=== PATIENT | male | born 1935 | race Caucasian/White ===

== ENCOUNTER 2017-05-16 08:00 | Outpatient (CLI) | payer MEDICARE, OTHER ==
[2017-05-17 11:58] LABS: BASOPHILS # (AUTO) 0.1 10^3/uL (0.0-0.1); BASOPHILS % (AUTO) 0.9 %; EOSINOPHILS # (AUTO) 0.5 10^3/uL (0.0-0.7); EOSINOPHILS % (AUTO) 7.2 %; HCT - HEMATOCRIT 42.4 % (42.0-52.0); LYMPHOCYTES # (AUTO) 1.3 10^3/uL (1.5-3.5); LYMPHOCYTES % (AUTO) 17.6 %; MEAN CORPUSCULAR HGB CONC 33.1 g/dL (32.0-36.0); MEAN CORPUSCULAR VOLUME 90.7 fL (80.0-94.0); MONOCYTES # (AUTO) 0.5 10^3/uL (0.0-1.0); MONOCYTES % (AUTO) 6.6 %; NEUTROPHILS # (AUTO) 4.9 10^3/uL (1.5-6.6); NEUTROPHILS % (AUTO) 67.7 %; NUCLEATED RED BLOOD CELLS AUTO 0.1 /100WBC; RED BLOOD COUNT 4.68 10^6/uL (4.70-6.10); RED CELL DISTRIBUTION WIDTH 15.2 % (12.0-15.0); UNCORRECTED WHITE BLOOD COUNT 7.2 x10^3/uL; WHITE BLOOD COUNT 7.2 x10^3/uL (4.8-10.8)
[2017-05-17 12:22] LABS: ALBUMIN/GLOBULIN RATIO 1.2 (1.0-2.2); BILIRUBIN,TOTAL 0.9 mg/dL (0.2-1.0); BUN - BLOOD UREA NITROGEN 34 mg/dL (6-20); CALCIUM 9.1 mg/dL (8.5-10.3); CARBON DIOXIDE - CO2 27 mmol/L (21-32); CHLORIDE 102 mmol/L (101-111); CHOLESTEROL 175 mg/dL; CREATININE 1.4 mg/dL (0.6-1.2); GFR - MDRD 49 (>89); GLUCOSE 144 mg/dL (70-100); HDL CHOLESTEROL 35 mg/dL; LDL/HDL RATIO 2.3 (<3.6); POTASSIUM 4.6 mmol/L (3.5-5.0); SODIUM 137 mmol/L (135-145); TOTAL PROTEIN 7.5 g/dL (6.7-8.2); TRIGLYCERIDES 290 mg/dL; VLDL CHOLESTEROL 58 mg/dL
[2017-05-17 12:32] LABS: HEMOGLOBIN A1C 0.88 g/dL
== END 2017-05-16 08:01 | disposition home or self-care (01) ==
LOC: LAB.F 08:00
PROVIDERS: ATTEND Internal Medicine
DX: E11.9 Type 2 diabetes mellitus without complications (principal); E78.00 Pure hypercholesterolemia, unspecified; I10 Essential (primary) hypertension
CPT/HCPCS: 36415; 80053; 80061; 82043; 82570; 83036; 84156; 84443; 85025

== ENCOUNTER 2017-08-01 11:12 | Outpatient (CLI) | payer MEDICARE, OTHER | END 2017-08-01 11:13 | disposition home or self-care (01) | LOC: SC 11:12 | PROVIDERS: ATTEND Internal Medicine Pulmonary Disease | DX: G47.33 Obstructive sleep apnea (adult) (pediatric) (principal) | CPT/HCPCS: 99203; G0463; 99212 ==

== ENCOUNTER 2017-09-05 14:13 | Outpatient (CLI) | payer MEDICARE, OTHER | END 2017-09-05 14:14 | disposition home or self-care (01) | LOC: SC 14:13 | PROVIDERS: ATTEND Internal Medicine Pulmonary Disease | DX: G47.33 Obstructive sleep apnea (adult) (pediatric) (principal) | CPT/HCPCS: 99213; G0463; 99212 ==

== ENCOUNTER 2017-12-26 07:22 | Outpatient (CLI) | payer MEDICARE, OTHER ==
[2017-12-26 11:06] LABS: BASOPHILS # (AUTO) 0.1 10^3/uL (0.0-0.1); BASOPHILS % (AUTO) 1.4 %; EOSINOPHILS # (AUTO) 0.5 10^3/uL (0.0-0.7); EOSINOPHILS % (AUTO) 7.7 %; HGB - HEMOGLOBIN 12.8 g/dL (14.0-18.0); LYMPHOCYTES % (AUTO) 17.3 %; MEAN CORPUSCULAR HEMOGLOBIN 30.1 pg (27.0-31.0); MEAN CORPUSCULAR HGB CONC 33.3 g/dL (32.0-36.0); MEAN CORPUSCULAR VOLUME 90.4 fL (80.0-94.0); MEAN PLATELET VOLUME 7.4 fL (7.4-11.4); MONOCYTES # (AUTO) 0.5 10^3/uL (0.0-1.0); MONOCYTES % (AUTO) 8.4 %; NEUTROPHILS # (AUTO) 3.9 10^3/uL (1.5-6.6); NEUTROPHILS % (AUTO) 65.2 %; PLT - PLATELET COUNT 223 10^3/uL (130-450); RED BLOOD COUNT 4.24 10^6/uL (4.70-6.10); RED CELL DISTRIBUTION WIDTH 14.6 % (12.0-15.0)
[2017-12-26 11:33] LABS: ALBUMIN 3.9 g/dL (3.2-5.5); ALBUMIN/GLOBULIN RATIO 1.2 (1.0-2.2); ALKALINE PHOSPHATASE 57 IU/L (42-121); ALT ALANINE AMINOTRANSFERASE 21 IU/L (10-60); AST ASPARTATE AMINOTRANSFERASE 20 IU/L (10-42); BILIRUBIN,TOTAL 0.8 mg/dL (0.2-1.0); BUN - BLOOD UREA NITROGEN 34 mg/dL (6-20); CALCIUM 8.8 mg/dL (8.5-10.3); CARBON DIOXIDE - CO2 26 mmol/L (21-32); CHLORIDE 104 mmol/L (101-111); CHOL/HDL RATIO 4.9 (<5.0); CHOLESTEROL 166 mg/dL; CREATININE 1.5 mg/dL (0.6-1.2); GFR - MDRD 45 (>89); GLUCOSE 132 mg/dL (70-100); HDL CHOLESTEROL 34 mg/dL; LDL CHOLESTEROL,CALCULATED 101 mg/dL; SODIUM 137 mmol/L (135-145); TOTAL PROTEIN 7.2 g/dL (6.7-8.2); VLDL CHOLESTEROL 31 mg/dL
[2017-12-26 11:36] LABS: HB2 TOTAL 14.4 g/dL; HEMOGLOBIN A1C 0.74 g/dL; HEMOGLOBIN A1C % 6.9 % (4.6-6.2)
== END 2017-12-26 07:23 | disposition home or self-care (01) ==
LOC: LAB.F 07:22
PROVIDERS: ATTEND Family Medicine
DX: E78.00 Pure hypercholesterolemia, unspecified (principal); E11.9 Type 2 diabetes mellitus without complications; I10 Essential (primary) hypertension; J44.9 Chronic obstructive pulmonary disease, unspecified
CPT/HCPCS: 36415; 80053; 80061; 83036; 83721; 85025

== ENCOUNTER 2018-08-29 11:57 | Outpatient (CLI) | payer MEDICARE, OTHER ==
[2018-08-29 17:37] LABS: HB2 TOTAL 13.8 g/dL; HEMOGLOBIN A1C 0.85 g/dL; HEMOGLOBIN A1C % 7.8 % (4.6-6.2)
[2018-08-29 17:39] LABS: ALBUMIN 3.6 g/dL (3.2-5.5); ALBUMIN/GLOBULIN RATIO 1.1 (1.0-2.2); ALKALINE PHOSPHATASE 52 IU/L (42-121); ALT ALANINE AMINOTRANSFERASE 21 IU/L (10-60); AST ASPARTATE AMINOTRANSFERASE 19 IU/L (10-42); BILIRUBIN,TOTAL 0.8 mg/dL (0.2-1.0); BUN - BLOOD UREA NITROGEN 33 mg/dL (6-20); CALCIUM 8.7 mg/dL (8.5-10.3); CARBON DIOXIDE - CO2 24 mmol/L (21-32); CHLORIDE 101 mmol/L (101-111); CHOLESTEROL 154 mg/dL; CREATININE 1.5 mg/dL (0.6-1.2); GFR - MDRD 45 (>89); GLUCOSE 205 mg/dL (70-100); HDL CHOLESTEROL 31 mg/dL; LDL CHOLESTEROL,CALCULATED 81 mg/dL; LDL/HDL RATIO 2.6 (<3.6); SODIUM 134 mmol/L (135-145); VLDL CHOLESTEROL 42 mg/dL
== END 2018-08-29 11:58 | disposition home or self-care (01) ==
LOC: LAB.F 11:57
PROVIDERS: ATTEND Internal Medicine
DX: E11.9 Type 2 diabetes mellitus without complications (principal); E78.00 Pure hypercholesterolemia, unspecified
CPT/HCPCS: 36415; 80053; 80061; 83036; 83721

== ENCOUNTER 2019-04-11 08:47 | Outpatient (CLI) | payer MEDICARE, OTHER ==
[2019-04-11 18:13] LABS: HB2 TOTAL 13.3 g/dL; HEMOGLOBIN A1C 0.78 g/dL; HEMOGLOBIN A1C % 7.5 % (4.6-6.2)
[2019-04-11 18:15] LABS: ALBUMIN 3.8 g/dL (3.2-5.5); ALBUMIN/GLOBULIN RATIO 1.1 (1.0-2.2); ALKALINE PHOSPHATASE 44 IU/L (42-121); ALT ALANINE AMINOTRANSFERASE 24 IU/L (10-60); AST ASPARTATE AMINOTRANSFERASE 19 IU/L (10-42); BILIRUBIN,TOTAL 0.8 mg/dL (0.2-1.0); BUN - BLOOD UREA NITROGEN 36 mg/dL (6-20); CALCIUM 8.8 mg/dL (8.5-10.3); CARBON DIOXIDE - CO2 26 mmol/L (21-32); CHLORIDE 105 mmol/L (101-111); CHOL/HDL RATIO 5.2 (<5.0); CHOLESTEROL 165 mg/dL; CREATININE 1.6 mg/dL (0.6-1.2); GFR - MDRD 41 (>89); GLUCOSE 233 mg/dL (70-100); HDL CHOLESTEROL 32 mg/dL; LDL CHOLESTEROL,CALCULATED 97 mg/dL; SODIUM 139 mmol/L (135-145); TOTAL PROTEIN 7.3 g/dL (6.7-8.2); VLDL CHOLESTEROL 36 mg/dL
== END 2019-04-11 08:48 | disposition home or self-care (01) ==
LOC: LAB.S 08:47
PROVIDERS: ATTEND Internal Medicine
DX: E78.00 Pure hypercholesterolemia, unspecified (principal); E11.9 Type 2 diabetes mellitus without complications
CPT/HCPCS: 36415; 80053; 80061; 83036; 83721

== ENCOUNTER 2019-08-03 10:08 | Outpatient (CLI) | payer MEDICARE, OTHER ==
[2019-08-03 18:40] LABS: ALBUMIN 3.7 g/dL (3.2-5.5); ALBUMIN/GLOBULIN RATIO 1.1 (1.0-2.2); ALKALINE PHOSPHATASE 56 IU/L (42-121); ALT ALANINE AMINOTRANSFERASE 22 IU/L (10-60); AST ASPARTATE AMINOTRANSFERASE 19 IU/L (10-42); BILIRUBIN,TOTAL 0.9 mg/dL (0.2-1.0); BUN - BLOOD UREA NITROGEN 27 mg/dL (6-20); CALCIUM 8.8 mg/dL (8.5-10.3); CARBON DIOXIDE - CO2 27 mmol/L (21-32); CHLORIDE 103 mmol/L (101-111); CHOL/HDL RATIO 4.4 (<5.0); CHOLESTEROL 170 mg/dL; CREATININE 1.7 mg/dL (0.6-1.2); GFR - MDRD 39 (>89); GLUCOSE 230 mg/dL (70-100); HDL CHOLESTEROL 39 mg/dL; LDL CHOLESTEROL,CALCULATED 91 mg/dL; LDL/HDL RATIO 2.3 (<3.6); SODIUM 140 mmol/L (135-145); TOTAL PROTEIN 7.1 g/dL (6.7-8.2); VLDL CHOLESTEROL 40 mg/dL
[2019-08-03 19:03] LABS: HB2 TOTAL 12.5 g/dL; HEMOGLOBIN A1C 0.87 g/dL; HEMOGLOBIN A1C % 8.5 % (4.6-6.2)
== END 2019-08-03 10:09 | disposition home or self-care (01) ==
LOC: LAB.S 10:08
PROVIDERS: ATTEND Internal Medicine
DX: E11.9 Type 2 diabetes mellitus without complications (principal); E78.00 Pure hypercholesterolemia, unspecified
CPT/HCPCS: 36415; 80053; 80061; 83036; 83721

== ENCOUNTER 2020-05-26 11:42 | Outpatient (CLI) | payer MEDICARE, OTHER | END 2020-05-26 11:43 | disposition critical access hospital (66) | LOC: EMS 11:42 | PROVIDERS: ATTEND Surgery | DX: R55 Syncope and collapse (principal); R11.2 Nausea with vomiting, unspecified | CPT/HCPCS: A0425; A0427 ==

== ENCOUNTER 2020-05-26 12:08 | Emergency (ER) | payer MEDICARE, OTHER ==
--- NOTE | 2020-05-26 12:58 | ED Physician Documentation ---
History of Present Illness - Stated complaint Stated Complaint: NEAR SYNCOPE - History obtained from History obtained from: Patient (see downtime charting) Results - EKG (time done) 1212 Rate: Rate (enter#) (70) Rhythm: Atrial flutter, Paced (ventricular) Computer interpretation: Agree with computer PD MEDICAL DECISION MAKING - ED course ED course: Orthostatics normal 69yo M nearsyncopal with BM. SBP was 60. Now better. Labs unremarkable, renal function at baseline. No sx Departure - Departure Disposition: 01 Home, Self Care Clinical Impression: Near syncope, Transient hypotension Condition: Stable
[2020-05-26 16:33] LABS: ALBUMIN 3.3 g/dL (3.2-5.5); BILIRUBIN,TOTAL 0.6 mg/dL (0.2-1.0); CALCIUM 8.7 mg/dL (8.5-10.3); CREATININE 1.7 mg/dL (0.6-1.2); TOTAL PROTEIN 6.5 g/dL (6.7-8.2)
[2020-05-26 17:19] LABS: BASOPHILS # (AUTO) 0.1 10^3/uL (0.0-0.1); BASOPHILS % (AUTO) 0.7 %; EOSINOPHILS # (AUTO) 0.4 10^3/uL (0.0-0.7); EOSINOPHILS % (AUTO) 3.6 %; HGB - HEMOGLOBIN 10.8 g/dL (14.0-18.0); LYMPHOCYTES # (AUTO) 0.9 10^3/uL (1.5-3.5); LYMPHOCYTES % (AUTO) 8.1 %; MEAN CORPUSCULAR HGB CONC 32.4 g/dL (32.0-36.0); MEAN CORPUSCULAR VOLUME 95.7 fL (80.0-94.0); MEAN PLATELET VOLUME 9.1 fL (7.4-11.4); MONOCYTES # (AUTO) 0.6 10^3/uL (0.0-1.0); MONOCYTES % (AUTO) 5.1 %; NEUTROPHILS # (AUTO) 9.2 10^3/uL (1.5-6.6); PLT - PLATELET COUNT 245 10^3/uL (130-450); RED BLOOD COUNT 3.48 10^6/uL (4.70-6.10); RED CELL DISTRIBUTION WIDTH 12.8 % (12.0-15.0); WHITE BLOOD COUNT 11.2 x10^3/uL (4.8-10.8)
== END 2020-05-26 14:26 | disposition home or self-care (01) ==
LOC: EDUNIT# → ED 12:08
DX: R55 Syncope and collapse (principal); I95.9 Hypotension, unspecified; I48.92 Unspecified atrial flutter; Z95.0 Presence of cardiac pacemaker; I10 Essential (primary) hypertension; E11.9 Type 2 diabetes mellitus without complications
CPT/HCPCS: 36415; 80053; 83690; 84484; 85025; 93005; 99283

== ENCOUNTER 2020-06-20 09:25 | Outpatient (CLI) | payer MEDICARE, OTHER ==
[2020-06-20 15:49] LABS: CALCIUM 9.1 mg/dL (8.5-10.3); CREATININE 1.6 mg/dL (0.6-1.2)
[2020-06-20 16:08] LABS: CREATININE,URINE 97.4 mg/dL; MICROALBUM/CREATININE RATIO,UR 760.8 ug/mg (<30.0); MICROALBUMIN,URINE 74.1 mg/dL (0-300.0)
[2020-06-20 19:58] LABS: HEMOGLOBIN A1c% 6.5 % (4.27-6.07)
== END 2020-06-20 09:26 | disposition home or self-care (01) ==
LOC: LAB.S 09:25
PROVIDERS: ATTEND Registered Nurse
DX: E78.00 Pure hypercholesterolemia, unspecified (principal); I10 Essential (primary) hypertension; E11.9 Type 2 diabetes mellitus without complications
CPT/HCPCS: 36415; 80048; 82043; 82570; 83036

== ENCOUNTER 2021-02-03 10:42 | Outpatient (CLI) | payer MEDICARE, OTHER ==
[2021-02-03 14:27] LABS: BASOPHILS # (AUTO) 0.1 10^3/uL (0.0-0.1); BASOPHILS % (AUTO) 0.9 %; EOSINOPHILS # (AUTO) 0.4 10^3/uL (0.0-0.7); EOSINOPHILS % (AUTO) 4.9 %; HCT - HEMATOCRIT 36.4 % (42.0-52.0); HGB - HEMOGLOBIN 11.7 g/dL (14.0-18.0); LYMPHOCYTES # (AUTO) 0.9 10^3/uL (1.5-3.5); LYMPHOCYTES % (AUTO) 11.8 %; MEAN CORPUSCULAR HEMOGLOBIN 30.1 pg (27.0-31.0); MEAN CORPUSCULAR HGB CONC 32.1 g/dL (32.0-36.0); MEAN CORPUSCULAR VOLUME 93.6 fL (80.0-94.0); MEAN PLATELET VOLUME 9.8 fL (7.4-11.4); MONOCYTES # (AUTO) 0.5 10^3/uL (0.0-1.0); MONOCYTES % (AUTO) 6.7 %; NEUTROPHILS % (AUTO) 75.6 %; PLT - PLATELET COUNT 241 10^3/uL (130-450); RED BLOOD COUNT 3.89 10^6/uL (4.70-6.10); RED CELL DISTRIBUTION WIDTH 13.3 % (12.0-15.0); WHITE BLOOD COUNT 7.9 x10^3/uL (4.8-10.8)
[2021-02-03 15:09] LABS: ALBUMIN 3.9 g/dL (3.2-5.5); ALBUMIN/GLOBULIN RATIO 1.2 (1.0-2.2); ALKALINE PHOSPHATASE 48 IU/L (42-121); ALT ALANINE AMINOTRANSFERASE 23 IU/L (10-60); AST ASPARTATE AMINOTRANSFERASE 18 IU/L (10-42); BUN - BLOOD UREA NITROGEN 40 mg/dL (6-20); CALCIUM 9.1 mg/dL (8.5-10.3); CARBON DIOXIDE - CO2 24 mmol/L (21-32); CHLORIDE 105 mmol/L (101-111); CHOL/HDL RATIO 3.9 (<5.0); CHOLESTEROL 154 mg/dL; CREATININE 1.7 mg/dL (0.6-1.2); GFR - MDRD 38 (>89); GLUCOSE 160 mg/dL (70-100); HDL CHOLESTEROL 39 mg/dL; LDL CHOLESTEROL,CALCULATED 94 mg/dL; LDL/HDL RATIO 2.4 (<3.6); POTASSIUM 4.4 mmol/L (3.5-5.0); SODIUM 139 mmol/L (135-145); TOTAL PROTEIN 7.2 g/dL (6.7-8.2); TRIGLYCERIDES 106 mg/dL; VLDL CHOLESTEROL 21 mg/dL
[2021-02-03 15:12] LABS: THYROID STIMULATING HORMONE 2.08 uIU/mL (0.34-5.60)
[2021-02-03 15:24] LABS: CREATININE,URINE 137.7 mg/dL; MICROALBUM/CREATININE RATIO,UR 827.9 ug/mg (<30.0)
[2021-02-03 20:48] LABS: ESTIMATED AVERAGE GLUCOSE 126 mg/dL (70-100)
== END 2021-02-03 10:43 | disposition home or self-care (01) ==
LOC: LAB.S 10:42
PROVIDERS: ATTEND Registered Nurse
DX: E78.5 Hyperlipidemia, unspecified (principal); J44.9 Chronic obstructive pulmonary disease, unspecified; I10 Essential (primary) hypertension; E11.9 Type 2 diabetes mellitus without complications
CPT/HCPCS: 36415; 80053; 80061; 82043; 82570; 83036; 83721; 84443; 85025

== ENCOUNTER 2022-03-17 10:50 | Outpatient (CLI) | payer MEDICARE, OTHER ==
[2022-03-17 14:40] LABS: BASOPHILS # (AUTO) 0.1 10^3/uL (0.0-0.1); BASOPHILS % (AUTO) 0.7 %; EOSINOPHILS # (AUTO) 0.3 10^3/uL (0.0-0.7); HCT - HEMATOCRIT 37.3 % (42.0-52.0); HGB - HEMOGLOBIN 11.6 g/dL (14.0-18.0); LYMPHOCYTES # (AUTO) 0.9 10^3/uL (1.5-3.5); LYMPHOCYTES % (AUTO) 12.6 %; MEAN CORPUSCULAR HEMOGLOBIN 29.9 pg (27.0-31.0); MEAN CORPUSCULAR HGB CONC 31.1 g/dL (32.0-36.0); MEAN CORPUSCULAR VOLUME 96.1 fL (80.0-94.0); MONOCYTES # (AUTO) 0.6 10^3/uL (0.0-1.0); MONOCYTES % (AUTO) 8.2 %; NEUTROPHILS % (AUTO) 74.4 %; PLT - PLATELET COUNT 189 10^3/uL (130-450); RED BLOOD COUNT 3.88 10^6/uL (4.70-6.10); RED CELL DISTRIBUTION WIDTH 13.7 % (12.0-15.0); WHITE BLOOD COUNT 6.7 x10^3/uL (4.8-10.8)
[2022-03-17 15:30] LABS: THYROID STIMULATING HORMONE 3.27 uIU/mL (0.34-5.60)
[2022-03-17 15:34] LABS: ALBUMIN 3.1 g/dL (3.2-5.5); ALBUMIN/GLOBULIN RATIO 0.9 (1.0-2.2); ALKALINE PHOSPHATASE 57 IU/L (42-121); ALT ALANINE AMINOTRANSFERASE 27 IU/L (10-60); AST ASPARTATE AMINOTRANSFERASE 25 IU/L (10-42); BILIRUBIN,TOTAL 0.9 mg/dL (0.2-1.0); BUN - BLOOD UREA NITROGEN 44 mg/dL (6-20); CALCIUM 8.6 mg/dL (8.5-10.3); CARBON DIOXIDE - CO2 29 mmol/L (21-32); CHLORIDE 105 mmol/L (101-111); CHOL/HDL RATIO 4.3 (<5.0); CHOLESTEROL 172 mg/dL; CREATININE 1.8 mg/dL (0.6-1.2); GFR - MDRD 36 (>89); GLUCOSE 130 mg/dL (70-100); HDL CHOLESTEROL 40 mg/dL; LDL CHOLESTEROL,CALCULATED 89 mg/dL; LDL/HDL RATIO 2.2 (<3.6); POTASSIUM 4.9 mmol/L (3.5-5.0); SODIUM 139 mmol/L (135-145); TOTAL PROTEIN 6.6 g/dL (6.7-8.2); TRIGLYCERIDES 217 mg/dL; VLDL CHOLESTEROL 43 mg/dL
[2022-03-17 20:54] LABS: ESTIMATED AVERAGE GLUCOSE 160 mg/dL (70-100); HEMOGLOBIN A1c% 7.2 % (4.27-6.07)
== END 2022-03-17 10:51 | disposition home or self-care (01) ==
LOC: LAB.S 10:50
PROVIDERS: ATTEND Registered Nurse
DX: Z00.00 Encounter for general adult medical examination without abnormal findings (principal); E78.00 Pure hypercholesterolemia, unspecified; I10 Essential (primary) hypertension; E11.9 Type 2 diabetes mellitus without complications
CPT/HCPCS: 36415; 80053; 80061; 83036; 83721; 84443; 85025

== ENCOUNTER 2022-05-07 11:30 | Outpatient (CLI) | payer MEDICARE, OTHER ==
[2022-05-07 14:26] LABS: BASOPHILS # (AUTO) 0.1 10^3/uL (0.0-0.1); BASOPHILS % (AUTO) 0.8 %; EOSINOPHILS # (AUTO) 0.3 10^3/uL (0.0-0.7); EOSINOPHILS % (AUTO) 3.5 %; HCT - HEMATOCRIT 36.2 % (42.0-52.0); HGB - HEMOGLOBIN 11.4 g/dL (14.0-18.0); LYMPHOCYTES # (AUTO) 0.7 10^3/uL (1.5-3.5); LYMPHOCYTES % (AUTO) 9.5 %; MEAN CORPUSCULAR HEMOGLOBIN 29.8 pg (27.0-31.0); MEAN CORPUSCULAR HGB CONC 31.5 g/dL (32.0-36.0); MEAN CORPUSCULAR VOLUME 94.5 fL (80.0-94.0); MEAN PLATELET VOLUME 9.9 fL (7.4-11.4); MONOCYTES # (AUTO) 0.6 10^3/uL (0.0-1.0); MONOCYTES % (AUTO) 7.6 %; NEUTROPHILS # (AUTO) 6.1 10^3/uL (1.5-6.6); NEUTROPHILS % (AUTO) 78.3 %; PLT - PLATELET COUNT 235 10^3/uL (130-450); RED BLOOD COUNT 3.83 10^6/uL (4.70-6.10); RED CELL DISTRIBUTION WIDTH 13.4 % (12.0-15.0); WHITE BLOOD COUNT 7.7 x10^3/uL (4.8-10.8)
[2022-05-07 14:47] LABS: ALBUMIN/GLOBULIN RATIO 0.9 (1.0-2.2); BILIRUBIN,TOTAL 0.6 mg/dL (0.2-1.0); CALCIUM 8.7 mg/dL (8.5-10.3); CREATININE 2.2 mg/dL (0.6-1.2); POTASSIUM 4.3 mmol/L (3.5-5.0); TOTAL PROTEIN 6.5 g/dL (6.7-8.2)
== END 2022-05-07 11:31 | disposition home or self-care (01) ==
LOC: LAB.S 11:30
PROVIDERS: ATTEND Registered Nurse
DX: I50.9 Heart failure, unspecified (principal); N28.9 Disorder of kidney and ureter, unspecified
CPT/HCPCS: 36415; 80053; 83880; 85025

== ENCOUNTER 2022-06-17 11:10 | Outpatient (CLI) | payer MEDICARE, OTHER ==
[2022-06-17 14:55] LABS: CREATININE,URINE 32.1 mg/dL; PROTEIN/CREATININE RATIO,URINE 4.2 (<=0.2)
[2022-06-17 15:10] LABS: ALBUMIN 3.5 g/dL (3.2-5.5); CALCIUM 8.9 mg/dL (8.5-10.3); CREATININE 2.3 mg/dL (0.6-1.2); PHOSPHORUS 3.8 mg/dL (2.5-4.6); POTASSIUM 4.4 mmol/L (3.5-5.0)
== END 2022-06-17 11:11 | disposition home or self-care (01) ==
LOC: LAB.S 11:10
PROVIDERS: ATTEND Internal Medicine Nephrology
DX: N18.32 Chronic kidney disease, stage 3b (principal)
CPT/HCPCS: 36415; 80069; 82570; 84156

== ENCOUNTER 2022-06-25 10:27 | Outpatient (CLI) | payer MEDICARE, OTHER ==
[2022-06-25 15:22] LABS: ALBUMIN 3.2 g/dL (3.2-5.5); CALCIUM 8.5 mg/dL (8.5-10.3); CREATININE 2.4 mg/dL (0.6-1.2); PHOSPHORUS 4.5 mg/dL (2.5-4.6)
[2022-06-25 16:59] LABS: CREATININE,URINE 53.9 mg/dL; PROTEIN/CREATININE RATIO,URINE 2.9 (<=0.2)
== END 2022-06-25 10:28 | disposition home or self-care (01) ==
LOC: LAB.S 10:27
PROVIDERS: ATTEND Internal Medicine Nephrology
DX: N18.32 Chronic kidney disease, stage 3b (principal)
CPT/HCPCS: 36415; 80069; 82570; 84156

== ENCOUNTER 2022-07-23 10:39 | Outpatient (CLI) | payer MEDICARE, OTHER ==
[2022-07-23 15:33] LABS: CREATININE,URINE 25.6 mg/dL; PROTEIN/CREATININE RATIO,URINE 3.2 (<=0.2)
[2022-07-23 15:57] LABS: ALBUMIN 3.4 g/dL (3.2-5.5); CALCIUM 8.7 mg/dL (8.5-10.3); CREATININE 2.5 mg/dL (0.6-1.2); PHOSPHORUS 4.6 mg/dL (2.5-4.6); POTASSIUM 4.3 mmol/L (3.5-5.0)
== END 2022-07-23 10:40 | disposition home or self-care (01) ==
LOC: LAB.S 10:39
PROVIDERS: ATTEND Internal Medicine Nephrology
DX: N18.32 Chronic kidney disease, stage 3b (principal)
CPT/HCPCS: 36415; 80069; 82570; 84156

== ENCOUNTER 2022-08-07 06:40 | Outpatient (CLI) | payer MEDICARE, OTHER | END 2022-08-07 06:41 | disposition critical access hospital (66) | LOC: EMS 06:40 | DX: U07.1 COVID-19 (principal); R53.1 Weakness; R55 Syncope and collapse | CPT/HCPCS: A0425; A0429 ==

== ENCOUNTER 2022-08-07 09:28 | Inpatient (IN) | payer MEDICARE, OTHER ==
--- OUTSIDE RECORDS SUMMARY | 2022-08-07 09:38 | EXTERNAL MEDICAL SUMMARY RPT | Continuity of Care Document ---
:1935 Author Organization [facility] Address [address] [place] [address] Phone Care Team Providers Name Role Phone Unavailable Unavailable Unavailable Claudette Hui Unavailable Unavailable Allergies No information. Encounters No information. Functional Status No information. Immunizations No information. Medications date description facility 2022-06-13 00:00 insulin glargine Walk[facility] 2022-07-28 00:00 insulin glargine Walk-In Clinic [facility] 2022-06-01 00:00 losartan-hydrochlorothiazide Walk-In [facility] Services [facility] 2022-06-02 00:00 losartan-hydrochlorothiazide Walk-In [facility] 2022-06-17 00:00 losartan-hydrochlorothiazide Walk-In [facility] 2022-06-18 00:00 losartan-hydrochlorothiazide Walk-In [facility] 2022-06-25 00:00 losartan-hydrochlorothiazide Walk-In [facility] 2022-06-29 00:00 losartan-hydrochlorothiazide Walk-In [facility] 2022-07-01 00:00 losartan-hydrochlorothiazide Walk-In [facility] 2022-07-23 00:00 losartan-hydrochlorothiazide Walk-In [facility] 2022-07-26 00:00 losartan-hydrochlorothiazide Walk-In [facility] 2022-07-28 00:00 losartan-hydrochlorothiazide Walk-In [facility] 2022-08-01 00:00 losartan-hydrochlorothiazide Walk-In [facility] 2022-08-05 00:00 losartan-hydrochlorothiazide Walk-In [facility] 2022-06-01 00:00 hydrochlorothiazide [facility] 2022-06-02 00:00 hydrochlorothiazide [facility] 2022-06-17 00:00 hydrochlorothiazide [facility] 2022-06-18 00:00 hydrochlorothiazide [facility] 2022-06-25 00:00 hydrochlorothiazide [facility] 2022-06-29 00:00 hydrochlorothiazide [facility] 2022-07-01 00:00 hydrochlorothiazide [facility] 2022-07-23 00:00 hydrochlorothiazide [facility] 2022-07-26 00:00 hydrochlorothiazide [facility] 2022-07-28 00:00 hydrochlorothiazide [facility] 2022-08-01 00:00 hydrochlorothiazide [facility] 2022-08-05 00:00 hydrochlorothiazide [facility] 2022-06-01 00:00 furosemide [facility] 2022-06-02 00:00 furosemide [facility] 2022-06-17 00:00 furosemide [facility] 2022-06-18 00:00 furosemide [facility] 2022-06-25 00:00 furosemide [facility] 2022-06-29 00:00 furosemide [facility] 2022-07-01 00:00 furosemide [facility] 2022-07-23 00:00 furosemide [facility] 2022-07-26 00:00 furosemide [facility] 2022-07-28 00:00 furosemide [facility] 2022-08-01 00:00 furosemide [facility] 2022-08-05 00:00 furosemide [facility] 2022-07-28 00:00 blood-glucose meter Walk-In Clinic [facility] 2022-08-05 00:00 blood-glucose meter Walk-In [facility] 2022-07-28 00:00 pen needle, diabetic Walk-In Clinic [facility] 2022-06-13 00:00 insulin glargine [facility] 2022-07-28 00:00 insulin glargine [facility] 2022-06-01 00:00 ascorbic acid (vitamin c) Walk-In Clin [facility] 2022-06-02 00:00 ascorbic acid (vitamin c) Walk-In Clin ic [facility] 2022-06-17 00:00 ascorbic acid (vitamin c) Walk-In Clin ic [facility] 2022-06-18 00:00 ascorbic acid (vitamin c) Walk-In Clin ic [facility] 2022-06-25 00:00 ascorbic acid (vitamin c) Walk-In Clin [facility] 2022-06-29 00:00 ascorbic acid (vitamin c) Walk-In Clin ic [facility] 2022-07-01 00:00 ascorbic acid (vitamin c) Walk-In Clin [facility] 2022-07-23 00:00 ascorbic acid (vitamin c) Walk-In Clin [facility] 2022-07-26 00:00 ascorbic acid (vitamin c) Walk-In Clin ic [facility] 2022-07-28 00:00 ascorbic acid (vitamin c) Walk-In Clin ic [facility] 2022-08-01 00:00 ascorbic acid (vitamin c) Walk-In Clin ic [facility] 2022-08-05 00:00 ascorbic acid (vitamin c) Walk-In Clin ic [facility] 2022-06-01 00:00 ascorbic acid (vitamin c) Walk-In Clin ic [facility] 2022-06-02 00:00 ascorbic acid (vitamin c) Walk-In Clin ic [facility] 2022-06-17 00:00 ascorbic acid (vitamin c) Walk-In Clin ic [facility] 2022-06-18 00:00 ascorbic acid (vitamin c) Walk-In Clin ic [facility] 2022-06-25 00:00 ascorbic acid (vitamin c) Walk-In Clin ic [facility] 2022-06-29 00:00 ascorbic acid (vitamin c) Walk-In Clin ic [facility] 2022-07-01 00:00 ascorbic acid (vitamin c) Walk-In Clin [facility] 2022-07-23 00:00 ascorbic acid (vitamin c) Walk-In Clin ic [facility] 2022-07-26 00:00 ascorbic acid (vitamin c) Walk-In Clin ic [facility] 2022-07-28 00:00 ascorbic acid (vitamin c) Walk-In Clin ic [facility] 2022-08-01 00:00 ascorbic acid (vitamin c) Walk-In Clin ic [facility] 2022-08-05 00:00 ascorbic acid (vitamin c) Walk-In Clin ic [facility] 2022-06-01 00:00 furosemide Walk[facility]In [facility] 2022-06-02 00:00 furosemide Walk[facility] 2022-06-17 00:00 furosemide [facility] 2022-06-18 00:00 furosemide [facility] 2022-06-25 00:00 furosemide [facility] 2022-06-29 00:00 furosemide [facility] 2022-07-01 00:00 furosemide [facility] 2022-07-23 00:00 furosemide Walk[facility] 2022-07-26 00:00 furosemide [facility] 2022-07-28 00:00 furosemide [facility] 2022-08-01 00:00 furosemide [facility] 2022-08-05 00:00 furosemide [facility] 2022-06-01 00:00 ascorbic acid (vitamin c) Walk-In Clin ic [facility] 2022-06-02 00:00 ascorbic acid (vitamin c) Walk-In Clin ic [facility] 2022-06-17 00:00 ascorbic acid (vitamin c) Walk-In Clin ic [facility] 2022-06-18 00:00 ascorbic acid (vitamin c) Walk-In Clin ic [facility] 2022-06-25 00:00 ascorbic acid (vitamin c) Walk-In Clin ic [facility] 2022-06-29 00:00 ascorbic acid (vitamin c) Walk-In Clin ic [facility] 2022-07-01 00:00 ascorbic acid (vitamin c) Walk-In Clin ic [facility] 2022-07-23 00:00 ascorbic acid (vitamin c) Walk-In Clin [facility] 2022-07-26 00:00 ascorbic acid (vitamin c) Walk-In Clin ic [facility] 2022-07-28 00:00 ascorbic acid (vitamin c) Walk-In Clin [facility] 2022-08-01 00:00 ascorbic acid (vitamin c) Walk-In Clin [facility] 2022-08-05 00:00 ascorbic acid (vitamin c) Walk-In Clin [facility] 2022-06-01 00:00 ascorbic acid (vitamin c) Walk-In Clin [facility] 2022-06-02 00:00 ascorbic acid (vitamin c) Walk-In Clin ic [facility] 2022-06-17 00:00 ascorbic acid (vitamin c) Walk-In Clin ic [facility] 2022-06-18 00:00 ascorbic acid (vitamin c) Walk-In Clin ic [facility] 2022-06-25 00:00 ascorbic acid (vitamin c) Walk-In Clin ic [facility] 2022-06-29 00:00 ascorbic acid (vitamin c) Walk-In Clin ic [facility] 2022-07-01 00:00 ascorbic acid (vitamin c) Walk-In Clin [facility] 2022-07-23 00:00 ascorbic acid (vitamin c) Walk-In Clin ic [facility] 2022-07-26 00:00 ascorbic acid (vitamin c) Walk-In Clin ic [facility] 2022-07-28 00:00 ascorbic acid (vitamin c) Walk-In Clin [facility] 2022-08-01 00:00 ascorbic acid (vitamin c) Walk-In Clin [facility] 2022-08-05 00:00 ascorbic acid (vitamin c) Walk-In Clin [facility] 2022-06-13 00:00 insulin glargine [facility] 2022-07-28 00:00 insulin glargine [facility] 2022-06-01 00:00 loratadine Walk[facility] 2022-06-02 00:00 loratadine [facility] 2022-06-17 00:00 loratadine [facility] 2022-06-18 00:00 loratadine [facility] 2022-06-25 00:00 loratadine [facility] 2022-06-29 00:00 loratadine [facility] 2022-07-01 00:00 loratadine [facility] 2022-07-23 00:00 loratadine [facility] 2022-07-26 00:00 loratadine [facility] 2022-07-28 00:00 loratadine [facility] 2022-08-01 00:00 loratadine [facility] 2022-08-05 00:00 loratadine [facility] 2022-06-01 00:00 furosemide [facility] 2022-06-02 00:00 furosemide [facility] 2022-06-17 00:00 furosemide [facility] 2022-06-18 00:00 furosemide [facility] 2022-06-25 00:00 furosemide [facility] 2022-06-29 00:00 furosemide [facility] 2022-07-01 00:00 furosemide [facility] 2022-07-23 00:00 furosemide [facility] 2022-07-26 00:00 furosemide [facility] 2022-07-28 00:00 furosemide [facility] 2022-08-01 00:00 furosemide [facility] 2022-08-05 00:00 furosemide [facility] 2022-06-01 00:00 loratadine [facility] 2022-06-02 00:00 loratadine [facility] 2022-06-17 00:00 loratadine [facility] 2022-06-18 00:00 loratadine [facility] 2022-06-25 00:00 loratadine [facility] 2022-06-29 00:00 loratadine [facility] 2022-07-01 00:00 loratadine [facility] 2022-07-23 00:00 loratadine [facility] 2022-07-26 00:00 loratadine [facility] 2022-07-28 00:00 loratadine [facility] 2022-08-01 00:00 loratadine [facility] 2022-08-05 00:00 loratadine [facility] 2022-06-01 00:00 ascorbic acid (vitamin c) Walk-In Clin ic [facility] 2022-06-02 00:00 ascorbic acid (vitamin c) Walk-In Clin [facility] 2022-06-17 00:00 ascorbic acid (vitamin c) Walk-In Clin ic [facility] 2022-06-18 00:00 ascorbic acid (vitamin c) Walk-In Clin [facility] 2022-06-25 00:00 ascorbic acid (vitamin c) Walk-In Clin ic [facility] 2022-06-29 00:00 ascorbic acid (vitamin c) Walk-In [facility] ic Primary Care & Anc[facility] Services [facility] 2022-07-01 00:00 ascorbic acid (vitamin c) Walk-In [facility] ic Primary Care [facility] Services [facility] 2022-07-23 00:00 ascorbic acid (vitamin c) Walk-In [facility] ic Primary [facility] Services [facility] 2022-07-26 00:00 ascorbic acid (vitamin c) Walk-In [facility] 2022-07-28 00:00 ascorbic acid (vitamin c) Walk-In [facility] 2022-08-01 00:00 ascorbic acid (vitamin c) Walk-In [facility] 2022-08-05 00:00 ascorbic acid (vitamin c) Walk-In [facility] 2022-06-01 00:00 losartan-hydrochlorothiazide Walk-In [facility] 2022-06-02 00:00 losartan-hydrochlorothiazide Walk[facility]In [facility] 2022-06-17 00:00 losartan-hydrochlorothiazide Walk[facility]In [facility] 2022-06-18 00:00 losartan-hydrochlorothiazide Walk-In [facility] 2022-06-25 00:00 losartan-hydrochlorothiazide Walk-In [facility] 2022-06-29 00:00 losartan-hydrochlorothiazide Walk-In [facility] 2022-07-01 00:00 losartan-hydrochlorothiazide Walk-In [facility] 2022-07-23 00:00 losartan-hydrochlorothiazide Walk-In [facility] 2022-07-26 00:00 losartan-hydrochlorothiazide Walk-In [facility] 2022-07-28 00:00 losartan-hydrochlorothiazide Walk-In [facility] 2022-08-01 00:00 losartan-hydrochlorothiazide Walk-In [facility] 2022-08-05 00:00 losartan-hydrochlorothiazide Walk-In [facility] 2022-06-01 00:00 furosemide [facility] 2022-06-02 00:00 furosemide [facility] 2022-06-17 00:00 furosemide [facility] 2022-06-18 00:00 furosemide [facility] 2022-06-25 00:00 furosemide [facility] 2022-06-29 00:00 furosemide [facility] 2022-07-01 00:00 furosemide [facility] 2022-07-23 00:00 furosemide [facility] 2022-07-26 00:00 furosemide [facility] 2022-07-28 00:00 furosemide Walk[facility] 2022-08-01 00:00 furosemide [facility] 2022-08-05 00:00 furosemide [facility] 2022-06-01 00:00 hydrochlorothiazide [facility] 2022-06-02 00:00 hydrochlorothiazide [facility] 2022-06-17 00:00 hydrochlorothiazide [facility] 2022-06-18 00:00 hydrochlorothiazide [facility] 2022-06-25 00:00 hydrochlorothiazide [facility] 2022-06-29 00:00 hydrochlorothiazide [facility] 2022-07-01 00:00 hydrochlorothiazide [facility] 2022-07-23 00:00 hydrochlorothiazide [facility] 2022-07-26 00:00 hydrochlorothiazide [facility] 2022-07-28 00:00 hydrochlorothiazide [facility] 2022-08-01 00:00 hydrochlorothiazide [facility] 2022-08-05 00:00 hydrochlorothiazide [facility] 2022-07-28 00:00 pen needle, diabetic Walk-In [facility] 2022-06-01 00:00 loratadine Walk-[facility] 2022-06-02 00:00 loratadine [facility] 2022-06-17 00:00 loratadine Walk[facility] 2022-06-18 00:00 loratadine Walk[facility] 2022-06-25 00:00 loratadine Walk[facility] 2022-06-29 00:00 loratadine Walk[facility] 2022-07-01 00:00 loratadine Walk[facility] 2022-07-23 00:00 loratadine Walk[facility] 2022-07-26 00:00 loratadine Walk[facility] 2022-07-28 00:00 loratadine Walk[facility] 2022-08-01 00:00 loratadine Walk[facility] 2022-08-05 00:00 loratadine Walk[facility] 2022-06-01 00:00 hydrochlorothiazide [facility] 2022-06-02 00:00 hydrochlorothiazide [facility] 2022-06-17 00:00 hydrochlorothiazide Walk-In [facility] 2022-06-18 00:00 hydrochlorothiazide Walk-In [facility] 2022-06-25 00:00 hydrochlorothiazide Walk-In [facility] 2022-06-29 00:00 hydrochlorothiazide Walk-In [facility] 2022-07-01 00:00 hydrochlorothiazide Walk-In [facility] 2022-07-23 00:00 hydrochlorothiazide Walk-In [facility] 2022-07-26 00:00 hydrochlorothiazide Walk-In [facility] 2022-07-28 00:00 hydrochlorothiazide Walk-In [facility] 2022-08-01 00:00 hydrochlorothiazide Walk-In [facility] 2022-08-05 00:00 hydrochlorothiazide Walk-In [facility] 2022-06-01 00:00 ascorbic acid (vitamin c) Walk-In Clin [facility] 2022-06-02 00:00 ascorbic acid (vitamin c) Walk-In Clin ic [facility] 2022-06-17 00:00 ascorbic acid (vitamin c) Walk-In Clin ic [facility] 2022-06-18 00:00 ascorbic acid (vitamin c) Walk-In Clin ic [facility] 2022-06-25 00:00 ascorbic acid (vitamin c) Walk-In Clin ic [facility] [facility] 2022-06-29 00:00 ascorbic acid (vitamin c) [facility] 2022-07-01 00:00 ascorbic acid (vitamin c) [facility] 2022-07-23 00:00 ascorbic acid (vitamin c) Walk[facility]In Clin [facility] 2022-07-26 00:00 ascorbic acid (vitamin c) Walk-In Clin ic [facility] 2022-07-28 00:00 ascorbic acid (vitamin c) Walk-In [facility] ic [facility] Care [facility] Services [facility] 2022-08-01 00:00 ascorbic acid (vitamin c) Walk-In [facility] ic [facility] Services [facility] 2022-08-05 00:00 ascorbic acid (vitamin c) Walk-In [facility] 2022-06-01 00:00 losartan-hydrochlorothiazide Walk-In [facility] Care [facility] Anc[facility] Services [facility] 2022-06-02 00:00 losartan-hydrochlorothiazide Walk-In [facility] 2022-06-17 00:00 losartan-hydrochlorothiazide Walk-In [facility] Care [facility] Anc[facility] Services [facility] 2022-06-18 00:00 losartan-hydrochlorothiazide Walk-In [facility] 2022-06-25 00:00 losartan-hydrochlorothiazide Walk-In [facility] 2022-06-29 00:00 losartan-hydrochlorothiazide Walk-In [facility] 2022-07-01 00:00 losartan-hydrochlorothiazide Walk-In [facility] 2022-07-23 00:00 losartan-hydrochlorothiazide Walk-In [facility] 2022-07-26 00:00 losartan-hydrochlorothiazide Walk-In [facility] 2022-07-28 00:00 losartan-hydrochlorothiazide Walk-In [facility] 2022-08-01 00:00 losartan-hydrochlorothiazide Walk-In [facility] 2022-08-05 00:00 losartan-hydrochlorothiazide Walk-In [facility] 2022-06-01 00:00 loratadine Walk[facility]In [facility] 2022-06-02 00:00 loratadine Walk[facility]In [facility] 2022-06-17 00:00 loratadine Walk[facility]In [facility] 2022-06-18 00:00 loratadine Walk[facility]In [facility] 2022-06-25 00:00 loratadine Walk[facility]In [facility] 2022-06-29 00:00 loratadine Walk[facility]In [facility] 2022-07-01 00:00 loratadine Walk[facility]In [facility] 2022-07-23 00:00 loratadine Walk[facility]In [facility] 2022-07-26 00:00 loratadine Walk[facility]In [facility] 2022-07-28 00:00 loratadine Walk[facility]In [facility] 2022-08-01 00:00 loratadine Walk[facility]In [facility] 2022-08-05 00:00 loratadine Walk[facility]In [facility] 2022-06-01 00:00 ascorbic acid (vitamin c) Walk[facility] 2022-06-02 00:00 ascorbic acid (vitamin c) Walk[facility] Clin [facility] 2022-06-17 00:00 ascorbic acid (vitamin c) Walk[facility] Clin [facility] 2022-06-18 00:00 ascorbic acid (vitamin c) Walk[facility] 2022-06-25 00:00 ascorbic acid (vitamin c) Walk[facility] 2022-06-29 00:00 ascorbic acid (vitamin c) [facility] 2022-07-01 00:00 ascorbic acid (vitamin c) Walk[facility] 2022-07-23 00:00 ascorbic acid (vitamin c) Walk[facility] 2022-07-26 00:00 ascorbic acid (vitamin c) Walk[facility] 2022-07-28 00:00 ascorbic acid (vitamin c) Walk-In Clin ic [facility] Care & Anc[facility] Services [facility] 2022-08-01 00:00 ascorbic acid (vitamin c) Walk-In Clin ic [facility] Anc[facility] Services [facility] 2022-08-05 00:00 ascorbic acid (vitamin c) Walk-In Clin ic [facility] Anc[facility] Services [facility] 2022-06-01 00:00 ascorbic acid (vitamin c) Walk-In Clin ic [facility] Anc[facility] Services [facility] 2022-06-02 00:00 ascorbic acid (vitamin c) Walk-In Clin ic [facility] Anc[facility] Services [facility] 2022-06-17 00:00 ascorbic acid (vitamin c) Walk-In Clin ic [facility] Services [facility] 2022-06-18 00:00 ascorbic acid (vitamin c) Walk-In Clin ic [facility] Services [facility] 2022-06-25 00:00 ascorbic acid (vitamin c) Walk-In Clin ic [facility] 2022-06-29 00:00 ascorbic acid (vitamin c) Walk-In Clin ic [facility] Services [facility] 2022-07-01 00:00 ascorbic acid (vitamin c) Walk-In Clin ic [facility] 2022-07-23 00:00 ascorbic acid (vitamin c) Walk-In Clin ic [facility] 2022-07-26 00:00 ascorbic acid (vitamin c) Walk-In Clin ic [facility] 2022-07-28 00:00 ascorbic acid (vitamin c) Walk-In Clin ic [facility] 2022-08-01 00:00 ascorbic acid (vitamin c) Walk-In Clin ic [facility] 2022-08-05 00:00 ascorbic acid (vitamin c) Walk-In Clin ic [facility] Services [facility] 2022-06-13 00:00 insulin glargine Walk-In Clinic [facility] 2022-07-28 00:00 insulin glargine Walk-In Clinic [facility] 2022-07-28 00:00 pen needle, diabetic Walk-In Clinic [facility] Care & Ancillary Services [facility] 2022-07-28 00:00 blood-glucose meter Walk-In Clinic [facility] Care & Ancillary Services [facility] 2022-08-05 00:00 blood-glucose meter Walk-In [facility] 2022-06-01 00:00 losartan-hydrochlorothiazide Walk-In [facility] Care [facility] Anc[facility] Services [facility] 2022-06-02 00:00 losartan-hydrochlorothiazide Walk-In [facility] Services [facility] 2022-06-17 00:00 losartan-hydrochlorothiazide Walk-In [facility] 2022-06-18 00:00 losartan-hydrochlorothiazide Walk-In [facility] 2022-06-25 00:00 losartan-hydrochlorothiazide Walk-In [facility] 2022-06-29 00:00 losartan-hydrochlorothiazide Walk-In [facility] 2022-07-01 00:00 losartan-hydrochlorothiazide Walk-In [facility] 2022-07-23 00:00 losartan-hydrochlorothiazide Walk-In [facility] 2022-07-26 00:00 losartan-hydrochlorothiazide Walk-In [facility] Services [facility] 2022-07-28 00:00 losartan-hydrochlorothiazide Walk-In [facility] 2022-08-01 00:00 losartan-hydrochlorothiazide Walk-In [facility] 2022-08-05 00:00 losartan-hydrochlorothiazide Walk-In [facility] 2022-07-28 00:00 blood-glucose meter Walk-In [facility] Care [facility] Anc[facility] Services [facility] 2022-08-05 00:00 blood-glucose meter Walk-In [facility] 2022-06-01 00:00 hydrochlorothiazide Walk-In [facility] 2022-06-02 00:00 hydrochlorothiazide Walk-In [facility] 2022-06-17 00:00 hydrochlorothiazide Walk-In [facility] 2022-06-18 00:00 hydrochlorothiazide Walk-In [facility] 2022-06-25 00:00 hydrochlorothiazide Walk-In [facility] 2022-06-29 00:00 hydrochlorothiazide Walk-In [facility] 2022-07-01 00:00 hydrochlorothiazide Walk-In [facility] 2022-07-23 00:00 hydrochlorothiazide Walk-In [facility] 2022-07-26 00:00 hydrochlorothiazide Walk-In [facility] 2022-07-28 00:00 hydrochlorothiazide Walk-In [facility] 2022-08-01 00:00 hydrochlorothiazide Walk-In [facility] 2022-08-05 00:00 hydrochlorothiazide Walk-In [facility] 2022-07-28 00:00 blood sugar diagnostic [facility] 2022-07-28 00:00 lancets Walk-In Clinic [facility] Care & Ancillary Services [facility] Problems date description facility 2022-06-29 00:00 Chronic kidney disease stage 4 Walk[facility]In [facility] 2022-06-29 00:00 Chronic kidney disease, Stage IV Walk- In Clinic [facility] Care & (severe) Ancillary Services [facility] 2022-06-29 00:00 Chronic kidney disease, stage 4 Walk-I n Clinic Primary Care & (severe) Ancillary Services [facility] Procedures date description facility 2022-06-29 00:00 Visit Code Hold Walk-In Clinic [facility] Care & Ancillary Services [facility] Results/Labs test date author facility value unit interpret ation Result panel 1 (unknown) (no date) (unknown) Walk-In (no value) (units (unk nown) Clinic Primary unknown) Care [facility] Result panel 2 (unknown) (no date) (unknown) Walk-In (no value) (units (unk nown) Clinic Primary unknown) Care [facility] Result panel 3 (unknown) (no date) (unknown) Walk-In (no value) (units (unk nown) Clinic Primary unknown) [facility] Result panel 4 (unknown) (no date) (unknown) Walk-In (no value) (units (unk nown) Clinic Primary unknown) [facility] Result panel 5 (unknown) (no date) (unknown) Walk-In (no value) (units (unk nown) Clinic Primary unknown) [facility] Result panel 6 (unknown) (no date) (unknown) Walk-In (no value) (units (unk nown) Clinic Primary unknown) [facility] Result panel 7 (unknown) (no date) (unknown) Walk-In (no value) (units (unk nown) Clinic Primary unknown) [facility] Result panel 8 (unknown) (no date) (unknown) Walk-In (no value) (units (unk nown) Clinic Primary unknown) [facility] Result panel 9 (unknown) (no date) (unknown) Walk-In (no value) (units (unk nown) Clinic Primary unknown) [facility] Result panel 10 (unknown) (no date) (unknown) Walk-In (no value) (units (unk nown) Clinic Primary unknown) [facility] Result panel 11 (unknown) (no date) (unknown) Walk-In (no value) (units (unk nown) Clinic Primary unknown) [facility] Result panel 12 (unknown) (no date) (unknown) Walk-In (no value) (units (unk nown) Clinic Primary unknown) [facility] Result panel 13 (unknown) (no date) (unknown) Walk-In (no value) (units (unk nown) Clinic Primary unknown) [facility] Result panel 14 (unknown) (no date) (unknown) Walk-In (no value) (units (unk nown) Clinic Primary unknown) [facility] Result panel 15 (unknown) (no date) (unknown) Walk-In (no value) (units (unk nown) Clinic Primary unknown) [facility] Result panel 16 (unknown) (no date) (unknown) Walk-In (no value) (units (unk nown) Clinic Primary unknown) [facility] Result panel 17 (unknown) (no date) (unknown) Walk-In (no value) (units (unk nown) Clinic Primary unknown) [facility] Result panel 18 (unknown) (no date) (unknown) Walk-In (no value) (units (unk nown) Clinic Primary unknown) [facility] Result panel 19 (unknown) (no date) (unknown) Walk-In (no value) (units (unk nown) Clinic Primary unknown) [facility] Result panel 20 (unknown) (no date) (unknown) Walk-In (no value) (units (unk nown) Clinic Primary unknown) [facility] Result panel 21 (unknown) (no date) (unknown) Walk-In (no value) (units (unk nown) Clinic Primary unknown) [facility] Result panel 22 (unknown) (no date) (unknown) Walk-In (no value) (units (unk nown) Clinic Primary unknown) [facility] Result panel 23 (unknown) (no date) (unknown) Walk-In (no value) (units (unk nown) Clinic Primary unknown) [facility] Result panel 24 (unknown) (no date) (unknown) Walk-In (no value) (units (unk nown) Clinic Primary unknown) [facility] Result panel 25 (unknown) (no date) (unknown) Walk-In (no value) (units (unk nown) Clinic Primary unknown) [facility] Result panel 26 (unknown) (no date) (unknown) Walk-In (no value) (units (unk nown) Clinic Primary unknown) [facility] Result panel 27 (unknown) (no date) (unknown) Walk-In (no value) (units (unk nown) Clinic Primary unknown) [facility] Result panel 28 (unknown) (no date) (unknown) Walk-In (no value) (units (unk nown) Clinic Primary unknown) [facility] Result panel 29 (unknown) (no date) (unknown) Walk-In (no value) (units (unk nown) Clinic Primary unknown) [facility] Result panel 30 (unknown) (no date) (unknown) Walk-In (no value) (units (unk nown) Clinic Primary unknown) [facility] Result panel 31 (unknown) (no date) (unknown) Walk-In (no value) (units (unk nown) Clinic Primary unknown) [facility] Result panel 32 (unknown) (no date) (unknown) Walk-In (no value) (units (unk nown) Clinic Primary unknown) [facility] Result panel 33 (unknown) (no date) (unknown) Walk-In (no value) (units (unk nown) Clinic Primary unknown) [facility] Result panel 34 (unknown) (no date) (unknown) Walk-In (no value) (units (unk nown) Clinic Primary unknown) [facility] Result panel 35 (unknown) (no date) (unknown) Walk-In (no value) (units (unk nown) Clinic Primary unknown) [facility] Result panel 36 (unknown) (no date) (unknown) Walk-In (no value) (units (unk nown) Clinic Primary unknown) [facility] Result panel 37 (unknown) (no date) (unknown) Walk-In (no value) (units (unk nown) Clinic Primary unknown) [facility] Result panel 38 (unknown) (no date) (unknown) Walk-In (no value) (units (unk nown) Clinic Primary unknown) [facility] Result panel 39 (unknown) (no date) (unknown) Walk-In (no value) (units (unk nown) Clinic Primary unknown) [facility] Result panel 40 (unknown) (no date) (unknown) Walk-In (no value) (units (unk nown) Clinic Primary unknown) [facility] Result panel 41 (unknown) (no date) (unknown) Walk-In (no value) (units (unk nown) Clinic Primary unknown) [facility] Result panel 42 (unknown) (no date) (unknown) Walk-In (no value) (units (unk nown) Clinic Primary unknown) [facility] Result panel 43 (unknown) (no date) (unknown) Walk-In (no value) (units (unk nown) Clinic Primary unknown) [facility] Result panel 44 (unknown) (no date) (unknown) Walk-In (no value) (units (unk nown) Clinic Primary unknown) [facility] Result panel 45 (unknown) (no date) (unknown) Walk-In (no value) (units (unk nown) Clinic Primary unknown) [facility] Result panel 46 (unknown) (no date) (unknown) Walk-In (no value) (units (unk nown) Clinic Primary unknown) [facility] Result panel 47 (unknown) (no date) (unknown) Walk-In (no value) (units (unk nown) Clinic Primary unknown) [facility] Result panel 48 (unknown) (no date) (unknown) Walk-In (no value) (units (unk nown) Clinic Primary unknown) [facility] Result panel 49 (unknown) (no date) (unknown) Walk-In (no value) (units (unk nown) Clinic Primary unknown) [facility] Result panel 50 (unknown) (no date) (unknown) Walk-In (no value) (units (unk nown) Clinic Primary unknown) [facility] Result panel 51 (unknown) (no date) (unknown) Walk-In (no value) (units (unk nown) Clinic Primary unknown) [facility] Result panel 52 (unknown) (no date) (unknown) Walk-In (no value) (units (unk nown) Clinic Primary unknown) [facility] Result panel 53 (unknown) (no date) (unknown) Walk-In (no value) (units (unk nown) Clinic Primary unknown) [facility] Result panel 54 (unknown) (no date) (unknown) Walk-In (no value) (units (unk nown) Clinic Primary unknown) [facility] Result panel 55 (unknown) (no date) (unknown) Walk-In (no value) (units (unk nown) Clinic Primary unknown) [facility] Result panel 56 (unknown) (no date) (unknown) Walk-In (no value) (units (unk nown) Clinic Primary unknown) [facility] Result panel 57 (unknown) (no date) (unknown) Walk-In (no value) (units (unk nown) Clinic Primary unknown) [facility] Result panel 58 (unknown) (no date) (unknown) Walk-In (no value) (units (unk nown) Clinic Primary unknown) [facility] Result panel 59 (unknown) (no date) (unknown) Walk-In (no value) (units (unk nown) Clinic Primary unknown) [facility] Result panel 60 (unknown) (no date) (unknown) Walk-In (no value) (units (unk nown) Clinic Primary unknown) [facility] Result panel 61 (unknown) (no date) (unknown) Walk-In (no value) (units (unk nown) Clinic Primary unknown) [facility] Result panel 62 (unknown) (no date) (unknown) Walk-In (no value) (units (unk nown) Clinic Primary unknown) [facility] Result panel 63 (unknown) (no date) (unknown) Walk-In (no value) (units (unk nown) Clinic Primary unknown) [facility] Result panel 64 (unknown) (no date) (unknown) Walk-In (no value) (units (unk nown) Clinic Primary unknown) [facility] Result panel 65 (unknown) (no date) (unknown) Walk-In (no value) (units (unk nown) Clinic Primary unknown) [facility] Result panel 66 (unknown) (no date) (unknown) Walk-In (no value) (units (unk nown) Clinic Primary unknown) [facility] Result panel 67 (unknown) (no date) (unknown) Walk-In (no value) (units (unk nown) Clinic Primary unknown) [facility] Result panel 68 (unknown) (no date) (unknown) Walk-In (no value) (units (unk nown) Clinic Primary unknown) [facility] Result panel 69 (unknown) (no date) (unknown) Walk-In (no value) (units (unk nown) Clinic Primary unknown) [facility] Result panel 70 (unknown) (no date) (unknown) Walk-In (no value) (units (unk nown) Clinic Primary unknown) [facility] Result panel 71 (unknown) (no date) (unknown) Walk-In (no value) (units (unk nown) Clinic Primary unknown) [facility] Result panel 72 (unknown) (no date) (unknown) Walk-In (no value) (units (unk nown) Clinic Primary unknown) [facility] Result panel 73 (unknown) (no date) (unknown) Walk-In (no value) (units (unk nown) Clinic Primary unknown) [facility] Result panel 74 (unknown) (no date) (unknown) Walk-In (no value) (units (unk nown) Clinic Primary unknown) [facility] Result panel 75 (unknown) (no date) (unknown) Walk-In (no value) (units (unk nown) Clinic Primary unknown) [facility] Result panel 76 (unknown) (no date) (unknown) Walk-In (no value) (units (unk nown) Clinic Primary unknown) [facility] Result panel 77 (unknown) (no date) (unknown) Walk-In (no value) (units (unk nown) Clinic Primary unknown) [facility] Result panel 78 (unknown) (no date) (unknown) Walk-In (no value) (units (unk nown) Clinic Primary unknown) [facility] Result panel 79 (unknown) (no date) (unknown) Walk-In (no value) (units (unk nown) Clinic Primary unknown) [facility] Result panel 80 (unknown) (no date) (unknown) Walk-In (no value) (units (unk nown) Clinic Primary unknown) [facility] Result panel 81 (unknown) (no date) (unknown) Walk-In (no value) (units (unk nown) Clinic Primary unknown) [facility] Result panel 82 (unknown) (no date) (unknown) Walk-In (no value) (units (unk nown) Clinic Primary unknown) [facility] Result panel 83 (unknown) (no date) (unknown) Walk-In (no value) (units (unk nown) Clinic Primary unknown) [facility] Result panel 84 (unknown) (no date) (unknown) Walk-In (no value) (units (unk nown) Clinic Primary unknown) [facility] Result panel 85 (unknown) (no date) (unknown) Walk-In (no value) (units (unk nown) Clinic Primary unknown) [facility] Result panel 86 (unknown) (no date) (unknown) Walk-In (no value) (units (unk nown) Clinic Primary unknown) [facility] Result panel 87 (unknown) (no date) (unknown) Walk-In (no value) (units (unk nown) Clinic Primary unknown) [facility] Result panel 88 (unknown) (no date) (unknown) Walk-In (no value) (units (unk nown) Clinic Primary unknown) [facility] Result panel 89 (unknown) (no date) (unknown) Walk-In (no value) (units (unk nown) Clinic Primary unknown) [facility] Result panel 90 (unknown) (no date) (unknown) Walk-In (no value) (units (unk nown) Clinic Primary unknown) [facility] Result panel 91 (unknown) (no date) (unknown) Walk-In (no [facility] Result panel 92 (unknown) (no date) (unknown) Walk-In (no value) [facility] Result panel 93 (unknown) (no date) (unknown) [facility]-In (no value) [facility] Result panel 94 (unknown) (no date) (unknown) [facility] (no value) [facility] Result panel 95 (unknown) (no date) (unknown) [facility] (no value) [facility] Result panel 96 (unknown) (no date) (unknown) [facility] (no value) [facility] Result panel 97 (unknown) (no date) (unknown) [facility] (no value) [facility] Result panel 98 (unknown) (no date) (unknown) [facility] (no value) [facility] Result panel 99 (unknown) (no date) (unknown) [facility]-In (no value) [facility] Result panel 100 (unknown) (no date) (unknown) [facility] (no value) [facility] Result panel 101 (unknown) (no date) (unknown) [facility]-In (no value) [facility] Result panel 102 (unknown) (no date) (unknown) [facility]-In (no value) [facility] Result panel 103 (unknown) (no date) (unknown) [facility] (no value) [facility] Result panel 104 (unknown) (no date) (unknown) [facility] (no value) [facility] Result panel 105 (unknown) (no date) (unknown) [facility] (no value) [facility] Result panel 106 (unknown) (no date) (unknown) [facility] (no value) [facility] Result panel 107 (unknown) (no date) (unknown) [facility] (no value) [facility] Result panel 108 (unknown) (no date) (unknown) [facility] (no value) [facility] Result panel 109 (unknown) (no date) (unknown) [facility] (no value) [facility] Result panel 110 (unknown) (no date) (unknown) [facility] (no value) [facility] Result panel 111 (unknown) (no date) (unknown) [facility] (no value) [facility] Result panel 112 (unknown) (no date) (unknown) [facility] (no value) [facility] Result panel 113 (unknown) (no date) (unknown) [facility] (no value) [facility] Result panel 114 (unknown) (no date) (unknown) [facility] (no value) [facility] Result panel 115 (unknown) (no date) (unknown) [facility] (no value) [facility] Result panel 116 (unknown) (no date) (unknown) [facility] (no value) [facility] Result panel 117 (unknown) (no date) (unknown) [facility] (no value) [facility] Result panel 118 (unknown) (no date) (unknown) [facility] (no value) [facility] Result panel 119 (unknown) (no date) (unknown) [facility] (no value) [facility] Result panel 120 (unknown) (no date) (unknown) [facility] (no value) [facility] Result panel 121 (unknown) (no date) (unknown) [facility] (no value) [facility] Result panel 122 (unknown) (no date) (unknown) [facility]-In (no value) [facility] Result panel 123 (unknown) (no date) (unknown) [facility] (no value) [facility] Result panel 124 (unknown) (no date) (unknown) [facility] (no value) [facility] Result panel 125 (unknown) (no date) (unknown) [facility] (no value) [facility] Result panel 126 (unknown) (no date) (unknown) [facility] (no value) [facility] Result panel 127 (unknown) (no date) (unknown) [facility]-In (no value) [facility] Result panel 128 (unknown) (no date) (unknown) [facility] (no value) [facility] Result panel 129 (unknown) (no date) (unknown) [facility] (no value) [facility] Result panel 130 (unknown) (no date) (unknown) [facility] (no value) [facility] Result panel 131 (unknown) (no date) (unknown) [facility] (no value) [facility] Result panel 132 (unknown) (no date) (unknown) [facility] (no value) [facility] Result panel 133 (unknown) (no date) (unknown) [facility] (no value) [facility] Result panel 134 (unknown) (no date) (unknown) [facility] (no value) [facility] Result panel 135 (unknown) (no date) (unknown) [facility] (no value) [facility] Result panel 136 (unknown) (no date) (unknown) [facility]-In (no value) [facility] Result panel 137 (unknown) (no date) (unknown) [facility] (no value) [facility] Result panel 138 (unknown) (no date) (unknown) [facility] (no value) [facility] Result panel 139 (unknown) (no date) (unknown) [facility] (no value) [facility] Result panel 140 (unknown) (no date) (unknown) [facility] (no value) [facility] Result panel 141 (unknown) (no date) (unknown) [facility] (no value) [facility] Result panel 142 (unknown) (no date) (unknown) [facility] (no value) [facility] Result panel 143 (unknown) (no date) (unknown) Walk-In (no value) [facility] Result panel 144 (unknown) (no date) (unknown) Walk-In (no value) [facility] Result panel 145 (unknown) (no date) (unknown) [facility] (no value) [facility] Result panel 146 (unknown) (no date) (unknown) [facility]-In (no value) [facility] Result panel 147 (unknown) (no date) (unknown) [facility]-In (no value) [facility] Result panel 148 (unknown) (no date) (unknown) [facility] (no value) [facility] Result panel 149 (unknown) (no date) (unknown) [facility] (no value) [facility] Result panel 150 (unknown) (no date) (unknown) [facility] (no value) [facility] Result panel 151 (unknown) (no date) (unknown) [facility] (no value) [facility] Result panel 152 (unknown) (no date) (unknown) [facility] (no value) [facility] Result panel 153 (unknown) (no date) (unknown) [facility]-In (no value) [facility] Result panel 154 (unknown) (no date) (unknown) [facility] (no value) [facility] Result panel 155 (unknown) (no date) (unknown) [facility] (no value) [facility] Result panel 156 (unknown) (no date) (unknown) [facility] (no value) [facility] Result panel 157 (unknown) (no date) (unknown) [facility]-In (no value) [facility] Result panel 158 (unknown) (no date) (unknown) [facility]-In (no value) [facility] Result panel 159 (unknown) (no date) (unknown) [facility] (no value) [facility] Result panel 160 (unknown) (no date) (unknown) [facility] (no value) [facility] Result panel 161 (unknown) (no date) (unknown) [facility] (no value) [facility] Result panel 162 (unknown) (no date) (unknown) [facility] (no value) [facility] Result panel 163 (unknown) (no date) (unknown) [facility] (no value) [facility] Result panel 164 (unknown) (no date) (unknown) [facility] (no value) [facility] Result panel 165 (unknown) (no date) (unknown) [facility] (no value) [facility] Result panel 166 (unknown) (no date) (unknown) [facility] (no value) [facility] Result panel 167 (unknown) (no date) (unknown) [facility] (no value) [facility] Result panel 168 (unknown) (no date) (unknown) [facility] (no value) [facility] Result panel 169 (unknown) (no date) (unknown) [facility] (no value) [facility] Result panel 170 (unknown) (no date) (unknown) [facility] (no value) [facility] Result panel 171 (unknown) (no date) (unknown) [facility] (no value) [facility] Result panel 172 (unknown) (no date) (unknown) Walk-In (no value) [facility] Result panel 173 (unknown) (no date) (unknown) [facility] (no value) [facility] Result panel 174 (unknown) (no date) (unknown) [facility]-In (no value) [facility] Result panel 175 (unknown) (no date) (unknown) [facility] (no value) [facility] Result panel 176 (unknown) (no date) (unknown) [facility] (no value) [facility] Result panel 177 (unknown) (no date) (unknown) [facility] (no value) [facility] Result panel 178 (unknown) (no date) (unknown) [facility] (no value) [facility] Result panel 179 (unknown) (no date) (unknown) [facility] (no value) [facility] Result panel 180 (unknown) (no date) (unknown) [facility] (no value) [facility] Result panel 181 (unknown) (no date) (unknown) [facility] (no value) [facility] Result panel 182 (unknown) (no date) (unknown) [facility] (no value) [facility] Result panel 183 (unknown) (no date) (unknown) [facility] (no value) [facility] Result panel 184 (unknown) (no date) (unknown) [facility] (no value) [facility] Result panel 185 (unknown) (no date) (unknown) [facility] (no value) [facility] Result panel 186 (unknown) (no date) (unknown) [facility] (no value) [facility] Result panel 187 (unknown) (no date) (unknown) [facility] (no value) [facility] Result panel 188 (unknown) (no date) (unknown) [facility] (no value) [facility] Result panel 189 (unknown) (no date) (unknown) [facility] (no value) [facility] Result panel 190 (unknown) (no date) (unknown) [facility] (no value) [facility] Result panel 191 (unknown) (no date) (unknown) [facility] (no value) [facility] Result panel 192 (unknown) (no date) (unknown) [facility] (no value) [facility] Result panel 193 (unknown) (no date) (unknown) [facility] (no value) [facility] Result panel 194 (unknown) (no date) (unknown) [facility] (no value) [facility] Result panel 195 (unknown) (no date) (unknown) [facility] (no value) [facility] Result panel 196 (unknown) (no date) (unknown) [facility] (no value) [facility] Result panel 197 (unknown) (no date) (unknown) [facility] (no value) [facility] Result panel 198 (unknown) (no date) (unknown) [facility] (no value) [facility] Result panel 199 (unknown) (no date) (unknown) [facility] (no value) [facility] Result panel 200 (unknown) (no date) (unknown) [facility] (no value) [facility] Result panel 201 (unknown) (no date) (unknown) [facility] (no value) [facility] Result panel 202 (unknown) (no date) (unknown) [facility] (no value) [facility] Result panel 203 (unknown) (no date) (unknown) [facility] (no value) [facility] Result panel 204 (unknown) (no date) (unknown) [facility] (no value) [facility] Result panel 205 (unknown) (no date) (unknown) [facility] (no value) [facility] Result panel 206 (unknown) (no date) (unknown) [facility] (no value) [facility] Result panel 207 (unknown) (no date) (unknown) [facility] (no value) [facility] Result panel 208 (unknown) (no date) (unknown) [facility] (no value) [facility] Result panel 209 (unknown) (no date) (unknown) [facility] (no value) [facility] Result panel 210 (unknown) (no date) (unknown) [facility] (no value) [facility] Result panel 211 (unknown) (no date) (unknown) [facility] (no value) [facility] Result panel 212 (unknown) (no date) (unknown) [facility] (no value) [facility] Result panel 213 (unknown) (no date) (unknown) [facility] (no value) [facility] Result panel 214 (unknown) (no date) (unknown) [facility] (no value) [facility] Result panel 215 (unknown) (no date) (unknown) [facility] (no value) [facility] Result panel 216 (unknown) (no date) (unknown) Walk-In (no value) [facility] Result panel 217 (unknown) (no date) (unknown) Walk-In (no value) [facility] Result panel 218 (unknown) (no date) (unknown) Walk-In (no value) [facility] Result panel 219 (unknown) (no date) (unknown) [facility] (no value) [facility] Result panel 220 (unknown) (no date) (unknown) Walk-[facility] (no value) [facility] Result panel 221 (unknown) (no date) (unknown) [facility] (no value) [facility] Result panel 222 (unknown) (no date) (unknown) [facility] (no value) [facility] Result panel 223 (unknown) (no date) (unknown) [facility] (no value) [facility] Result panel 224 (unknown) (no date) (unknown) [facility] (no value) [facility] Result panel 225 (unknown) (no date) (unknown) [facility] (no value) [facility] Result panel 226 (unknown) (no date) (unknown) [facility] (no value) [facility] Result panel 227 (unknown) (no date) (unknown) [facility] (no value) [facility] Result panel 228 (unknown) (no date) (unknown) [facility] (no value) [facility] Result panel 229 (unknown) (no date) (unknown) [facility] (no value) [facility] Result panel 230 (unknown) (no date) (unknown) [facility] (no value) [facility] Result panel 231 (unknown) (no date) (unknown) [facility] (no value) [facility] Result panel 232 (unknown) (no date) (unknown) [facility] (no value) [facility] Result panel 233 (unknown) (no date) (unknown) [facility] (no value) [facility] Result panel 234 (unknown) (no date) (unknown) [facility] (no value) [facility] Result panel 235 (unknown) (no date) (unknown) [facility] (no value) [facility] Result panel 236 (unknown) (no date) (unknown) [facility] (no value) [facility] Result panel 237 (unknown) (no date) (unknown) [facility] (no value) [facility] Result panel 238 (unknown) (no date) (unknown) [facility] (no value) [facility] Result panel 239 (unknown) (no date) (unknown) [facility] (no value) [facility] Result panel 240 (unknown) (no date) (unknown) [facility] (no value) [facility] Result panel 241 (unknown) (no date) (unknown) [facility] (no value) [facility] Result panel 242 (unknown) (no date) (unknown) [facility] (no value) [facility] Result panel 243 (unknown) (no date) (unknown) [facility] (no value) [facility] Result panel 244 (unknown) (no date) (unknown) [facility] (no value) [facility] Result panel 245 (unknown) (no date) (unknown) [facility] (no value) [facility] Result panel 246 (unknown) (no date) (unknown) [facility]-In (no value) [facility] Result panel 247 (unknown) (no date) (unknown) [facility] (no value) [facility] Result panel 248 (unknown) (no date) (unknown) [facility] (no value) [facility] Result panel 249 (unknown) (no date) (unknown) [facility] (no value) [facility] Result panel 250 (unknown) (no date) (unknown) [facility]-In (no value) [facility] Result panel 251 (unknown) (no date) (unknown) [facility]-In (no value) [facility] Result panel 252 (unknown) (no date) (unknown) [facility]-In (no value) [facility] Result panel 253 (unknown) (no date) (unknown) [facility] (no value) [facility] Result panel 254 (unknown) (no date) (unknown) [facility]-In (no value) [facility] Result panel 255 (unknown) (no date) (unknown) [facility] (no value) [facility] Result panel 256 (unknown) (no date) (unknown) [facility]-In (no value) [facility] Result panel 257 (unknown) (no date) (unknown) [facility]-In (no value) [facility] Result panel 258 (unknown) (no date) (unknown) Walk-In (no value) [facility] Result panel 259 (unknown) (no date) (unknown) Walk-In (no value) [facility] Result panel 260 (unknown) (no date) (unknown) Walk-In (no value) [facility] Result panel 261 (unknown) (no date) (unknown) Walk-In (no value) [facility] Result panel 262 (unknown) (no date) (unknown) Walk-In (no value) [facility] Result panel 263 (unknown) (no date) (unknown) [facility]-In (no value) [facility] Result panel 264 (unknown) (no date) (unknown) [facility]-In (no value) [facility] Result panel 265 (unknown) (no date) (unknown) [facility]-In (no value) [facility] Result panel 266 (unknown) (no date) (unknown) [facility] (no value) [facility] Result panel 267 (unknown) (no date) (unknown) [facility] (no value) [facility] Result panel 268 (unknown) (no date) (unknown) Walk-In (no value) [facility] Result panel 269 (unknown) (no date) (unknown) [facility]-In (no value) [facility] Result panel 270 (unknown) (no date) (unknown) [facility]-In (no value) [facility] Result panel 271 (unknown) (no date) (unknown) Walk-In (no value) [facility] Result panel 272 (unknown) (no date) (unknown) [facility] (no value) [facility] Result panel 273 (unknown) (no date) (unknown) [facility] (no value) [facility] Result panel 274 (unknown) (no date) (unknown) [facility] (no value) [facility] Result panel 275 (unknown) (no date) (unknown) Walk-In (no value) [facility] Result panel 276 (unknown) (no date) (unknown) [facility] (no value) [facility] Result panel 277 (unknown) (no date) (unknown) [facility] (no value) [facility] Result panel 278 (unknown) (no date) (unknown) Walk-In (no value) [facility] Result panel 279 (unknown) (no date) (unknown) [facility] (no value) [facility] Result panel 280 (unknown) (no date) (unknown) [facility] (no value) [facility] Result panel 281 (unknown) (no date) (unknown) Walk-In (no value) [facility] Result panel 282 (unknown) (no date) (unknown) Walk-In (no value) [facility] Result panel 283 (unknown) (no date) (unknown) [facility] (no value) [facility] Result panel 284 (unknown) (no date) (unknown) Walk-In (no value) [facility] Result panel 285 (unknown) (no date) (unknown) [facility] (no value) [facility] Result panel 286 (unknown) (no date) (unknown) [facility] (no value) [facility] Result panel 287 (unknown) (no date) (unknown) [facility] (no value) [facility] Result panel 288 (unknown) (no date) (unknown) [facility] (no value) [facility] Result panel 289 (unknown) (no date) (unknown) [facility] (no value) [facility] Result panel 290 (unknown) (no date) (unknown) [facility]-In (no value) [facility] Result panel 291 (unknown) (no date) (unknown) Walk-In (no value) [facility] Result panel 292 (unknown) (no date) (unknown) [facility] (no value) [facility] Result panel 293 (unknown) (no date) (unknown) [facility]-In (no value) [facility] Result panel 294 (unknown) (no date) (unknown) Walk-In (no value) [facility] Result panel 295 (unknown) (no date) (unknown) [facility] (no value) [facility] Result panel 296 (unknown) (no date) (unknown) Walk-In (no value) [facility] Result panel 297 (unknown) (no date) (unknown) Walk-In (no value) [facility] Result panel 298 (unknown) (no date) (unknown) Walk-In (no value) [facility] Result panel 299 (unknown) (no date) (unknown) Walk-In (no value) [facility] Result panel 300 (unknown) (no date) (unknown) Walk-In (no value) [facility] Result panel 301 (unknown) (no date) (unknown) [facility]-In (no value) [facility] Result panel 302 (unknown) (no date) (unknown) [facility]-In (no value) [facility] Result panel 303 (unknown) (no date) (unknown) [facility]-In (no value) [facility] Result panel 304 (unknown) (no date) (unknown) [facility] (no value) [facility] Result panel 305 (unknown) (no date) (unknown) Walk-In (no value) [facility] Result panel 306 (unknown) (no date) (unknown) [facility]-In (no value) [facility] Result panel 307 (unknown) (no date) (unknown) Walk-In (no value) [facility] Result panel 308 (unknown) (no date) (unknown) Walk-In (no value) [facility] Result panel 309 (unknown) (no date) (unknown) [facility] (no value) [facility] Result panel 310 (unknown) (no date) (unknown) Walk-In (no value) [facility] Result panel 311 (unknown) (no date) (unknown) Walk-[facility] (no value) [facility] Result panel 312 (unknown) (no date) (unknown) Walk-In (no value) [facility] Result panel 313 (unknown) (no date) (unknown) Walk-In (no value) [facility] Result panel 314 (unknown) (no date) (unknown) Walk-[facility] (no value) [facility] Result panel 315 (unknown) (no date) (unknown) Walk-In (no value) [facility] Result panel 316 (unknown) (no date) (unknown) Walk-In (no value) [facility] Result panel 317 (unknown) (no date) (unknown) Walk-In (no value) [facility] Result panel 318 (unknown) (no date) (unknown) [facility] (no value) [facility] Result panel 319 (unknown) (no date) (unknown) [facility] (no value) [facility] Result panel 320 (unknown) (no date) (unknown) [facility] (no value) [facility] Result panel 321 (unknown) (no date) (unknown) Walk-[facility] (no value) [facility] Result panel 322 (unknown) (no date) (unknown) [facility] (no value) [facility] Result panel 323 (unknown) (no date) (unknown) [facility] (no value) [facility] Result panel 324 (unknown) (no date) (unknown) [facility] (no value) [facility] Result panel 325 (unknown) (no date) (unknown) [facility] (no value) [facility] Result panel 326 (unknown) (no date) (unknown) Walk-In (no value) [facility] Result panel 327 (unknown) (no date) (unknown) Walk-[facility] (no value) [facility] Result panel 328 (unknown) (no date) (unknown) [facility] (no value) [facility] Result panel 329 (unknown) (no date) (unknown) [facility] (no value) [facility] Result panel 330 (unknown) (no date) (unknown) [facility] (no value) [facility] Result panel 331 (unknown) (no date) (unknown) [facility]-In (no value) [facility] Result panel 332 (unknown) (no date) (unknown) [facility] (no value) [facility] Result panel 333 (unknown) (no date) (unknown) [facility] (no value) [facility] Result panel 334 (unknown) (no date) (unknown) [facility] (no value) [facility] Result panel 335 (unknown) (no date) (unknown) Walk-In (no value) [facility] Result panel 336 (unknown) (no date) (unknown) Walk-[facility] (no value) [facility] Result panel 337 (unknown) (no date) (unknown) [facility]-In (no value) [facility] Result panel 338 (unknown) (no date) (unknown) Walk-[facility] (no value) [facility] Result panel 339 (unknown) (no date) (unknown) [facility] (no value) [facility] Result panel 340 (unknown) (no date) (unknown) Walk-In (no value) [facility] Result panel 341 (unknown) (no date) (unknown) Walk-In (no value) [facility] Result panel 342 (unknown) (no date) (unknown) Walk-In (no value) [facility] Result panel 343 (unknown) (no date) (unknown) Walk-In (no value) [facility] Result panel 344 (unknown) (no date) (unknown) Walk-In (no value) [facility] Result panel 345 (unknown) (no date) (unknown) Walk-[facility] (no value) [facility] Result panel 346 (unknown) (no date) (unknown) [facility] (no value) [facility] Result panel 347 (unknown) (no date) (unknown) Walk-[facility] (no value) [facility] Result panel 348 (unknown) (no date) (unknown) [facility] (no value) [facility] Result panel 349 (unknown) (no date) (unknown) [facility] (no value) [facility] Result panel 350 (unknown) (no date) (unknown) Walk-In (no value) [facility] Result panel 351 (unknown) (no date) (unknown) [facility] (no value) [facility] Result panel 352 (unknown) (no date) (unknown) Walk-[facility] (no value) [facility] Result panel 353 (unknown) (no date) (unknown) Walk-[facility] (no value) [facility] Result panel 354 (unknown) (no date) (unknown) Walk-[facility] (no value) [facility] Result panel 355 (unknown) (no date) (unknown) Walk-[facility] (no value) [facility] Result panel 356 (unknown) (no date) (unknown) Walk-[facility] (no value) [facility] Result panel 357 (unknown) (no date) (unknown) Walk-In (no value) [facility] Result panel 358 (unknown) (no date) (unknown) Walk-[facility] (no value) [facility] Result panel 359 (unknown) (no date) (unknown) [facility]-In (no value) [facility] Result panel 360 (unknown) (no date) (unknown) [facility]-In (no value) [facility] Result panel 361 (unknown) (no date) (unknown) [facility] (no value) [facility] Result panel 362 (unknown) (no date) (unknown) [facility] (no value) [facility] Result panel 363 (unknown) (no date) (unknown) Walk-In (no value) [facility] Result panel 364 (unknown) (no date) (unknown) Walk-[facility] (no value) [facility] Result panel 365 (unknown) (no date) (unknown) [facility] (no value) [facility] Result panel 366 (unknown) (no date) (unknown) [facility] (no value) [facility] Result panel 367 (unknown) (no date) (unknown) [facility] (no value) [facility] Result panel 368 (unknown) (no date) (unknown) Walk-In (no value) [facility] Result panel 369 (unknown) (no date) (unknown) Walk-In (no value) [facility] Result panel 370 (unknown) (no date) (unknown) Walk-In (no value) [facility] Result panel 371 (unknown) (no date) (unknown) Walk-In (no value) [facility] Result panel 372 (unknown) (no date) (unknown) [facility] (no value) [facility] Result panel 373 (unknown) (no date) (unknown) [facility] (no value) [facility] Result panel 374 (unknown) (no date) (unknown) [facility] (no value) [facility] Result panel 375 (unknown) (no date) (unknown) Walk-In (no value) [facility] Result panel 376 (unknown) (no date) (unknown) Walk-In (no value) [facility] Result panel 377 (unknown) (no date) (unknown) [facility] (no value) [facility] Result panel 378 (unknown) (no date) (unknown) Walk-[facility] (no value) [facility] Result panel 379 (unknown) (no date) (unknown) [facility]-In (no value) [facility] Result panel 380 (unknown) (no date) (unknown) [facility] (no value) [facility] Result panel 381 (unknown) (no date) (unknown) [facility] (no value) [facility] Result panel 382 (unknown) (no date) (unknown) Walk-[facility] (no value) [facility] Result panel 383 (unknown) (no date) (unknown) Walk-[facility] (no value) [facility] Result panel 384 (unknown) (no date) (unknown) Walk-In (no value) [facility] Result panel 385 (unknown) (no date) (unknown) Walk-[facility] (no value) [facility] Result panel 386 (unknown) (no date) (unknown) Walk-In (no value) [facility] Result panel 387 (unknown) (no date) (unknown) Walk-[facility] (no value) [facility] Result panel 388 (unknown) (no date) (unknown) Walk-In (no value) [facility] Result panel 389 (unknown) (no date) (unknown) Walk-In (no value) [facility] Result panel 390 (unknown) (no date) (unknown) Walk-[facility] (no value) [facility] Result panel 391 (unknown) (no date) (unknown) [facility] (no value) [facility] Result panel 392 (unknown) (no date) (unknown) [facility] (no value) [facility] Result panel 393 (unknown) (no date) (unknown) [facility] (no value) [facility] Result panel 394 (unknown) (no date) (unknown) [facility] (no value) [facility] Result panel 395 (unknown) (no date) (unknown) [facility] (no value) [facility] Result panel 396 (unknown) (no date) (unknown) Walk-[facility] (no value) [facility] Result panel 397 (unknown) (no date) (unknown) Walk-[facility] (no value) [facility] Result panel 398 (unknown) (no date) (unknown) Walk-[facility] (no value) [facility] Result panel 399 (unknown) (no date) (unknown) Walk-[facility] (no value) [facility] Result panel 400 (unknown) (no date) (unknown) Walk-In (no value) [facility] Result panel 401 (unknown) (no date) (unknown) Walk-[facility] (no value) [facility] Result panel 402 (unknown) (no date) (unknown) [facility] (no value) [facility] Result panel 403 (unknown) (no date) (unknown) Walk-[facility] (no value) [facility] Result panel 404 (unknown) (no date) (unknown) Walk-In (no value) [facility] Result panel 405 (unknown) (no date) (unknown) Walk-In (no value) [facility] Result panel 406 (unknown) (no date) (unknown) Walk-[facility] (no value) [facility] Result panel 407 (unknown) (no date) (unknown) Walk-[facility] (no value) [facility] Result panel 408 (unknown) (no date) (unknown) Walk-[facility] (no value) [facility] Result panel 409 (unknown) (no date) (unknown) [facility] (no value) [facility] Result panel 410 (unknown) (no date) (unknown) Walk-In (no value) [facility] Result panel 411 (unknown) (no date) (unknown) [facility] (no value) [facility] Result panel 412 (unknown) (no date) (unknown) [facility] (no value) [facility] Result panel 413 (unknown) (no date) (unknown) [facility] (no value) [facility] Result panel 414 (unknown) (no date) (unknown) Walk-In (no value) [facility] Result panel 415 (unknown) (no date) (unknown) [facility] (no value) [facility] Result panel 416 (unknown) (no date) (unknown) [facility] (no value) [facility] Result panel 417 (unknown) (no date) (unknown) [facility] (no value) [facility] Result panel 418 (unknown) (no date) (unknown) [facility] (no value) [facility] Result panel 419 (unknown) (no date) (unknown) Walk-In (no value) [facility] Result panel 420 (unknown) (no date) (unknown) Walk-In (no value) [facility] Result panel 421 (unknown) (no date) (unknown) [facility] (no value) [facility] Result panel 422 (unknown) (no date) (unknown) [facility] (no value) [facility] Result panel 423 (unknown) (no date) (unknown) [facility] (no value) [facility] Result panel 424 (unknown) (no date) (unknown) Walk-In (no value) [facility] Result panel 425 (unknown) (no date) (unknown) Walk-[facility] (no value) [facility] Result panel 426 (unknown) (no date) (unknown) Walk-[facility] (no value) [facility] Result panel 427 (unknown) (no date) (unknown) Walk-In (no value) [facility] Result panel 428 (unknown) (no date) (unknown) Walk-In (no value) [facility] Result panel 429 (unknown) (no date) (unknown) Walk-In (no value) (units ([facility] nown) [facility] Primary unknown) [facility] Result panel 430 (unknown) (no date) (unknown) Walk-In (no value) (units ([facility] nown) [facility] Primary unknown) [facility] Result panel 431 (unknown) (no date) (unknown) Walk-In (no value) (units ([facility] nown) Clinic Primary unknown) [facility] Result panel 432 (unknown) (no date) (unknown) Walk-In (no value) (units ([facility] nown) Clinic Primary unknown) [facility] Result panel 433 (unknown) (no date) (unknown) Walk-In (no value) (units ([facility] nown) Clinic Primary unknown) [facility] Result panel 434 (unknown) (no date) (unknown) Walk-In (no value) (units ([facility] nown) Clinic Primary unknown) [facility] Result panel 435 (unknown) (no date) (unknown) Walk-In (no value) (units ([facility] nown) [facility] Primary unknown) [facility] Result panel 436 (unknown) (no date) (unknown) Walk-In (no value) (units ([facility] nown) [facility] Primary unknown) [facility] Result panel 437 (unknown) (no date) (unknown) Walk-In (no value) (units ([facility] nown) Clinic Primary unknown) [facility] Result panel 438 (unknown) (no date) (unknown) Walk-In (no value) (units ([facility] nown) Clinic Primary unknown) [facility] Result panel 439 (unknown) (no date) (unknown) Walk-In (no value) (units ([facility] nown) Clinic Primary unknown) [facility] Result panel 440 (unknown) (no date) (unknown) Walk-In (no value) (units ([facility] nown) Clinic Primary unknown) [facility] Result panel 441 (unknown) (no date) (unknown) Walk-In (no value) (units ([facility] nown) [facility] Primary unknown) [facility] Result panel 442 (unknown) (no date) (unknown) Walk-In (no value) (units ([facility] nown) [facility] Primary unknown) [facility] Social History date description facility 2022-06-29 00:00 Former smoker Walk[facility] Vital Signs date measurement value units 2022-06-29 00:00 BMI 31.12 kg/m2 2022-06-29 00:00 BP_diastolic 78 mmHg 2022-06-29 00:00 BP_systolic 177 mmHg 2022-06-29 00:00 heart_rate 78 /min 2022-06-29 00:00 height_metric 175.26 cm 2022-06-29 00:00 height_standard 69 in 2022-06-29 00:00 respiration_rate 14 /min 2022-06-29 00:00 temperature_metric 36.39 C 2022-06-29 00:00 temperature_standard 97.5 F 2022-06-29 00:00 weight_metric 95.25 kg 2022-06-29 00:00 weight_standard 210 lb
[2022-08-07] MEDS ORDERED: SODIUM CHLORIDE 0.9% 1,000 ML IV STA (09:58)
--- NOTE | 2022-08-07 10:00 | ED Physician Documentation ---
PD HPI SYNCOPE - Stated complaint Stated Complaint: NEAR SYNCOPE/COVID+ - History obtained from History obtained from: Patient, EMS, Caregiver - History of Present Illness Witnessed: Witnessed Timing - onset: How many hours ago (1), Today, How many days ago (The patient has had general malaise with cough and weakness for 4 to 5 days. He tested positive for COVID at the assisted living that which he lives 3 days ago.) Duration: Minutes Preceding symptoms: Dyspnea, Light headed, Generalized weakness. No: Headache, Abdominal pain Associated symptoms: Abdominal pain (did have some cramping abd pain the past day or so.). No: Headache, Chest pain Contributing factors: Decreased PO intake, Just stood up. No: Recent med change Injury occurred: No: Fell, Head injury, Neck injury Similar symptoms before: Has not had sx before Recently seen: Not recently seen (He has been feeling ill and had a COVID test done at the care facility that was positive. He has been in isolation in his room. He states less appetite and oral intake. Cough with dyspnea.) Review of Systems Constitutional: reports: Fever, Myalgias Nose: reports: Rhinorrhea / runny nose. denies: Congestion Throat: denies: Sore throat Cardiac: reports: Pedal edema (mild chronic). denies: Chest pain / pressure, Palpitations, Calf pain Respiratory: reports: Dyspnea, Cough GI: reports: Abdominal Pain (intermittent cramping last night/today.). denies: Vomiting, Diarrhea Skin: denies: Rash, Lesions Neurologic: reports: Generalized weakness. denies: Focal weakness, Altered mental status, Headache, Head injury Endocrine: denies: Weight loss Immunocompromised: denies: Immunocompromised PD PAST MEDICAL HISTORY - Past Medical History Cardiovascular: Congestive heart failure Respiratory: None, CPAP use (Has home oxygen for 2 L nasal cannula to use as needed. He typically does not need it with activity but just wears it at night.) Neuro: None Endocrine/Autoimmune: None - Present Medications Home Medications: Ambulatory Orders Medication Instructions Recorded Confirmed Carvedilol [Coreg] 25 mg PO BID 08/07/22 08/07/22 Furosemide [Lasix] 40 mg PO DAILY 08/07/22 08/07/22 Loratadine [Claritin] 10 mg PO DAILY 08/07/22 08/07/22 Pravastatin [Pravachol] 10 mg PO QPM 08/07/22 08/07/22 Tamsulosin [Flomax] 0.4 mg PO DAILY 08/07/22 08/07/22 - Allergies Allergies/Adverse Reactions: Allergies Allergy/AdvReac Type Severity Reaction Status Date / Time No Known Drug Allergies Allergy Verified 08/07/22 10:02 - Living Situation Living Situation: reports: Alone Living Arrangement: reports: Assisted living - Social History Does the pt smoke?: No - POLST Patient has POLST: No POLST Status: Limited Interventions (no CPR and no intubation) PD ED PE NORMAL - Vitals Vital signs reviewed: Yes - General General: Alert and oriented X 3, Well developed/nourished, Other (He does appear somewhat pale. He does have some work of breathing and wheezing. Coarse wet sounds also noted in the bronchial area. He is able to talk in sentences.) - HEENT HEENT: Moist mucous membranes, Pharynx benign - Neck Neck: Supple, no meningeal sign, No adenopathy, No bruit, Other (mild JVD at 45 degrees.) - Cardiac Cardiac: RRR, No murmur - Respiratory Respiratory: No: Clear bilaterally (Mild expiratory wheezing noted centrally. Coarse sounds heard in the bronchial area. No dependent crackles.) - Abdomen Abdomen: Soft, Other (distended with decreased bowel sounds and some general tenderness. No percussion tenderness. ) - Male Male : Deferred - Rectal Rectal: Deferred - Back Back: No CVA TTP - Derm Derm: Normal color, Warm and dry - Extremities Extremities: No calf tenderness / cord, Other (1+ edema in both lower legs with indents from socks. ) - Neuro Neuro: Alert and oriented X 3, No motor deficit, Normal speech Results - Vitals Vitals: Vital Signs - 24 hr 08/07/22 08/07/22 08/07/22 09:56 12:02 13:28 Temperature 36.6 C Heart Rate 79 76 Respiratory 19 20 Rate Blood Pressure 140/73 H 113/43 L O2 Saturation 97 93 86 L If not protocol 2 3 : Oxygen Flow, liters/minute 08/07/22 08/07/22 08/07/22 13:40 13:49 14:44 Temperature 36.1 C L Heart Rate 85 94 Respiratory 22 21 Rate Blood Pressure 137/67 H O2 Saturation 85 L 97 If not protocol 5 15 : Oxygen Flow, liters/minute 08/07/22 15:00 Temperature Heart Rate 90 Respiratory 20 Rate Blood Pressure 187/80 H O2 Saturation 91 L If not protocol 15 : Oxygen Flow, liters/minute Oxygen O2 Source Oxymizer - Labs Labs: Laboratory Tests 08/07/22 08/07/22 08/07/22 10:11 10:11 10:11 WBC 9.7 RBC 3.57 L Hgb 10.6 L Hct 33.8 L MCV 94.7 H MCH 29.7 MCHC 31.4 L RDW 13.7 Plt Count 183 MPV 9.3 Neut # (Auto) 7.7 H Lymph # (Auto) 0.9 L Mercer # (Auto) 1.0 Eos # (Auto) 0.1 Baso # (Auto) 0.0 Absolute Nucleated RBC 0.00 Nucleated RBC % 0.0 Sodium 135 Potassium 3.8 Chloride 96 L Carbon Dioxide 29 Anion Gap 10.0 BUN 100 H* Creatinine 3.1 H Estimated GFR (MDRD) 19 L Glucose 219 H Calcium 8.9 Magnesium 2.6 Total Bilirubin 0.9 AST 14 ALT 23 Alkaline Phosphatase 53 B-Natriuretic Peptide 45 Total Protein 7.1 Albumin 3.3 Globulin 3.8 Albumin/Globulin Ratio 0.9 L Lipase 83 H Nasal Adenovirus (PCR) Nasal B. parapertussis DNA (PCR) Nasal Coronavir 229E PCR Nasal Coronavir HKU1 PCR Nasal Coronavir NL63 PCR Nasal Coronavir OC43 PCR Nasal Enterovir/Rhinovir PCR Nasal Influenza B PCR Nasal Influenza A PCR Nasal Parainfluen 1 PCR Nasal Parainfluen 2 PCR Nasal Parainfluen 3 PCR Nasal Parainfluen 4 PCR Nasal RSV (PCR) Nasal B.pertussis DNA PCR Nasal C.pneumoniae (PCR) Storm Human Metapneumo PCR Nasal M.pneumoniae (PCR) Nasal SARS-CoV-2 (PCR) 08/07/22 13:32 WBC RBC Hgb Hct MCV MCH MCHC RDW Plt Count MPV Neut # (Auto) Lymph # (Auto) Mercer # (Auto) Eos # (Auto) Baso # (Auto) Absolute Nucleated RBC Nucleated RBC % Sodium Potassium Chloride Carbon Dioxide Anion Gap BUN Creatinine Estimated GFR (MDRD) Glucose Calcium Magnesium Total Bilirubin AST ALT Alkaline Phosphatase B-Natriuretic Peptide Total Protein Albumin Globulin Albumin/Globulin Ratio Lipase Nasal Adenovirus (PCR) NOT DETECTED Nasal B. parapertussis DNA (PCR) NOT DETECTED Nasal Coronavir 229E PCR NOT DETECTED Nasal Coronavir HKU1 PCR NOT DETECTED Nasal Coronavir NL63 PCR NOT DETECTED Nasal Coronavir OC43 PCR NOT DETECTED Nasal Enterovir/Rhinovir PCR NOT DETECTED Nasal Influenza B PCR NOT DETECTED Nasal Influenza A PCR NOT DETECTED Nasal Parainfluen 1 PCR NOT DETECTED Nasal Parainfluen 2 PCR NOT DETECTED Nasal Parainfluen 3 PCR NOT DETECTED Nasal Parainfluen 4 PCR NOT DETECTED Nasal RSV (PCR) NOT DETECTED Nasal B.pertussis DNA PCR NOT DETECTED Nasal C.pneumoniae (PCR) NOT DETECTED Storm Human Metapneumo PCR NOT DETECTED Nasal M.pneumoniae (PCR) NOT DETECTED Nasal SARS-CoV-2 (PCR) DETECTED A - Rads (name of study) chest xray Radiology: Prelim report reviewed (no acute process noted. ), See rad report abd/pelvic CT Radiology: Prelim report reviewed (lots of gastric air. No air/fluid levels, no obstruction nor other acute process. ), See rad report PD Medical Decision Making - ED course Complexity details: reviewed results, re-evaluated patient (Recheck of the patient and he now is complaining of abdominal distention cramping and nausea. No vomiting. His abdomen is distended. We will get a CT scan at this time.), considered differential (Seems likely under hydration with postural near- syncope. Can check labs and give some IV fluids. Diagnosed with COVID several days ago. Chest x-ray to evaluate lungs.), d/w patient, d/w family (Talked with the patient and also his daughter who was at home in [place]. They are not aware of any POLST forms and nor pre-existing decisions. At this point he would be considered full code at the patient's request.) ED course: At approximately 1415 hrs. the patient was looking clearly ill enough and requiring oxygen for sore to need hospitalization. We somewhat concluded that even earlier than that but definitely at that time. No hospital beds are available at this point. There may be one in a few hours. I did talk with the patient and his daughter. They do not have any POLST forms or known pre-existing decisions. His daughter states the patient had avoided the topic whenever she try to raise it. The patient when presented with the possibility of needing intubation should his breathing keep getting worse, he states he would would like to have that done. So at this point the patient is remaining full code pending any other findings of a POLST form or such or the patient changes his mind. Addendum to that: The patient's daughter did arrive and we pulled out a POLST form and discussed for a reasonable length of time the potential interventions including oxygen, CPAP, BiPAP, intubation in the likely outcomes if illness progresses to that level. She the daughter and the patient at that point opted to fill out the POLST at the limited interventions with DO NOT INTUBATE and no CPR. They would want certainly fluids and medications and BiPAP and CPAP type interventions. I updated the hospitalist on this. The patient is being transferred to the floor at this point. Current condition is actually more relaxed and breathing with able to talk in sentences though he is still maintaining or requiring 15 L by facemask for oxygenation of 92 to 94%. - Critical Care Time(min): 40 Time Includes: Direct patient care, Reassess patient, Document care, Coordinate care, Family consult for tx dec Data interpretation: Labs, Pulse ox, CXR Departure - Departure Disposition: 66 [facility] DC/Xfer Clinical Impression: Pneumonia due to COVID-19 virus, Hypoxia, Near syncope, History of CHF (congestive heart failure) Condition: Serious Record reviewed to determine appropriate education?: Yes
[2022-08-07 10:23] LABS: BASOPHILS % (AUTO) 0.3 %; EOSINOPHILS # (AUTO) 0.1 10^3/uL (0.0-0.7); EOSINOPHILS % (AUTO) 1.3 %; HCT - HEMATOCRIT 33.8 % (42.0-52.0); HGB - HEMOGLOBIN 10.6 g/dL (14.0-18.0); LYMPHOCYTES # (AUTO) 0.9 10^3/uL (1.5-3.5); LYMPHOCYTES % (AUTO) 9.1 %; MEAN CORPUSCULAR HEMOGLOBIN 29.7 pg (27.0-31.0); MEAN CORPUSCULAR HGB CONC 31.4 g/dL (32.0-36.0); MEAN CORPUSCULAR VOLUME 94.7 fL (80.0-94.0); MEAN PLATELET VOLUME 9.3 fL (7.4-11.4); MONOCYTES % (AUTO) 10.1 %; NEUTROPHILS # (AUTO) 7.7 10^3/uL (1.5-6.6); NEUTROPHILS % (AUTO) 78.9 %; PLT - PLATELET COUNT 183 10^3/uL (130-450); RED BLOOD COUNT 3.57 10^6/uL (4.70-6.10); RED CELL DISTRIBUTION WIDTH 13.7 % (12.0-15.0); WHITE BLOOD COUNT 9.7 x10^3/uL (4.8-10.8)
--- NOTE | 2022-08-07 10:37 | XRAY Report ---
PROCEDURE: Chest 1 View X-Ray INDICATIONS: cough and dyspnea TECHNIQUE: One view of the chest was acquired. COMPARISON: None. FINDINGS: Surgical changes and devices: A pacer device can be seen. Lungs and pleura: An incomplete inspiratory result is noted, with low lung volumes and crowding of t he vascular markings. No focal infiltrates are seen. No large pneumothorax or large pleural effusion can be seen. Mediastinum: The aorta is prominent and tortuous. The cardiac contours are within normal limits. Bones and chest wall: No suspicious bony lesions. Age-appropriate degenerative changes are seen. O verlying soft tissues appear unremarkable. IMPRESSION: Limited portable chest examination, without an acute abnormality identified. Postoperative and degenerative changes are seen. Reviewed by: Ovi Espinoza MD on 08/07/2022 9:36 AM [facility] Approved by: Ovi Espinoza MD on 08/07/2022 9:36 AM [facility] Station ID: [id number]
[2022-08-07 10:49] LABS: ALBUMIN 3.3 g/dL (3.2-5.5); ALBUMIN/GLOBULIN RATIO 0.9 (1.0-2.2); BILIRUBIN,TOTAL 0.9 mg/dL (0.2-1.0); CALCIUM 8.9 mg/dL (8.5-10.3); CREATININE 3.1 mg/dL (0.6-1.2); MAGNESIUM 2.6 mg/dL (1.7-2.8); POTASSIUM 3.8 mmol/L (3.5-5.0); TOTAL PROTEIN 7.1 g/dL (6.7-8.2)
[2022-08-07] MEDS ORDERED: SODIUM CHLORIDE 0.9% 500 ML IV STA (11:23)
[2022-08-07] MEDS ORDERED: HYDROmorphone 0.5 MG/0.5 ML SYRINGE IVP STA (11:36)
[2022-08-07] MEDS ORDERED: ONDANSETRON 4 MG/2 ML VIAL IVP STA (11:39)
--- NOTE | 2022-08-07 12:34 | CT Report ---
PROCEDURE: ABDOMEN/PELVIS WO INDICATIONS: abd bloating and pain TECHNIQUE: Noncontrast 5 mm thick sections acquired from the diaphragms to the symphysis. 5 mm coronal and sagi ttal reformats were then performed. For radiation dose reduction, the following was used: automated exposure control, adjustment of mA and/or kV according to patient size. COMPARISON: Correlation is made with the accompanying chest radiograph, 08/07/2022. FINDINGS: Image quality: Excellent. ABDOMEN: Lung bases: Lung bases are clear. Heart size is normal. Pacer leads are seen. At least moderate co ronary artery calcification can be seen. Solid organs: Liver and spleen are normal in size. Calcified splenic granulomas can be seen. Gallbla dder wall does not appear thickened. Pancreas is normal in contours. No adrenal nodules. retrope ritoneal or mesenteric adenopathy by size criteria. Aorta and inferior vena cava are normal in calib er. Atherosclerotic calcification is seen. Miscellaneous: No ventral hernias Kidneys are normal in size, without hydronephrosis or nephrolithiasis. Along the posterior aspect of the right kidney, there is a cystic lesion seen that measures water density and measures 2.5 cm. Peritoneum and bowel: The stomach is distended and contains gas and fluid. No frankly dilated loops of small bowel are seen. A sigmoid anastomotic staple line can be seen. Distal colonic diverticulosis is seen, without finding s of active diverticulitis. A normal appendix is incidentally noted. Nodes and vessels: The aorta and IVC demonstrate normal caliber. Atherosclerotic calcification is se en. PELVIS: Genitourinary: Bladder wall thickness is normal. Miscellaneous: There is a right-sided inguinal hernia seen, which contains fat and nondilated small b owel. There is a fat-containing left inguinal hernia seen. Bones: No suspicious bony lesions. No vertebral body compression fractures. Age-appropriate degene rative changes are seen. IMPRESSION: Dilated stomach containing gas and fluid. Please consider gastritis. No frankly dilated loops of small bowel are seen. Bilateral inguinal hernias are seen. The hernia on the right contains fat and nondilated small bowel. Prior sigmoid resection, with anastomotic staple line. Diverticulosis can be seen, without jordan findings of active diverticulitis. Additional findings: Pacer leads At least moderate coronary artery calcification Apparent right renal cyst Prior granulomatous exposure. Normal appendix. Reviewed by: Ovi Espinoza MD on 08/07/2022 11:33 AM [facility] Approved by: Ovi Espinoza MD on 08/07/2022 11:33 AM [facility] Station ID: [id number]
[2022-08-07] MEDS ORDERED: MAG HYDROX/AL HYDROX/SIMETH 30 ML UDC PO STA (12:45)
[2022-08-07] MEDS ORDERED: IPRATROPIUM/ALBUTEROL 3 ML NEB INH STA (13:28)
[2022-08-07] MEDS ORDERED: FUROSEMIDE 20 MG/2 ML VIAL IVP STA (13:59)
[2022-08-07 15:42] LABS: B. PARAPERTUSSIS- RESP PCR PAN NOT DETECTED; B. PERTUSSIS- RESP PCR PANEL NOT DETECTED; C. PNEUMONIAE- RESP PCR PANEL NOT DETECTED; CORONAVIRUS 229E-RESP PCR NOT DETECTED; CORONAVIRUS HKU1-RESP PCR NOT DETECTED; CORONAVIRUS NL63-RESP PCR NOT DETECTED; CORONAVIRUS OC43-RESP PCR NOT DETECTED; HUMAN METAPNEUMOVIRUS NOT DETECTED; INFLUENZA A- RESP PCR PANEL NOT DETECTED; INFLUENZA B - RESP PCR PANEL NOT DETECTED; M. PNEUMONIAE- RESP PCR PANEL NOT DETECTED; PARAINFLUENZA VIRUS 1 NOT DETECTED; PARAINFLUENZA VIRUS 2 NOT DETECTED; PARAINFLUENZA VIRUS 3 NOT DETECTED; PARAINFLUENZA VIRUS 4 NOT DETECTED; RHINOVIRUS/ENTEROVIRUS NOT DETECTED; RSV- RESP PCR PANEL NOT DETECTED; SARS-CoV-2 -RESP PCR PANEL DETECTED
[2022-08-07] MEDS ORDERED: DEXAMETHASONE 10 MG/ML VIAL IVP STA (16:48)
[2022-08-07] MEDS ORDERED: hydrALAZINE INJ 20 MG/ML VIAL IVP PRN (16:49)
[2022-08-07] MEDS ORDERED: DEXTROSE 5%-0.9% NACL 1,000 ML IV SCH (17:00)
--- NOTE | 2022-08-07 17:08 | HISTORY & PHYSICAL EXAMINATION ---
Chief Complaint - Chief Complaint Chief Complaint: Weak, SOB, cough, abd cramps, poor appetite History of Present Illness - Admitted From Admitted From:: ED - History Obtained From History obtained from: ED provider - History of Present Illness HPI Comment/Other: This is an 86 y/o WM who lives in Assisted Living at [facility]. He has a "Hx of CHF" unknown if systolic or diatolic heart failure, CKD, has a pacemaker, HARJINDER on CPAP and is on Home O2 set at 2L/min for "COPD" per the pt and daughter says he uses it prn or at night. He has a Hx of bilateral carotid surgeries and Hx of a CVA with residual R arm weakness. For 4-5 days he has had malaise, weakness, no appetite and a cough. He then tested Covid (+) 3 days ago, and has been in isolation and eating very little. Today he felt lightheaded when stood up and called EMS. At the scene, his BP was 147/65, HR 94, O2 sat 89% on room air and 100% sat on 2L/min O2 per n.c. He received iv fluids en route. In the ED, he dropped his BP to 113 syst and was continued on iv fluids and also continued on suppl O2. His work-up shows creat 3.1 (is usually 2.4), WBC 9.7, Lactic Acid was not done, BNP 45 and CXR was without infiltrate or CHF, EKG is 100% ventr. paced, Covid re-test is (+) today. He has rhonchi and wheezing and his O2 needs have worsened while in ED, and he has most recently needed 15 L/min of O2 via oximizer. BP is now hypertensive at 180 systolic. He also c/o abd crampy pain in ED and a CT abd was done that showed alot of gas, no obstruction or other findings. His CODE BLUE status is Full Code, and specifically the ED provider asked if he would be OK if he needed a ventilator and he said yes. Then later, when the daughter arrived to the ED at bedside, Dr Kwan reviewed in detail what intubation and vent use entails, and the Pt does not want to be intubated. History - Past Medical History Cardiovascular: reports: Congestive heart failure Respiratory: reports: None, CPAP use (Has home oxygen for 2 L nasal cannula to use as needed. He typically does not need it with activity but just wears it at night.), Other (Also has Home O2) Neuro: reports: None Endocrine/Autoimmune: reports: Type 2 diabetes (just started Insulin 1 weeka go, per Pt) - Past Surgical History General: reports: Other (colonoscopy) Cardiovascular: reports: Pacemaker, Other (bilateral CEAs) - Family & Social History Family History: Mother: , Father: Family History Comment/Other: Diabetes and heart attacks run in the family, he s tated. Living arrangement: Assisted living Living Situation: Alone Social History Notes: He quit smoking 40 years ago. He drinks 1 or 2 glasses of either wine or beer per week. He is responsible for his own medications at [facility], not given by staff. - Substance History Use: Uses substance without health or social issues: NONE - POLST Patient has POLST: Yes POLST Status: Full Code Meds/Allgy - Home Medications Home Medications: Ambulatory Orders Medication Instructions Recorded Confirmed Carvedilol [Coreg] 25 mg PO BID 08/07/22 08/07/22 Furosemide [Lasix] 40 mg PO DAILY 08/07/22 08/07/22 Loratadine [Claritin] 10 mg PO DAILY 08/07/22 08/07/22 Pravastatin [Pravachol] 10 mg PO QPM 08/07/22 08/07/22 Tamsulosin [Flomax] 0.4 mg PO DAILY 08/07/22 08/07/22 - Allergies Allergies/Adverse Reactions: Allergies Allergy/AdvReac Type Severity Reaction Status Date / Time No Known Drug Allergies Allergy Verified 08/07/22 10:02 Review of Systems - Constitutional Constitutional: reports: Fatigue, Weakness, Poor appetite - Cardiovascular Cariovascular: reports: Lightheadedness - Respiratory Respiratory: reports: Cough, SOB at rest, SOB with exertion - Gastrointestinal Gastrointestinal: reports: Abdominal pain (and cramping) - All Other Systems All Other Systems: reports: Reviewed and negative Exam - Vital Signs Reviewed Vital Signs: Yes Vital Signs: Vital Signs x48h Temp Pulse Resp BP Pulse Ox O2 Flow Rate 08/07/22 15:00 90 20 187/80 H 91 L 15 08/07/22 14:44 94 21 08/07/22 13:49 36.1 C L 85 22 137/67 H 97 15 08/07/22 13:40 85 L 5 08/07/22 13:28 86 L 3 08/07/22 12:02 76 20 113/43 L 93 2 08/07/22 09:56 36.6 C 79 19 140/73 H 97 - Physical Exam General Appearance: positive: Alert, Mild distress (exam done remotely) Eyes Bilateral: positive: Normal inspection ENT: positive: ENT inspection nml, Other (Wearing ventimask now) Neck: positive: Other (Cannot evaluate JVP due to obesity and a large coles and wearing a Ventimask) Respiratory: positive: Wheezes, Rhonchi Cardiovascular: positive: Regular rate & rhythm Abdomen: positive: Other (Distended and hypertympanic) Skin: positive: Warm, Dry Extremities: positive: Non-tender, Other (trace ankle edema) Neurologic/Psychiatric: positive: Oriented x3, Other (R arm weakness (old)) Conclusion/Plan - Problem List (1) Acute on chronic respiratory failure with hypoxemia Conclusion/Plan: He has Home O2, but unclear if this is for CHF or COPD and if it is prn or to use when. He claims it was ordered for COPD, but his only med for COPD is Respimat inhaler. Currently, he has needed up to 15 L/min in ED and the cause appears to be his COVID pulmoinary infection. The CXR did not show any changes, but that was before he received significant fluids in the ED for hypotension and dehydration. Plan: Admit to Inpt status Cont suppl O2, target sat 88%. Will recheck the CXR, now that he has been hydrated Will treat the presumed underlying Covid pneumonia Will obtain Echo to establish LVEF, there is not one in records done here. We will continue with Duo neb treatment since this appeared to help somewhat in the ED (2) COVID-19 virus infection Conclusion/Plan: Plan: Infectious isolation He is a candidate for Remdesivir and Decadron Because of his poor appetite and abdominal cramping, bloating and distention, will order clear liquid diet, advance if tolerated. Will order prn Simethicone and prn Zofran (3) Near syncope Conclusion/Plan: He did have transient "soft" blood pressure that was documented. Given the SUKHWINDER I suspect he has dehydration and was probably orthostatic which caused his near syncope before calling EMS Plan: We will continue with IV fluids carefully Follow BMP daily, to assure not rising, until an Echo can be obtained. Will place on telemetry for 24 hours, then DC if rhythm stable (4) History of CHF (congestive heart failure) Conclusion/Plan: We have no record if this is a systolic or diastolic heart failure history. Plan: Will continue with his usual cardiac meds when pharmacy has reconciled his medication list Will obtain an Echo here (but today is Sat and our usual Echo service is not here until Tu). We will follow BNP daily for several days to assure it is not rising while he needs IV fluid Rechecking a CXR today (5) Uncontrolled type 2 diabetes mellitus with insulin therapy Conclusion/Plan: (E11.65) The patient says he was on oral medicines for this for years and has just been put on insulin 1 week ago. Plan: We are starting with a clear liquid diet because of his poor appetite and abdominal complaints but when it is advanced we will start carb controlled diet. Will order sliding scale insulin coverage and fingerstick checks and hypoglycemi a protocol Will check A1c with a.m. labs (6) HARJINDER on CPAP Conclusion/Plan: As per history. Plan: Continue with his home CPAP device here or with O2 bled in (BIPAP) Target oxygen saturation will be 88% (7) COPD (chronic obstructive pulmonary disease) Conclusion/Plan: His medication list shows he is on Respimat. The patient's says his oxygen was ordered 6 years ago and it was for COPD Plan: Will continue with inhalers while here Will continue with supplemental O2, target saturation 88% (8) Acute kidney injury superimposed on CKD Conclusion/Plan: Likely from volume depletion causing the acute elevation in BUN/creatinine Plan: Avoid nephrotoxins. Continue IV hydration carefully Follow BMP daily (9) Pacemaker Conclusion/Plan: On his resting EKG he has ventricular paced rhythm Plan: Unknown if this is an AICD pacemaker or a plain pacemaker. Will place on telemetry for 24 hours, then DC if rhythm stable - Lab Results Fish Bones: 08/07/22 10:11 08/07/22 10:11
[2022-08-07] MEDS ORDERED: SIMETHICONE 40 MG/0.6 ML 30 ML BOTTLE PO PRN (17:27)
--- NOTE | 2022-08-07 17:59 | XRAY Report ---
PROCEDURE: Chest 1 View X-Ray INDICATIONS: worsening hypoxia after iv fluid? Covid pneumonia TECHNIQUE: One view of the chest was acquired. COMPARISON: CXR earlier today, lung bases on CT abdomen pelvis earlier today. FINDINGS: Surgical changes and devices: Left pacemaker. Lungs and pleura: No pleural effusions or pneumothorax. No consolidation identified. Minimal perihil ar opacity. Mediastinum: Mediastinal contours appear unchanged. Heart size is normal. Bones and chest wall: No suspicious bony lesions. Overlying soft tissues appear unremarkable. IMPRESSION: Minimal perihilar opacity. This could represent pulmonary vasculature encouragement. Reviewed by: Izaiah Guadalupe MD on 08/07/2022 5:58 PM PST Approved by: Izaiah Guadalupe MD on 08/07/2022 5:58 PM PST Station ID: [id number]
[2022-08-07] MEDS: DEXTROSE 5%-0.9% NACL 1,000 ML IV SCH (18:22)
[2022-08-07] MEDS: SODIUM CHLORIDE FLUSH 0.9% 10 ML SYRINGE IVP SCH (18:24)
[2022-08-07] MEDS: ALBUTEROL 1 PUFF INH SCH (19:00)
[2022-08-07] MEDS ORDERED: REMDESIVIR 100MG VIAL 200 MG in SODIUM CHLORIDE 0.9% 250 ML IV ONE (20:00)
[2022-08-07] MEDS: PRAVASTATIN 10 MG TABLET PO SCH (20:48)
[2022-08-07] MEDS: carvediloL 12.5 MG TABLET PO SCH (20:48)
[2022-08-07] MEDS: guaiFENesin 600 MG TABLET PO SCH (20:49)
[2022-08-08] MEDS: SODIUM CHLORIDE FLUSH 0.9% 10 ML SYRINGE IVP SCH ×3 (05:12→17:04)
[2022-08-08 05:32] LABS: BASOPHILS % (AUTO) 0.1 %; HCT - HEMATOCRIT 33.3 % (42.0-52.0); HGB - HEMOGLOBIN 10.5 g/dL (14.0-18.0); LYMPHOCYTES # (AUTO) 0.6 10^3/uL (1.5-3.5); LYMPHOCYTES % (AUTO) 4.1 %; MEAN CORPUSCULAR HEMOGLOBIN 30.1 pg (27.0-31.0); MEAN CORPUSCULAR HGB CONC 31.5 g/dL (32.0-36.0); MEAN CORPUSCULAR VOLUME 95.4 fL (80.0-94.0); MEAN PLATELET VOLUME 9.8 fL (7.4-11.4); MONOCYTES # (AUTO) 0.7 10^3/uL (0.0-1.0); MONOCYTES % (AUTO) 4.7 %; NEUTROPHILS # (AUTO) 12.7 10^3/uL (1.5-6.6); NEUTROPHILS % (AUTO) 90.7 %; PLT - PLATELET COUNT 194 10^3/uL (130-450); RED BLOOD COUNT 3.49 10^6/uL (4.70-6.10); RED CELL DISTRIBUTION WIDTH 13.6 % (12.0-15.0)
[2022-08-08 05:57] LABS: CREATININE 2.6 mg/dL (0.6-1.2); POTASSIUM 3.8 mmol/L (3.5-5.0)
[2022-08-08] MEDS ORDERED: SIMETHICONE CHEW 80 MG TABLET PO PRN (07:25)
[2022-08-08] MEDS: ALBUTEROL 1 PUFF INH SCH ×3 (08:38→19:50)
[2022-08-08] MEDS: guaiFENesin 600 MG TABLET PO SCH ×2 (08:50→22:26)
[2022-08-08] MEDS: DEXTROSE 5%-0.9% NACL 1,000 ML IV SCH (08:50)
[2022-08-08] MEDS: DEXAMETHASONE 4 MG/ML VIAL IVP SCH (08:51)
[2022-08-08] MEDS: ENOXAPARIN 30 MG/0.3 ML SYRINGE SUBQ SCH (08:51)
[2022-08-08] MEDS: TAMSULOSIN 0.4 MG CAPSULE PO SCH (08:51)
[2022-08-08] MEDS: carvediloL 12.5 MG TABLET PO SCH ×2 (08:51→22:25)
[2022-08-08] MEDS: LORATADINE 10 MG TABLET PO SCH (08:52)
--- NOTE | 2022-08-08 10:08 | PHARMACY PROGRESS NOTE ---
- Best Possible Medication History Admit Date and Time: 08/07/22 0691 Processed by: Pharmacy Medication History completed: Yes Secondary Source(s): Facility MAR as ONLY source As the person ultimately responsible for medication therapy, providers are able to order a medication from an existing home medication list in [facility] via the "Reconcile Routine" prior to Confirmation of that medication by director decision support. Such practice is discouraged except when the physician, in their clinical judgment, deems that a medical need exists for a medication without regard to previous use.
[2022-08-08] MEDS ORDERED: CALCIUM CARBONATE CHEW 500 MG TABLET PO SCH (12:00)
[2022-08-08] MEDS ORDERED: INSULIN LISPRO 300 UNIT/3 ML PEN SUBQ SCH (12:00)
--- NOTE | 2022-08-08 12:05 | PROVIDER PROGRESS NOTE ---
Assessment/Plan - Problem List (1) Acute on chronic respiratory failure with hypoxemia Assessment/Plan: He has Home O2, but unclear if this is for CHF or COPD and if it is prn or to use when. He claims it was ordered for COPD, but his only med for COPD is Respimat inhaler. He was admitted with marked desats, temporarily needed up to 15 L/min in ED and the cause appears to be his COVID pulmoinary infection. The CXR did not show any changes, but that was before he received significant fluids in the ED, given for hypotension and dehydration. Today he complains of air hunger Plan: Cont suppl O2, target sat 88%. Will treat the probable underlying Covid pneumonia and stop iv fluids today, given the rise in BNP (2) COVID-19 virus infection Conclusion/Plan: He first got a cough, then malaise and a poor appetite, then weakness and SOB. When he presented to ER he was tachypneic and in severe resp distress, and also described GI bloating and mild abd pain. Plan: Infectious isolation He has been started on Remdesivir and Decadron Because of his poor appetite and abdominal cramping, bloating and distention, we ordered clear liquid diet, advance if tolerated. He is needing the prn Simethicone and wants TUMS, will order (3) Near syncope Conclusion/Plan: He did have transient "soft" blood pressure that was documented. And, given the SUKHWINDER at admission, I suspect he had dehydration and was probably orthostatic which caused his near syncope before calling EMS. Telemetry has been stable, showing 100% paced rhythm Plan: Will stop iv fluids today, given the rise in BNP. Will start to check orthostatic VS when he is not so SOB even with moving in bed Echo will be obtained. Will stop telemetry (4) History of CHF (congestive heart failure) Conclusion/Plan: We have no record if this is a systolic or diastolic heart failure history. BNP was normal at 45, on his first labwork. Today BNP elevated at 256. His repeat CXR showed either fluid or infiltrate. Plan: We ordered continuation with his usual cardiac meds, adding hold parameters if BP low. We need to stop iv fluids today, given the rise in BNP We will follow BNP daily for several days to assure it is not rising further Will obtain an Echo here (but today is Sun and our usual Echo service is not here until ). (5) Uncontrolled type 2 diabetes mellitus with insulin therapy Conclusion/Plan: (E11.65) The patient says he was on oral medicines for DM for years and has just been put on insulin 1 week ago. Then Pharmacy learned that for the past few days he was Hypoglycemic and they stopped the Insulin (that was probably when he had poor po intake as he developed Covid). Plan: We have started him on a clear liquid diet because of his poor appetite and abdominal complaints, but when it is advanced we will start carb controlled diet. Will order sliding scale insulin coverage and fingerstick checks and hypoglycemia protocol Will check A1c with a.m. labs (6) HARJINDER on CPAP Conclusion/Plan: As per history. Plan: Continue with his home CPAP device here or with O2 bled in (BIPAP) Target oxygen saturation will be 88% (7) COPD (chronic obstructive pulmonary disease) Conclusion/Plan: His medication list shows he is on Respimat. The patient's says his oxygen was ordered 6 years ago and it was for COPD Plan: Will continue with inhalers while here Continue steroids in the form of Decadron Will continue with supplemental O2, target saturation 88% (8) Acute kidney injury superimposed on CKD Conclusion/Plan: Likely from volume depletion when he had poor intake for 3 days, causing the acute elevation in BUN/creatinine Plan: Avoid nephrotoxins. He got iv hydration yesterday, turned down to TKO last night. and we need to stop it today, given the CXR result and rise in BNP today. Follow BMP daily (9) Pacemaker Conclusion/Plan: On his resting EKG he has 100% ventricular paced rhythm. Unknown if this is an AICD pacemaker or a plain pacemaker. He thinks it is a plain pacemaker. Plan: He was on telemetry for and we saw stable paced rhythm. Can stop telemetry today. - Current Meds Current Meds: Current Medications Generic Name Dose Route Start Last Admin Trade Name Otilia PRN Reason Stop Dose Admin Albuterol 2 puffs 08/07/22 22:00 08/08/22 08:38 Albuterol 1 Puff INH 2 puffs TID MEG Administration Carvedilol 25 mg 08/07/22 21:00 08/08/22 08:51 Carvedilol 12.5 Mg Tablet PO 25 mg BID MEG Administration Dexamethasone 6 mg 08/08/22 09:00 08/08/22 08:51 Dexamethasone 4 Mg/Ml Vial IVP 6 mg DAILY MEG Administration Enoxaparin Sodium 30 mg 08/08/22 09:00 08/08/22 08:51 Enoxaparin 30 Mg/0.3 Ml Syringe SUBQ 30 mg DAILY MEG Administration Guaifenesin 600 mg 08/07/22 21:00 08/08/22 08:50 Guaifenesin 600 Mg Tablet PO 600 mg BID MEG Administration Loratadine 10 mg 08/08/22 09:00 08/08/22 08:52 Loratadine 10 Mg Tablet PO 10 mg DAILY MEG Administration Pravastatin Sodium 10 mg 08/07/22 21:00 08/07/22 20:48 Pravastatin 10 Mg Tablet PO 10 mg QPM MEG Administration Simethicone 80 mg 08/08/22 07:25 08/08/22 11:28 Simethicone Chew 80 Mg Tablet PO 80 mg Q6HR PRN Administration Gas Sodium Chloride 10 ml 08/07/22 17:00 08/08/22 08:52 Sodium Chloride Flush 0.9% 10 Ml Syringe IVP 10 ml 0100,0900,1700 MEG Administration Tamsulosin HCl 0.4 mg 08/08/22 09:00 08/08/22 08:51 Tamsulosin 0.4 Mg Capsule PO 0.4 mg DAILY MEG Administration - Lab Result Fish Bone Diagrams: 08/08/22 05:03 08/08/22 05:03 - Additional Planning My Orders: My Active Orders 08/07/22 16:43 Activity Orders [RC] Q2HR IO [RC] IOSHIFT Initiate Bronchodialator Sandi [RC] .PROTOCOL Initiate Line Care Protocol [RC] QSHIFT Initiate Personal Care Protoco [RC] .protocol Initiate Secretion Clearance P [RC] .PROTOCOL Oxygen Therapy [RC] Q12H Vital Signs [RC] Q4HR Acetaminophen [Tylenol] 650 mg PO Q4HR PRN Ondansetron Inj [Zofran Inj] 4 mg IVP Q6HR PRN Sodium Chloride Flush 0.9% [Normal Saline Flush 0.9%] 10 ml IVP PRN PRN Code Status [OTHERS] Routine Condition of Patient [OTHERS] Routine DVT Prophylaxis [OTHERS] Routine 08/07/22 16:45 Daily Weight [RC] 0600 IV Insert [RC] .ONCE 12/24/22 16:49 hydrALAZINE INJ [Apresoline Inj] 10 mg IVP Q8H PRN 08/07/22 16:50 Home CPAP/BiPAP [RC] .ONCE 08/07/22 17:00 Sodium Chloride Flush 0.9% [Normal Saline Flush 0.9%] 10 ml IVP 0100,0900,1700 08/07/22 17:24 Miscellaenous Nursing Order [RC] QSHIFT 08/07/22 18:44 Infection Precautions [RC] QSHIFT 08/07/22 21:00 Pravastatin [Pravachol] 10 mg PO QPM carvediloL [Coreg] 25 mg PO BID guaiFENesin [Mucinex] 600 mg PO BID 08/07/22 22:00 Mdi: Albuterol 2 puffs INH TID 08/08/22 Breakfast Soft Mechanical Diet [DIET] 08/08/22 07:25 Simethicone [Mylicon] 80 mg PO Q6HR PRN 08/08/22 08:38 Nebulizer [Nebulizer/MDI Tx.] [RC] .tid 08/08/22 09:00 Enoxaparin [Lovenox] 30 mg SUBQ DAILY Loratadine [Claritin] 10 mg PO DAILY Tamsulosin [Flomax] 0.4 mg PO DAILY dexAMETHasone [Decadron] 6 mg IVP DAILY 08/08/22 09:29 Telemetry-Discontinue [RC] .ONCE 08/08/22 11:14 Blood Glucose Checks - Eating [RC] 0800,1200,1700,2100 Initiate Hypoglycemia Protocol [RC] .protocol 08/08/22 12:00 Calcium Carbonate [Tums] 500 mg PO BID Insulin Lispro [Humalog Kwikpen U-100] 1 - 5 unit SUBQ 0800,1200,1700,2100 08/08/22 16:00 Remdesivir 100Mg Vial [Veklury] 100 mg Sodium Chloride 0.9% 100Ml [Normal Saline 0.9% 100Ml] 100 ml IV DAILY 08/09/22 05:00 BMP - BASIC METABOLIC PANEL [CHEM] DAILYLAB BNP - B-NATRIURETIC PEPTIDE [IAI] DAILYLAB CBC - COMP BLD CT W/AUTO DIFF [HEME] DAILYLAB HEMOGLOBIN A1c% [CHEM] DAILYLAB 08/10/22 05:00 BMP - BASIC METABOLIC PANEL [CHEM] DAILYLAB BNP - B-NATRIURETIC PEPTIDE [IAI] DAILYLAB CBC - COMP BLD CT W/AUTO DIFF [HEME] DAILYLAB 08/10/22 17:31 Echo Transthoracic Complete [ECHO] Routine 08/11/22 05:00 BMP - BASIC METABOLIC PANEL [CHEM] DAILYLAB CBC - COMP BLD CT W/AUTO DIFF [HEME] DAILYLAB Subjective - Subjective Patient Reports: Other (Feels no better: feels SOB, has indigestion and bloating/gas.) Objective Vital Signs: Vital Signs - 24 hr 08/07/22 08/07/22 08/07/22 12:02 13:28 13:40 Temperature Heart Rate 76 Heart Rate [ Brachial] Respiratory 20 Rate Blood Pressure 113/43 L Blood Pressure [Left Brachial artery] Blood Pressure [Right Brachial artery] O2 Saturation 93 86 L 85 L If not protocol 2 3 5 : Oxygen Flow, liters/minute 08/07/22 08/07/22 08/07/22 13:49 14:44 15:00 Temperature 36.1 C L Heart Rate 85 94 90 Heart Rate [ Brachial] Respiratory 22 21 20 Rate Blood Pressure 137/67 H 187/80 H Blood Pressure [Left Brachial artery] Blood Pressure [Right Brachial artery] O2 Saturation 97 91 L If not protocol 15 15 : Oxygen Flow, liters/minute 08/07/22 08/07/22 08/07/22 17:00 18:40 19:00 Temperature 36.4 C L Heart Rate 88 Heart Rate [ 86 Brachial] Respiratory 20 20 Rate Blood Pressure 152/52 H Blood Pressure 142/65 H [Left Brachial artery] Blood Pressure [Right Brachial artery] O2 Saturation 95 If not protocol 15 15 3 : Oxygen Flow, liters/minute 08/07/22 08/08/22 08/08/22 20:36 00:29 05:00 Temperature 37.0 C 37.1 C 36.9 C Heart Rate Heart Rate [ 104 H 96 83 Brachial] Respiratory 19 18 20 Rate Blood Pressure Blood Pressure [Left Brachial artery] Blood Pressure 105/61 117/40 L 140/57 H [Right Brachial artery] O2 Saturation 88 L 90 L 97 If not protocol 11 15 : Oxygen Flow, liters/minute 08/08/22 08/08/22 08/08/22 05:54 07:35 08:39 Temperature 36.5 C Heart Rate 78 Heart Rate [ 80 Brachial] Respiratory 18 14 Rate Blood Pressure Blood Pressure [Left Brachial artery] Blood Pressure 120/53 L [Right Brachial artery] O2 Saturation 92 96 If not protocol 13 12 : Oxygen Flow, liters/minute Oxygen O2 Source CPAP I&O (Last 24 Hrs): Intake and Output Totals x24h 08/06/22 08/07/22 08/08/22 23:59 23:59 23:59 Intake Total 1963 901.333 Output Total 425 700 Balance 1538 201.333 General: Alert, Oriented x3, Mild distress (From GI upset and from SOB) HEENT: Mucous membr. moist/pink Neck: Supple Neuro: Alert, Non Focal Cardiovascular: Regular rate Respiratory: Rhonchi Abdomen: Soft Extremities: No clubbing, No edema - Results Results: Laboratory Results WBC 14.0 x10^3/uL (4.8-10.8) H 08/08/22 05:03 RBC 3.49 10^6/uL (4.70-6.10) L 08/08/22 05:03 Hgb 10.5 g/dL (14.0-18.0) L 08/08/22 05:03 Hct 33.3 % (42.0-52.0) L 08/08/22 05:03 MCV 95.4 fL (80.0-94.0) H 08/08/22 05:03 MCH 30.1 pg (27.0-31.0) 08/08/22 05:03 MCHC 31.5 g/dL (32.0-36.0) L 08/08/22 05:03 RDW 13.6 % (12.0-15.0) 08/08/22 05:03 Plt Count 194 10^3/uL (130-450) 08/08/22 05:03 MPV 9.8 fL (7.4-11.4) 08/08/22 05:03 Neut # (Auto) 12.7 10^3/uL (1.5-6.6) H 08/08/22 05:03 Lymph # (Auto) 0.6 10^3/uL (1.5-3.5) L 08/08/22 05:03 [place] # (Auto) 0.7 10^3/uL (0.0-1.0) 08/08/22 05:03 Eos # (Auto) 0.0 10^3/uL (0.0-0.7) 08/08/22 05:03 Baso # (Auto) 0.0 10^3/uL (0.0-0.1) 08/08/22 05:03 Absolute Nucleated RBC 0.00 x10^3/uL 08/08/22 05:03 Nucleated RBC % 0.0 /100WBC 08/08/22 05:03 Sodium 134 mmol/L (135-145) L 08/08/22 05:03 Potassium 3.8 mmol/L (3.5-5.0) 08/08/22 05:03 Chloride 96 mmol/L (101-111) L 08/08/22 05:03 Carbon Dioxide 27 mmol/L (21-32) 08/08/22 05:03 Anion Gap 11.0 (6-13) 08/08/22 05:03 BUN 92 mg/dL (6-20) H* 08/08/22 05:03 Creatinine 2.6 mg/dL (0.6-1.2) H 08/08/22 05:03 Estimated GFR (MDRD) 23 (>89) L 08/08/22 05:03 Glucose 391 mg/dL (70-100) H 08/08/22 05:03 Calcium 8.0 mg/dL (8.5-10.3) L 08/08/22 05:03 Magnesium 2.6 mg/dL (1.7-2.8) 08/07/22 10:11 Total Bilirubin 0.9 mg/dL (0.2-1.0) 08/07/22 10:11 AST 14 IU/L (10-42) 08/07/22 10:11 ALT 23 IU/L (10-60) 08/07/22 10:11 Alkaline Phosphatase 53 IU/L (42-121) 08/07/22 10:11 B-Natriuretic Peptide 256 pg/mL (5-100) H 08/08/22 05:03 Total Protein 7.1 g/dL (6.7-8.2) 08/07/22 10:11 Albumin 3.3 g/dL (3.2-5.5) 08/07/22 10:11 Globulin 3.8 g/dL (2.1-4.2) 08/07/22 10:11 Albumin/Globulin Ratio 0.9 (1.0-2.2) L 08/07/22 10:11 Lipase 83 U/L (22-51) H 08/07/22 10:11 Nasal Adenovirus (PCR) NOT DETECTED 08/07/22 13:32 Nasal B. parapertussis DNA (PCR) NOT DETECTED 08/07/22 13:32 Nasal Coronavir 229E PCR NOT DETECTED 08/07/22 13:32 Nasal Coronavir HKU1 PCR NOT DETECTED 08/07/22 13:32 Nasal Coronavir NL63 PCR NOT DETECTED 08/07/22 13:32 Nasal Coronavir OC43 PCR NOT DETECTED 08/07/22 13:32 Nasal Enterovir/Rhinovir PCR NOT DETECTED 08/07/22 13:32 Nasal Influenza B PCR NOT DETECTED 08/07/22 13:32 Nasal Influenza A PCR NOT DETECTED 08/07/22 13:32 Nasal Parainfluen 1 PCR NOT DETECTED 08/07/22 13:32 Nasal Parainfluen 2 PCR NOT DETECTED 08/07/22 13:32 Nasal Parainfluen 3 PCR NOT DETECTED 08/07/22 13:32 Nasal Parainfluen 4 PCR NOT DETECTED 08/07/22 13:32 Nasal RSV (PCR) NOT DETECTED 08/07/22 13:32 Nasal B.pertussis DNA PCR NOT DETECTED 08/07/22 13:32 Nasal C.pneumoniae (PCR) NOT DETECTED 08/07/22 13:32 Storm Human Metapneumo PCR NOT DETECTED 08/07/22 13:32 Nasal M.pneumoniae (PCR) NOT DETECTED 08/07/22 13:32 Nasal SARS-CoV-2 (PCR) DETECTED A 08/07/22 13:32
[2022-08-08] MEDS: REMDESIVIR 100MG VIAL 100 MG in SODIUM CHLORIDE 0.9% 100ML 100 ML IV SCH (17:03)
[2022-08-08] MEDS: INSULIN LISPRO 300 UNIT/3 ML PEN SUBQ SCH ×2 (17:05→22:31)
[2022-08-08] MEDS: CALCIUM CARBONATE CHEW 500 MG TABLET PO PRN (18:42)
[2022-08-08] MEDS: ONDANSETRON 4 MG/2 ML VIAL IVP PRN (20:59)
[2022-08-08] MEDS: PRAVASTATIN 10 MG TABLET PO SCH (22:26)
[2022-08-09] MEDS: SODIUM CHLORIDE FLUSH 0.9% 10 ML SYRINGE IVP SCH ×3 (00:48→18:20)
[2022-08-09] MEDS: CALCIUM CARBONATE CHEW 500 MG TABLET PO PRN (02:40)
[2022-08-09 06:56] LABS: BASOPHILS % (AUTO) 0.1 %; HCT - HEMATOCRIT 34.5 % (42.0-52.0); HGB - HEMOGLOBIN 10.7 g/dL (14.0-18.0); LYMPHOCYTES # (AUTO) 0.5 10^3/uL (1.5-3.5); LYMPHOCYTES % (AUTO) 5.3 %; MEAN CORPUSCULAR HEMOGLOBIN 29.6 pg (27.0-31.0); MEAN CORPUSCULAR VOLUME 95.6 fL (80.0-94.0); MEAN PLATELET VOLUME 9.8 fL (7.4-11.4); MONOCYTES # (AUTO) 0.8 10^3/uL (0.0-1.0); MONOCYTES % (AUTO) 8.7 %; NEUTROPHILS # (AUTO) 7.9 10^3/uL (1.5-6.6); NEUTROPHILS % (AUTO) 85.7 %; PLT - PLATELET COUNT 202 10^3/uL (130-450); RED BLOOD COUNT 3.61 10^6/uL (4.70-6.10); RED CELL DISTRIBUTION WIDTH 13.6 % (12.0-15.0); WHITE BLOOD COUNT 9.2 x10^3/uL (4.8-10.8)
[2022-08-09 07:10] LABS: CREATININE 2.2 mg/dL (0.6-1.2); POTASSIUM 4.2 mmol/L (3.5-5.0)
[2022-08-09] MEDS: ALBUTEROL 1 PUFF INH SCH ×2 (07:30→15:08)
[2022-08-09] MEDS: REMDESIVIR 100MG VIAL 100 MG in SODIUM CHLORIDE 0.9% 100ML 100 ML IV SCH (09:17)
[2022-08-09] MEDS: TAMSULOSIN 0.4 MG CAPSULE PO SCH (09:18)
[2022-08-09] MEDS: LORATADINE 10 MG TABLET PO SCH (09:18)
[2022-08-09] MEDS: guaiFENesin 600 MG TABLET PO SCH ×2 (09:18→22:16)
[2022-08-09] MEDS: DEXAMETHASONE 4 MG/ML VIAL IVP SCH (09:18)
[2022-08-09] MEDS: carvediloL 12.5 MG TABLET PO SCH ×2 (09:18→22:15)
[2022-08-09] MEDS: ENOXAPARIN 30 MG/0.3 ML SYRINGE SUBQ SCH (09:19)
[2022-08-09] MEDS: INSULIN REGULAR HUMAN 300 UNIT/3 ML VIAL SUBQ SCH ×3 (09:27→18:20)
[2022-08-09] MEDS: ONDANSETRON 4 MG/2 ML VIAL IVP PRN (09:32)
[2022-08-09] MEDS ORDERED: ZOLPIDEM 5 MG TABLET PO PRN (10:29)
[2022-08-09] MEDS: SODIUM CHLORIDE FLUSH 0.9% 10 ML SYRINGE IVP PRN ×2 (10:45→14:51)
[2022-08-09 11:34] LABS: ESTIMATED AVERAGE GLUCOSE 200 mg/dL (70-100); HEMOGLOBIN A1c% 8.6 % (4.27-6.07)
--- NOTE | 2022-08-09 11:51 | XRAY Report ---
PROCEDURE: Chest 1 View X-Ray INDICATIONS: NG tube placement verification. TECHNIQUE: One view of the chest was acquired. COMPARISON: 08/07/2022 FINDINGS: Surgical changes and devices: The gastric tube is seen, with the tip not visible, yet overlying the stomach. A pacer device can be seen. Lungs and pleura: Low lung volumes are seen. Mild patchy interstitial infiltrates are seen. On the semiupright images, no large pneumothorax or large pleural effusions can be seen. Mediastinum: Mediastinal contours appear normal. Heart size is normal. Bones and chest wall: No suspicious bony lesions. Overlying soft tissues appear unremarkable. IMPRESSION: The tip of the gastric tube is not seen within the [id number] of this study, yet the tube clearly overlies the stomach. Low lung volumes with mild patchy opacities. Please consider developing infiltrates versus artifact f rom the low lung volumes. Reviewed by: Ovi Espinoza MD on 08/09/2022 10:49 AM [facility] Approved by: Ovi Espinoza MD on 08/09/2022 10:49 AM [facility] Station ID: [id number]
--- NOTE | 2022-08-09 13:11 | PROVIDER PROGRESS NOTE ---
Assessment/Plan - Problem List (1) N&V (nausea and vomiting) Assessment/Plan: When he was sick at the [facility] with 3 days of COVID, he had bloating, generalized abd pain and poor appetite but no nausea or vomiting. Yesterday he had 7 episodes of nausea and vomiting. Emesis was brown, had no coffee grounds. His CT abd done at admission was reviewed. It showed a dilated stomach w/ air fluid levels, no other intestinal obstruction was reported. Because of his poor appetite at admission and abdominal cramping, bloating and distention, we started him on a clear liquid diet, but that was advance yesterday to soft. He was ordered to get prn Simethicone and wanted TUMS yesterday, before the vomiting started. Those were ordered. Perhaps he has gastritis as a major component of his Covid, but we also cannot R /O an anatomical obstruction to gastric emptying. Plan: Change soft diet to NPO except meds w/ sips. Place ng tube for decompression, and order low intermittent wall suction. Gen Surg consult ordered for further advice, but we have no Gen Surgery available at all today, per the On-Call, schedule (it is 08/09, an official holiday for 08/08). (2) Acute on chronic respiratory failure with hypoxemia Assessment/Plan: He has Home O2, but unclear if this is for CHF or COPD and if it is prn or to use when. He claims it was ordered for COPD, but his only med for COPD is Respimat inhaler. He was admitted with marked desats, temporarily needed up to 15 L/min in ED and the cause appears to be his COVID pulmoinary infection. The CXR did not show any changes, but that was before he received significant fluids in the ED, given for hypotension and dehydration. Plan: Cont suppl O2, target sat 88%. We are treating the probable underlying Covid pneumonia and stopped iv fluids when we saw rise in BNP. Will restart slow iv fluids, while he is NPO. Will obtain an Echo to assure no systolic heart failure (today is Tue and Echo service not here until ). (3) COVID-19 virus infection Conclusion/Plan: He first got a cough, then malaise and a poor appetite, then weakness and SOB. When he presented to ER he was tachypneic and in severe resp distress, and also described GI bloating and mild abd pain. Plan: Infectious isolation He has been started on Remdesivir and Decadron Because of his poor appetite and abdominal cramping, bloating and distention, we ordered clear liquid diet, then advanced it, but will de-escalate today for bowel rest and decompress the stomach (as in #1). (4) Near syncope Conclusion/Plan: He did have transient "soft" blood pressure that was documented. And, given the SUKHWINDER at admission, I suspect he had dehydration and was probably orthostatic which caused his near syncope before calling EMS. Telemetry has been stable, showing 100% paced rhythm Plan: We stop iv fluids today, given the rise in BNP. We ordered orthostatic VS checks Echo will be obtained. (5) History of CHF (congestive heart failure) Conclusion/Plan: We have no record if this is a systolic or diastolic heart failure history. BNP was normal at 45, on his first labwork. Then BNP elevated at 256. His repeat CXR showed either fluid or infiltrate. Plan: We ordered continuation with his usual cardiac meds, adding hold parameters if BP low. Will restart slow iv fluids today, given NPO status We will follow BNP daily for several days to assure it is not rising further Will obtain an Echo here (but today is Mon and our usual Echo service is not here until ). (6) Uncontrolled type 2 diabetes mellitus with insulin therapy Conclusion/Plan: (E11.65) The patient says he was on oral medicines for DM for years and has just been put on insulin 1 week ago. Then Pharmacy learned that he was on Insulin since May 2022, then for the past few days he was Hypoglycemic and they stopped the Insul in (that was probably when he had poor po intake as he developed his abdominal complaints and caught Covid). His glu here are running 300-400, probably from being on Decadron. His A1c came back at 8.6, indicating poor glu control. Plan: We started him on a clear liquid diet, then advanced, now is NPO because of N/V and gastric distension. When diet is advanced we will start carb controlled diet. We order sliding scale insulin coverage and fingerstick checks and hypoglycemia protocol, will chenge to q6h now that he is NPO. (7) HARJINDER on CPAP Conclusion/Plan: As per history. Plan: Continue with his home CPAP device here or with O2 bled in (BIPAP) Target oxygen saturation will be 88% (8) COPD (chronic obstructive pulmonary disease) Conclusion/Plan: His medication list shows he is on Respimat. The patient's says his oxygen was ordered 6 years ago and it was for COPD Plan: Will continue with inhalers while here Continue steroids in the form of Decadron Will continue with supplemental O2, target saturation 88% (9) Acute kidney injury superimposed on CKD Conclusion/Plan: Likely from volume depletion when he had poor intake for 3 days before hospitalization, causing the acute elevation in BUN/creatinine Plan: Avoid nephrotoxins. He got iv hydration then we needed to stop it, given the CXR result and rise in BNP. Will restart slow iv fluids today Follow BMP daily (10) Pacemaker Conclusion/Plan: On his resting EKG he has 100% ventricular paced rhythm. Unknown if this is an AICD pacemaker or a plain pacemaker. He thinks it is a plain pacemaker. Plan: He was on telemetry for and we saw stable paced rhythm. Can stop telemetry to day. (11) Poor memory There were many details that he gave incorrectly about his medical history. He does live in an [place], but told me he alone is responsible for organizing and taking all his meds there. Unsure if he carries a Dx of Dementia or is on any meds for this. Plan: Will discuss with family or the [place]. - Current Meds Current Meds: Current Medications Generic Name Dose Route Start Last Admin Trade Name Freq PRN Reason Stop Dose Admin Albuterol 2 puffs 08/07/22 22:00 08/09/22 07:30 Albuterol 1 Puff INH 2 puffs TID MEG Administration Calcium Carbonate/Glycine 1,000 mg 08/08/22 15:10 08/09/22 02:40 Calcium Carbonate Chew 500 Mg Tablet PO 1,000 mg TID PRN Administration INDIGESTION Carvedilol 25 mg 08/07/22 21:00 08/09/22 09:18 Carvedilol 12.5 Mg Tablet PO 25 mg BID MEG Administration Dexamethasone 6 mg 08/08/22 09:00 08/09/22 09:18 Dexamethasone 4 Mg/Ml Vial IVP 6 mg DAILY MEG Administration Enoxaparin Sodium 30 mg 08/08/22 09:00 08/09/22 09:19 Enoxaparin 30 Mg/0.3 Ml Syringe SUBQ 30 mg DAILY EMG Administration Guaifenesin 600 mg 08/07/22 21:00 08/09/22 09:18 Guaifenesin 600 Mg Tablet PO 600 mg BID MEG Administration Remdesivir 100 mg/ Sodium 100 mls @ 200 mls/hr 08/08/22 16:00 08/09/22 09:48 Chloride IV 08/11/22 09:29 Infused DAILY MEG Infusion Insulin Human Regular 1 - 9 unit 08/09/22 09:00 08/09/22 12:10 Insulin Regular Human 300 Unit/3 Ml Vial SUBQ 7 unit Q6HR MEG Administration Protocol Loratadine 10 mg 08/08/22 09:00 08/09/22 09:18 Loratadine 10 Mg Tablet PO 10 mg DAILY MEG Administration Ondansetron HCl 4 mg 08/07/22 16:43 08/09/22 09:32 Ondansetron 4 Mg/2 Ml Vial IVP 4 mg Q6HR PRN Administration Nausea / Vomiting Pravastatin Sodium 10 mg 08/07/22 21:00 08/08/22 22:26 Pravastatin 10 Mg Tablet PO 10 mg QPM MEG Administration Simethicone 80 mg 08/08/22 07:25 08/08/22 11:28 Simethicone Chew 80 Mg Tablet PO 80 mg Q6HR PRN Administration Gas Sodium Chloride 10 ml 08/07/22 16:43 08/09/22 10:45 Sodium Chloride Flush 0.9% 10 Ml Syringe IVP 10 ml PRN PRN Administration NEEDED PER PROVIDER ORDERS Sodium Chloride 10 ml 08/07/22 17:00 08/09/22 09:11 Sodium Chloride Flush 0.9% 10 Ml Syringe IVP 10 ml 0100,0900,1700 MEG Administration Tamsulosin HCl 0.4 mg 08/08/22 09:00 08/09/22 09:18 Tamsulosin 0.4 Mg Capsule PO 0.4 mg DAILY MEG Administration - Lab Result Fish Bone Diagrams: 08/09/22 06:32 08/09/22 06:32 - Additional Planning My Orders: My Active Orders 08/08/22 15:10 Calcium Carbonate [Tums] 1,000 mg PO TID PRN 08/08/22 16:00 Remdesivir 100Mg Vial [Veklury] 100 mg Sodium Chloride 0.9% 100Ml [Normal Saline 0.9% 100Ml] 100 ml IV DAILY 08/09/22 Consult [General Surgery Consult] [CONS] Routine 08/09/22 07:38 NG Tube Care [RC] Q4HR 08/09/22 09:00 Insulin Regular Human [Humulin R] 1 - 9 unit SUBQ Q6HR 08/09/22 10:29 DIET [NPO except Meds] [DIET] Zolpidem [Ambien] 5 mg PO QPM PRN 08/09/22 13:00 Ipratropium [Atrovent] 0.5 mg INH RTQ6H 08/09/22 21:00 Insulin Glargine-Yfgn [Semglee] 10 unit SUBQ QPM 08/10/22 05:00 BMP - BASIC METABOLIC PANEL [CHEM] DAILYLAB BNP - B-NATRIURETIC PEPTIDE [IAI] DAILYLAB CBC - COMP BLD CT W/AUTO DIFF [HEME] DAILYLAB 08/10/22 17:31 Echo Transthoracic Complete [ECHO] Routine 08/11/22 05:00 BMP - BASIC METABOLIC PANEL [CHEM] DAILYLAB CBC - COMP BLD CT W/AUTO DIFF [HEME] DAILYLAB Subjective - Subjective Patient Reports: Nausea (Pt vomited 7 times in the last 24 hours. SOB has not changed, no better, no worse.) Objective Vital Signs: Vital Signs - 24 hr 08/08/22 08/08/22 08/08/22 13:46 14:03 16:48 Temperature 36.8 C 36.3 C L Heart Rate 80 Heart Rate [ 74 80 Brachial] Respiratory 16 20 16 Rate Blood Pressure 123/56 L 148/60 H [Right Brachial artery] O2 Saturation 95 94 If not protocol 12 13 13 : Oxygen Flow, liters/minute 08/08/22 08/08/22 08/09/22 19:50 21:00 00:45 Temperature 36.7 C 36.8 C Heart Rate 80 Heart Rate [ 81 84 Brachial] Respiratory 20 20 20 Rate Blood Pressure 153/60 H 144/54 H [Right Brachial artery] O2 Saturation 98 92 If not protocol 13 13 13 : Oxygen Flow, liters/minute 08/09/22 08/09/22 08/09/22 05:00 07:39 09:14 Temperature 36.4 C L 36.4 C L Heart Rate Heart Rate [ 87 88 Brachial] Respiratory 20 18 Rate Blood Pressure 135/61 H 129/56 L [Right Brachial artery] O2 Saturation 98 92 92 If not protocol 13 13 13 : Oxygen Flow, liters/minute 08/09/22 08/09/22 08/09/22 09:15 11:11 11:37 Temperature Heart Rate 87 Heart Rate [ 87 Brachial] Respiratory 20 Rate Blood Pressure 136/60 H [Right Brachial artery] O2 Saturation 92 If not protocol 15 15 : Oxygen Flow, liters/minute 08/09/22 11:44 Temperature 36.6 C Heart Rate Heart Rate [ 89 Brachial] Respiratory 20 Rate Blood Pressure 130/60 [Right Brachial artery] O2 Saturation 95 If not protocol 15 : Oxygen Flow, liters/minute Oxygen O2 Source Oxymizer I&O (Last 24 Hrs): Intake and Output Totals x24h 08/07/22 08/08/22 08/09/22 23:59 23:59 23:59 Intake Total 1963 1531.333 140 Output Total 425 1050 200 Balance 1538 481.333 -60 General: Alert, Mild distress (from SOB and from nausea) HEENT: Mucous membr. moist/pink, Other (wearing his CPAP) Neuro: Alert, Non Focal, Other (poor memDory) Cardiovascular: No murmurs Respiratory: Other (distant breath sounds) Abdomen: Soft, No tenderness (no guarding or rebound) Extremities: No clubbing, No edema - Results Results: Laboratory Results WBC 9.2 x10^3/uL (4.8-10.8) 08/09/22 06:32 RBC 3.61 10^6/uL (4.70-6.10) L 08/09/22 06:32 Hgb 10.7 g/dL (14.0-18.0) L 08/09/22 06:32 Hct 34.5 % (42.0-52.0) L 08/09/22 06:32 MCV 95.6 fL (80.0-94.0) H 08/09/22 06:32 MCH 29.6 pg (27.0-31.0) 08/09/22 06:32 MCHC 31.0 g/dL (32.0-36.0) L 08/09/22 06:32 RDW 13.6 % (12.0-15.0) 08/09/22 06:32 Plt Count 202 10^3/uL (130-450) 08/09/22 06:32 MPV 9.8 fL (7.4-11.4) 08/09/22 06:32 Neut # (Auto) 7.9 10^3/uL (1.5-6.6) H 08/09/22 06:32 Lymph # (Auto) 0.5 10^3/uL (1.5-3.5) L 08/09/22 06:32 [place] # (Auto) 0.8 10^3/uL (0.0-1.0) 08/09/22 06:32 Eos # (Auto) 0.0 10^3/uL (0.0-0.7) 08/09/22 06:32 Baso # (Auto) 0.0 10^3/uL (0.0-0.1) 08/09/22 06:32 Absolute Nucleated RBC 0.00 x10^3/uL 08/09/22 06:32 Nucleated RBC % 0.0 /100WBC 08/09/22 06:32 Sodium 141 mmol/L (135-145) 08/09/22 06:32 Potassium 4.2 mmol/L (3.5-5.0) 08/09/22 06:32 Chloride 99 mmol/L (101-111) L 08/09/22 06:32 Carbon Dioxide 33 mmol/L (21-32) H 08/09/22 06:32 Anion Gap 9.0 (6-13) 08/09/22 06:32 BUN 96 mg/dL (6-20) H* 08/09/22 06:32 Creatinine 2.2 mg/dL (0.6-1.2) H 08/09/22 06:32 Estimated GFR (MDRD) 28 (>89) L 08/09/22 06:32 Glucose 288 mg/dL (70-100) H 08/09/22 06:32 Estimat Average Glucose 200 mg/dL (70-100) H 08/09/22 06:32 Hemoglobin A1c % 8.6 % (4.27-6.07) H 08/09/22 06:32 Calcium 9.0 mg/dL (8.5-10.3) 08/09/22 06:32 Magnesium 2.6 mg/dL (1.7-2.8) 08/07/22 10:11 Total Bilirubin 0.9 mg/dL (0.2-1.0) 08/07/22 10:11 AST 14 IU/L (10-42) 08/07/22 10:11 ALT 23 IU/L (10-60) 08/07/22 10:11 Alkaline Phosphatase 53 IU/L (42-121) 08/07/22 10:11 B-Natriuretic Peptide 265 pg/mL (5-100) H 08/09/22 06:32 Total Protein 7.1 g/dL (6.7-8.2) 08/07/22 10:11 Albumin 3.3 g/dL (3.2-5.5) 08/07/22 10:11 Globulin 3.8 g/dL (2.1-4.2) 08/07/22 10:11 Albumin/Globulin Ratio 0.9 (1.0-2.2) L 08/07/22 10:11 Lipase 83 U/L (22-51) H 08/07/22 10:11 Nasal Adenovirus (PCR) NOT DETECTED 08/07/22 13:32 Nasal B. parapertussis DNA (PCR) NOT DETECTED 08/07/22 13:32 Nasal Coronavir 229E PCR NOT DETECTED 08/07/22 13:32 Nasal Coronavir HKU1 PCR NOT DETECTED 08/07/22 13:32 Nasal Coronavir NL63 PCR NOT DETECTED 08/07/22 13:32 Nasal Coronavir OC43 PCR NOT DETECTED 08/07/22 13:32 Nasal Enterovir/Rhinovir PCR NOT DETECTED 08/07/22 13:32 Nasal Influenza B PCR NOT DETECTED 08/07/22 13:32 Nasal Influenza A PCR NOT DETECTED 08/07/22 13:32 Nasal Parainfluen 1 PCR NOT DETECTED 08/07/22 13:32 Nasal Parainfluen 2 PCR NOT DETECTED 08/07/22 13:32 Nasal Parainfluen 3 PCR NOT DETECTED 08/07/22 13:32 Nasal Parainfluen 4 PCR NOT DETECTED 08/07/22 13:32 Nasal RSV (PCR) NOT DETECTED 08/07/22 13:32 Nasal B.pertussis DNA PCR NOT DETECTED 08/07/22 13:32 Nasal C.pneumoniae (PCR) NOT DETECTED 08/07/22 13:32 Storm Human Metapneumo PCR NOT DETECTED 08/07/22 13:32 Nasal M.pneumoniae (PCR) NOT DETECTED 08/07/22 13:32 Nasal SARS-CoV-2 (PCR) DETECTED A 08/07/22 13:32
[2022-08-09] MEDS ORDERED: SODIUM CHLORIDE 0.9% 1,000 ML IV SCH (14:00)
[2022-08-09] MEDS: IPRATROPIUM 0.2 MG/ML NEB INH SCH ×2 (14:30→19:10)
[2022-08-09] MEDS ORDERED: PHENOL THROAT SPRAY 177 ML MM PRN (15:37)
[2022-08-09] MEDS: INSULIN GLARGINE-YFGN 300 UNIT/3 ML PEN SUBQ SCH (22:15)
[2022-08-09] MEDS: PRAVASTATIN 10 MG TABLET PO SCH (22:16)
[2022-08-10] MEDS: INSULIN REGULAR HUMAN 300 UNIT/3 ML VIAL SUBQ SCH ×4 (00:05→18:02)
[2022-08-10] MEDS: SODIUM CHLORIDE FLUSH 0.9% 10 ML SYRINGE IVP SCH ×3 (00:06→17:55)
[2022-08-10] MEDS: IPRATROPIUM 0.2 MG/ML NEB INH SCH ×4 (00:08→23:15)
[2022-08-10 05:15] LABS: BASOPHILS % (AUTO) 0.1 %; HCT - HEMATOCRIT 35.3 % (42.0-52.0); HGB - HEMOGLOBIN 10.9 g/dL (14.0-18.0); LYMPHOCYTES # (AUTO) 0.4 10^3/uL (1.5-3.5); LYMPHOCYTES % (AUTO) 5.9 %; MEAN CORPUSCULAR HEMOGLOBIN 29.7 pg (27.0-31.0); MEAN CORPUSCULAR HGB CONC 30.9 g/dL (32.0-36.0); MEAN CORPUSCULAR VOLUME 96.2 fL (80.0-94.0); MEAN PLATELET VOLUME 10.2 fL (7.4-11.4); MONOCYTES # (AUTO) 0.9 10^3/uL (0.0-1.0); MONOCYTES % (AUTO) 13.4 %; NEUTROPHILS # (AUTO) 5.5 10^3/uL (1.5-6.6); NEUTROPHILS % (AUTO) 80.5 %; PLT - PLATELET COUNT 217 10^3/uL (130-450); RED BLOOD COUNT 3.67 10^6/uL (4.70-6.10); RED CELL DISTRIBUTION WIDTH 13.6 % (12.0-15.0); WHITE BLOOD COUNT 6.8 x10^3/uL (4.8-10.8)
[2022-08-10 05:35] LABS: CALCIUM 9.1 mg/dL (8.5-10.3); CREATININE 2.1 mg/dL (0.6-1.2); POTASSIUM 3.9 mmol/L (3.5-5.0)
[2022-08-10] MEDS: ALBUTEROL 1 PUFF INH SCH ×4 (09:16→23:15)
[2022-08-10] MEDS: carvediloL 12.5 MG TABLET PO SCH ×2 (09:30→21:01)
[2022-08-10] MEDS: DEXAMETHASONE 4 MG/ML VIAL IVP SCH (09:33)
[2022-08-10] MEDS: LORATADINE 10 MG TABLET PO SCH (09:34)
[2022-08-10] MEDS: ENOXAPARIN 30 MG/0.3 ML SYRINGE SUBQ SCH (09:34)
[2022-08-10] MEDS: TAMSULOSIN 0.4 MG CAPSULE PO SCH (09:37)
[2022-08-10] MEDS: guaiFENesin 600 MG TABLET PO SCH ×2 (09:38→21:01)
[2022-08-10] MEDS: REMDESIVIR 100MG VIAL 100 MG in SODIUM CHLORIDE 0.9% 100ML 100 ML IV SCH (10:16)
[2022-08-10] MEDS ORDERED: DIATRIZOATE MEGLU/DIATRIZO SOD 30 ML BOTTLE PO ONE (14:06)
--- NOTE | 2022-08-10 17:42 | CONSULTATION NOTE ---
Referring Provider Consult Date: 08/10/22 Chief Complaint - Chief Complaint Chief Complaint: consult for possible gastric outlet obstruction History of Present Illness - History Obtained From Records Reviewed: yes History obtained from: pt Exam Limitations: none - History of Present Illness HPI Comment/Other: admitted with covid pneumonia and abdominal distension. [address] scan reviewed right inguinal hernia with small bowel, very distended stomach with air and mild diffuse distension of small bowel and colon with air. no apparent obstruction History - Past Medical History Cardiovascular: reports: Congestive heart failure Respiratory: reports: None, CPAP use (Has home oxygen for 2 L nasal cannula to use as needed. He typically does not need it with activity but just wears it at night.), Other (Also has Home O2) Neuro: reports: None Endocrine/Autoimmune: reports: Type 2 diabetes (just started Insulin 1 weeka go, per Pt) - Past Surgical History General: reports: Other (colonoscopy) Cardiovascular: reports: Pacemaker, Other (bilateral CEAs) - Family & Social History Family History: Mother: , Father: Family History Comment/Other: Diabetes and heart attacks run in the family, he stated. Living arrangement: Assisted living Living Situation: Alone Social History Notes: He quit smoking 40 years ago. He drinks 1 or 2 glasses of either wine or beer per week. He is responsible for his own medications at [place], not given by staff. - Substance History Use: Uses substance without health or social issues: NONE - POLST Patient has POLST: Yes POLST Status: Full Code Meds/Allgy - Home Medications Home Medications: Ambulatory Orders Medication Instructions Recorded Confirmed Carvedilol [Coreg] 25 mg PO BID 08/07/22 08/07/22 Furosemide [Lasix] 40 mg PO DAILY 08/07/22 08/07/22 Loratadine [Claritin] 10 mg PO DAILY 08/07/22 08/07/22 Pravastatin [Pravachol] 10 mg PO QPM 08/07/22 08/07/22 Tamsulosin [Flomax] 0.4 mg PO DAILY 08/07/22 08/07/22 Insulin Glargine [Lantus Solostar] 10 unit SUBQ QPM 08/08/22 08/08/22 Losartan Potassium [Cozaar] 100 mg PO DAILY 08/08/22 08/08/22 Tiotropium [place] [Spiriva 2 puffs INH DAILY 08/08/22 08/08/22 Respimat] - Allergies Allergies/Adverse Reactions: Allergies Allergy/AdvReac Type Severity Reaction Status Date / Time No Known Drug Allergies Allergy Verified 08/07/22 10:02 Exam - Vital Signs Vital Signs: Vital Signs x48h Temp Pulse Pulse Resp BP Pulse Ox O2 Flow Rate 08/10/22 16:57 37.0 C 60 18 128/50 L 98 15 08/10/22 13:53 79 19 15 08/10/22 11:20 36.7 C 83 18 123/58 L 90 L 15 - Physical Exam General Appearance: positive: Alert Eyes Bilateral: positive: PERRL, EOMI, No scleral icterus ENT: positive: No signs of dehydration Neck: positive: No JVD, Trachea midline Respiratory: positive: No respiratory distress Abdomen: positive: Non-tender, No distention, Other (currently hernia is reduced ngt clear) Conclusion/Plan - Problem List (1) N&V (nausea and vomiting) Conclusion/Plan: currently his right inguinal hernia is reduced. benign non tender non distended abdomen agree with past and present care I do not believe he has an intestinal or gastric blockage. he most likely has a diffuse ileus will follow. should be able to remove ngt soon, perhaps tomorrow - Lab Results Fish Bones: 08/10/22 04:34 08/10/22 04:34
--- NOTE | 2022-08-10 18:31 | CT Report ---
PROCEDURE: ABDOMEN WO INDICATIONS: persistent vomiting, abn CT abd sev days ago CONTRAST: 30 cc Gastrografin given via the NG tube. TECHNIQUE: After the administration of oral contrast, 5 mm thick sections acquired from the diaphragms to the il iac crests. 5 mm coronal and sagittal reformats were then performed. For radiation dose reduction, the following was used: automated exposure control, adjustment of mA and/or kV according to patient size. COMPARISON: 08/07/2022 FINDINGS: Image quality: Excellent. Lung bases: Interval development of dense left lower lobe consolidation with appearance of lobar atel ectasis. There is also dense posterior right lower lobe consolidation with new small effusion. Trace left pleural effusion. Pacemaker leads present in the heart. Moderate coronary artery calcification. Nasogastric tube traverses the visible esophagus. Solid organs: Liver, gallbladder, biliary system, pancreas, and adrenal glands appear normal. The cys tic mass arises from the posterior upper pole right kidney measuring 2.7 cm with Hounsfield units of approximately 20. No nephrolithiasis. Nonspecific bilateral perinephric fat stranding. There are rashmi ral punctate calcifications throughout the spleen. Peritoneum and bowel: The stomach is partially filled with Gastrografin. There is enteric contrast se en in several loops of distal small bowel and in the proximal colon. The terminal ileum appears mildl y diffusely narrowed and there may be slight wall thickening. A normal appendix is noted. An increase d quantity of solid stool is present in the colon. Diverticulosis of the distal descending and proxim al sigmoid colon there is a rectosigmoid anastomosis. The low pelvis was not imaged. No visible free fluid or free air in the abdomen. Nodes and vessels: No retroperitoneal or mesenteric adenopathy by size criteria. Aorta and inferior vena cava are normal in size. Heavy aortic calcification. Bones: No suspicious bony lesions. No vertebral body compression fractures. Miscellaneous: No ventral hernias. IMPRESSION: 1. Interval development of dense bibasilar opacities, potentially aspiration, mucous plugging, infect ious pneumonia, or a combination. 2. Enteric contrast is present in distal small bowel loops and proximal colon. This implies there is no complete gastric outlet obstruction. Partial obstruction is not excluded. 3. Questionable wall thickening and narrowing of the distal ileum raising possibility of inflammatory bowel disease. Correlate clinically. 4. Indeterminant cystic lesion arising from the upper pole right kidney, potentially proteinaceous cy st, but solid mass is not excluded. Consider follow-up renal protocol CT or MRI on a routine basis on ce patient's symptoms have resolved. Reviewed by: Lani Sethi MD on 08/10/2022 6:29 PM PST Approved by: Lani Sethi MD on 08/10/2022 6:29 PM [facility] Station ID: [id number]
--- NOTE | 2022-08-10 18:45 | PROVIDER PROGRESS NOTE ---
Assessment/Plan - Problem List (1) N&V (nausea and vomiting) Assessment/Plan: When he was sick at the [place] with 3 days of COVID, he had bloating, generalized abd pain and poor appetite but no nausea or vomiting. Two days ago he had 7 episodes of nausea and vomiting. Emesis was brown, had no coffee grounds. NPO ordered and NG tube placed yesterday. He has 200-600 cc of stomach fluid suctioned out per shift. His CT abd done at admission was reviewed. It showed a dilated stomach w/ air fluid levels, no other intestinal obstruction was reported. Plan: Continue ng tube for decompression, to low intermittent wall suction. Gen Surg consult ordered for further advice. Dr Castellanos recommended a repeat CT w/ barium. (2) Acute on chronic respiratory failure with hypoxemia Assessment/Plan: He has Home O2, but unclear if this is for CHF or COPD and if it is prn or to us e when. He claims it was ordered for COPD, but his only med for COPD is Respimat inhaler. He was admitted with marked desats, temporarily needed up to 15 L/min in ED and the cause appears to be his COVID pulmoinary infection. The CXR did not show any changes, but that was before he received significant fluids in the ED, given for hypotension and dehydration. Plan: Cont suppl O2, target sat 88%. We are treating the probable underlying Covid pneumonia and stopped iv fluids when we saw rise in BNP. Will restart slow iv fluids, while he is NPO. Will obtain an Echo to assure no systolic heart failure. Echo to be done today. (3) COVID-19 virus infection Conclusion/Plan: He first got a cough, then malaise and a poor appetite, then weakness and SOB. When he presented to ER he was tachypneic and in severe resp distress, and also described GI bloating and mild abd pain. Plan: Infectious isolation He has been started on Remdesivir and Decadron Because of his poor appetite and abdominal cramping, bloating and distention, we ordered clear liquid diet, then ordered ng tube for decompression (4) Near syncope Conclusion/Plan: He did have transient "soft" blood pressure that was documented. And, given the SUKHWINDER at admission, I suspect he had dehydration and was probably orthostatic which caused his near syncope before calling EMS. Telemetry has been stable, showing 100% paced rhythm Plan: We stop iv fluids today, given the rise in BNP. We ordered orthostatic VS checks Echo will be obtained. (5) History of CHF (congestive heart failure) Conclusion/Plan: We have no record if this is a systolic or diastolic heart failure history. BNP was normal at 45, on his first labwork. Then BNP elevated at 256. His repeat CXR showed either fluid or infiltrate. Plan: We ordered continuation with his usual cardiac meds, adding hold parameters if BP low. Will restart slow iv fluids today, given NPO status We will follow BNP daily for several days to assure it is not rising further Will obtain an Echo, to be done today. (6) Uncontrolled type 2 diabetes mellitus with insulin therapy Conclusion/Plan: (E11.65) The patient says he was on oral medicines for DM for years and has just been put on insulin 1 week ago. Then Pharmacy learned that he was on Insulin since May 2022, then for the past few days he was Hypoglycemic and they stopped the Insulin (that was probably when he had poor po intake as he developed his abdominal complaints and caught Covid). His glu here are running 300-400, probably from being on Decadron. His A1c came back at 8.6, indicating poor glu control. Plan: We started him on a clear liquid diet, now he is NPO because of N/V. When diet is advanced we will start carb controlled diet. Continue iv D5NS while NPO We ordered sliding scale insulin coverage and fingerstick checks and hypoglycemia protocol, will chenge to q6h now that he is NPO. (7) HARJINDER on CPAP Conclusion/Plan: As per history. Plan: Continue with his home CPAP device here or with O2 bled in (BIPAP) Target oxygen saturation will be 88% (8) COPD (chronic obstructive pulmonary disease) Conclusion/Plan: His medication list shows he is on Respimat. The patient's says his oxygen was ordered 6 years ago and it was for COPD Plan: Will continue with inhalers while here Continue steroids in the form of Decadron Will continue with supplemental O2, target saturation 88% (9) Acute kidney injury superimposed on CKD Conclusion/Plan: Likely from volume depletion when he had poor intake for 3 days before hospitalization, causing the acute elevation in BUN/creatinine Plan: Avoid nephrotoxins. He got iv hydration then we needed to stop it, given the CXR result and rise in BNP. Will restart slow iv fluids today Follow BMP daily (10) Pacemaker Conclusion/Plan: On his resting EKG he has 100% ventricular paced rhythm. Unknown if this is an AICD pacemaker or a plain pacemaker. He thinks it is a plain pacemaker. Plan: He was on telemetry for and we saw stable paced rhythm. Can stop telemetry today. (11) Poor memory There were many details that he gave incorrectly about his medical history. [place], but told me he alone is responsible for organizing and taking all his meds there. He thought Insulin was a new med x1 week, but he has been on it since May 2022 (3 mos). Unsure if he carries a Dx of Dementia or is on any meds for this. Plan: Will discuss with family or the [facility]. - Current Meds Current Meds: Current Medications Generic Name Dose Route Start Last Admin Trade Name Freq PRN Reason Stop Dose Admin Albuterol 2 puffs 08/07/22 22:00 08/10/22 13:55 Albuterol 1 Puff INH 2 puffs TID MEG Administration Carvedilol 25 mg 08/07/22 21:00 08/10/22 09:30 Carvedilol 12.5 Mg Tablet PO 25 mg BID MEG Administration Dexamethasone 6 mg 08/08/22 09:00 08/10/22 09:33 Dexamethasone 4 Mg/Ml Vial IVP 6 mg DAILY MEG Administration Enoxaparin Sodium 30 mg 08/08/22 09:00 08/10/22 09:34 Enoxaparin 30 Mg/0.3 Ml Syringe SUBQ 30 mg DAILY MEG Administration Guaifenesin 600 mg 08/07/22 21:00 08/10/22 09:38 Guaifenesin 600 Mg Tablet PO 600 mg BID MEG Administration Remdesivir 100 mg/ Sodium 100 mls @ 200 mls/hr 08/08/22 16:00 08/10/22 11:24 Chloride IV 08/11/22 09:29 Infused DAILY MEG Infusion Sodium Chloride 1,000 mls @ 0 mls/hr 08/09/22 14:00 08/09/22 14:50 Normal Saline 0.9% IV 30 mls/hr .Q0M MEG Administration TKO Insulin Glargine-yfgn 10 unit 08/09/22 21:00 08/09/22 22:15 Insulin Glargine-Yfgn 300 Unit/3 Ml Pen SUBQ 10 unit QPM MEG Administration Insulin Human Regular 1 - 9 unit 08/09/22 09:00 08/10/22 18:02 Insulin Regular Human 300 Unit/3 Ml Vial SUBQ 7 unit Q6HR MEG Administration Protocol Ipratropium [place] 0.5 mg 08/09/22 13:00 08/10/22 13:00 Ipratropium 0.2 Mg/Ml Neb INH 0.5 mg RTQ6H MEG Administration Loratadine 10 mg 08/08/22 09:00 08/10/22 09:34 Loratadine 10 Mg Tablet PO 10 mg DAILY MEG Administration Ondansetron HCl 4 mg 08/07/22 16:43 08/09/22 09:32 Ondansetron 4 Mg/2 Ml Vial IVP 4 mg Q6HR PRN Administration Nausea / Vomiting Pravastatin Sodium 10 mg 08/07/22 21:00 08/09/22 22:16 Pravastatin 10 Mg Tablet PO 10 mg QPM MEG Administration Simethicone 80 mg 08/08/22 07:25 08/08/22 11:28 Simethicone Chew 80 Mg Tablet PO 80 mg Q6HR PRN Administration Gas Sodium Chloride 10 ml 08/07/22 16:43 08/09/22 14:51 Sodium Chloride Flush 0.9% 10 Ml Syringe IVP 10 ml PRN PRN Administration NEEDED PER PROVIDER ORDERS Sodium Chloride 10 ml 08/07/22 17:00 08/10/22 17:55 Sodium Chloride Flush 0.9% 10 Ml Syringe IVP 10 ml 0100,0900,1700 MEG Administration Tamsulosin HCl 0.4 mg 08/08/22 09:00 08/10/22 09:37 Tamsulosin 0.4 Mg Capsule PO 0.4 mg DAILY MEG Administration - Lab Result Fish Bone Diagrams: 08/10/22 04:34 08/10/22 04:34 - Additional Planning My Orders: My Active Orders 08/09/22 21:00 Insulin Glargine-Yfgn [Semglee] 10 unit SUBQ QPM 08/10/22 17:31 Echo Transthoracic Complete [ECHO] Routine 08/11/22 05:00 BMP - BASIC METABOLIC PANEL [CHEM] DAILYLAB CBC - COMP BLD CT W/AUTO DIFF [HEME] DAILYLAB Subjective - Subjective Patient Reports: Other (No more vomiting since ng placed, which is suctioning up to 600 cc /shift. He is comfortable wearing his home CPAP unit nearly all day.) Objective Vital Signs: Vital Signs - 24 hr 08/09/22 08/09/22 08/10/22 19:10 21:45 00:00 Temperature 37.0 C Heart Rate 92 93 Heart Rate [ 93 Brachial] Respiratory 20 16 22 Rate Blood Pressure 137/43 H [Left Brachial artery] O2 Saturation 88 L If not protocol 5 15.5 15 : Oxygen Flow, liters/minute 08/10/22 08/10/22 08/10/22 00:21 05:00 08:00 Temperature 36.4 C L 36.5 C Heart Rate Heart Rate [ 86 92 96 Brachial] Respiratory 18 18 18 Rate Blood Pressure 110/56 L 120/60 109/46 L [Left Brachial artery] O2 Saturation 83 L 90 L 91 L If not protocol 15 15 15 : Oxygen Flow, liters/minute 08/10/22 08/10/22 08/10/22 09:18 09:20 11:20 Temperature 36.7 C Heart Rate 79 Heart Rate [ 83 Brachial] Respiratory 19 18 Rate Blood Pressure 123/58 L [Left Brachial artery] O2 Saturation 90 L If not protocol 15 15 15 : Oxygen Flow, liters/minute 08/10/22 08/10/22 13:53 16:57 Temperature 37.0 C Heart Rate 79 Heart Rate [ 60 Brachial] Respiratory 19 18 Rate Blood Pressure 128/50 L [Left Brachial artery] O2 Saturation 98 If not protocol 15 15 : Oxygen Flow, liters/minute Oxygen O2 Source Venturi mask I&O (Last 24 Hrs): Intake and Output Totals x24h 08/08/22 08/09/22 08/10/22 23:59 23:59 23:59 Intake Total 1531.333 140 480 Output Total 1050 1150 2800 Balance 481.333 1010 -2320 General: Alert, No acute distress (with CPAP on and NG to suction) HEENT: Mucous membr. moist/pink Neck: Supple Neuro: Alert, Non Focal, Other (Poor memory) Cardiovascular: No murmurs Respiratory: Rhonchi Abdomen: Soft, No tenderness Extremities: No clubbing, No edema - Results Results: Laboratory Results WBC 6.8 x10^3/uL (4.8-10.8) 08/10/22 04:34 RBC 3.67 10^6/uL (4.70-6.10) L 08/10/22 04:34 Hgb 10.9 g/dL (14.0-18.0) L 08/10/22 04:34 Hct 35.3 % (42.0-52.0) L 08/10/22 04:34 MCV 96.2 fL (80.0-94.0) H 08/10/22 04:34 MCH 29.7 pg (27.0-31.0) 08/10/22 04:34 MCHC 30.9 g/dL (32.0-36.0) L 08/10/22 04:34 RDW 13.6 % (12.0-15.0) 08/10/22 04:34 Plt Count 217 10^3/uL (130-450) 08/10/22 04:34 MPV 10.2 fL (7.4-11.4) 08/10/22 04:34 Neut # (Auto) 5.5 10^3/uL (1.5-6.6) 08/10/22 04:34 Lymph # (Auto) 0.4 10^3/uL (1.5-3.5) L 08/10/22 04:34 [place] # (Auto) 0.9 10^3/uL (0.0-1.0) 08/10/22 04:34 Eos # (Auto) 0.0 10^3/uL (0.0-0.7) 08/10/22 04:34 Baso # (Auto) 0.0 10^3/uL (0.0-0.1) 08/10/22 04:34 Absolute Nucleated RBC 0.00 x10^3/uL 08/10/22 04:34 Nucleated RBC % 0.0 /100WBC 08/10/22 04:34 Sodium 149 mmol/L (135-145) H 08/10/22 04:34 Potassium 3.9 mmol/L (3.5-5.0) 08/10/22 04:34 Chloride 102 mmol/L (101-111) 08/10/22 04:34 Carbon Dioxide 37 mmol/L (21-32) H 08/10/22 04:34 Anion Gap 10.0 (6-13) 08/10/22 04:34 BUN 93 mg/dL (6-20) H* 08/10/22 04:34 Creatinine 2.1 mg/dL (0.6-1.2) H 08/10/22 04:34 Estimated GFR (MDRD) 30 (>89) L 08/10/22 04:34 Glucose 208 mg/dL (70-100) H 08/10/22 04:34 Estimat Average Glucose 200 mg/dL (70-100) H 08/09/22 06:32 Hemoglobin A1c % 8.6 % (4.27-6.07) H 08/09/22 06:32 Calcium 9.1 mg/dL (8.5-10.3) 08/10/22 04:34 Magnesium 2.6 mg/dL (1.7-2.8) 08/07/22 10:11 Total Bilirubin 0.9 mg/dL (0.2-1.0) 08/07/22 10:11 AST 14 IU/L (10-42) 08/07/22 10:11 ALT 23 IU/L (10-60) 08/07/22 10:11 Alkaline Phosphatase 53 IU/L (42-121) 08/07/22 10:11 B-Natriuretic Peptide 151 pg/mL (5-100) H 08/10/22 04:34 Total Protein 7.1 g/dL (6.7-8.2) 08/07/22 10:11 Albumin 3.3 g/dL (3.2-5.5) 08/07/22 10:11 Globulin 3.8 g/dL (2.1-4.2) 08/07/22 10:11 Albumin/Globulin Ratio 0.9 (1.0-2.2) L 08/07/22 10:11 Lipase 83 U/L (22-51) H 08/07/22 10:11 Nasal Adenovirus (PCR) NOT DETECTED 08/07/22 13:32 Nasal B. parapertussis DNA (PCR) NOT DETECTED 08/07/22 13:32 Nasal Coronavir 229E PCR NOT DETECTED 08/07/22 13:32 Nasal Coronavir HKU1 PCR NOT DETECTED 08/07/22 13:32 Nasal Coronavir NL63 PCR NOT DETECTED 08/07/22 13:32 Nasal Coronavir OC43 PCR NOT DETECTED 08/07/22 13:32 Nasal Enterovir/Rhinovir PCR NOT DETECTED 08/07/22 13:32 Nasal Influenza B PCR NOT DETECTED 08/07/22 13:32 Nasal Influenza A PCR NOT DETECTED 08/07/22 13:32 Nasal Parainfluen 1 PCR NOT DETECTED 08/07/22 13:32 Nasal Parainfluen 2 PCR NOT DETECTED 08/07/22 13:32 Nasal Parainfluen 3 PCR NOT DETECTED 08/07/22 13:32 Nasal Parainfluen 4 PCR NOT DETECTED 08/07/22 13:32 Nasal RSV (PCR) NOT DETECTED 08/07/22 13:32 Nasal B.pertussis DNA PCR NOT DETECTED 08/07/22 13:32 Nasal C.pneumoniae (PCR) NOT DETECTED 08/07/22 13:32 Storm Human Metapneumo PCR NOT DETECTED 08/07/22 13:32 Nasal M.pneumoniae (PCR) NOT DETECTED 08/07/22 13:32 Nasal SARS-CoV-2 (PCR) DETECTED A 08/07/22 13:32
[2022-08-10] MEDS: INSULIN GLARGINE-YFGN 300 UNIT/3 ML PEN SUBQ SCH (20:59)
[2022-08-10] MEDS: PRAVASTATIN 10 MG TABLET PO SCH (21:01)
[2022-08-11] MEDS: INSULIN REGULAR HUMAN 300 UNIT/3 ML VIAL SUBQ SCH ×4 (00:15→18:12)
[2022-08-11] MEDS: SODIUM CHLORIDE FLUSH 0.9% 10 ML SYRINGE IVP SCH ×3 (00:18→19:30)
[2022-08-11] MEDS: IPRATROPIUM 0.2 MG/ML NEB INH SCH ×4 (03:21→18:40)
[2022-08-11 05:16] LABS: BASOPHILS % (AUTO) 0.1 %; HGB - HEMOGLOBIN 11.5 g/dL (14.0-18.0); LYMPHOCYTES # (AUTO) 0.4 10^3/uL (1.5-3.5); LYMPHOCYTES % (AUTO) 5.4 %; MEAN CORPUSCULAR HEMOGLOBIN 29.3 pg (27.0-31.0); MEAN CORPUSCULAR HGB CONC 30.3 g/dL (32.0-36.0); MEAN CORPUSCULAR VOLUME 96.9 fL (80.0-94.0); MEAN PLATELET VOLUME 9.8 fL (7.4-11.4); MONOCYTES # (AUTO) 0.9 10^3/uL (0.0-1.0); NEUTROPHILS # (AUTO) 5.6 10^3/uL (1.5-6.6); NEUTROPHILS % (AUTO) 81.2 %; PLT - PLATELET COUNT 220 10^3/uL (130-450); RED BLOOD COUNT 3.92 10^6/uL (4.70-6.10); RED CELL DISTRIBUTION WIDTH 13.4 % (12.0-15.0); WHITE BLOOD COUNT 6.8 x10^3/uL (4.8-10.8)
[2022-08-11 05:33] LABS: CALCIUM 8.9 mg/dL (8.5-10.3); POTASSIUM 3.8 mmol/L (3.5-5.0)
[2022-08-11] MEDS: ALBUTEROL 1 PUFF INH SCH ×3 (05:59→20:02)
[2022-08-11] MEDS: DEXAMETHASONE 4 MG/ML VIAL IVP SCH (07:59)
[2022-08-11] MEDS: ENOXAPARIN 30 MG/0.3 ML SYRINGE SUBQ SCH (08:00)
[2022-08-11] MEDS: carvediloL 12.5 MG TABLET PO SCH ×2 (08:00→21:15)
[2022-08-11] MEDS: LORATADINE 10 MG TABLET PO SCH (08:00)
[2022-08-11] MEDS: guaiFENesin 600 MG TABLET PO SCH ×2 (08:00→21:15)
[2022-08-11] MEDS: TAMSULOSIN 0.4 MG CAPSULE PO SCH (08:00)
--- NOTE | 2022-08-11 08:17 | PROVIDER PROGRESS NOTE ---
Assessment/Plan - Problem List (1) N&V (nausea and vomiting) Assessment/Plan: When he felt sick at the [facility] with 3 days of cough (from COVID), he also had bloating, generalized abd pain and poor appetite but no nausea or vomiting. Several days ago he had 7 episodes of nausea and vomiting. Emesis was brown, had no coffee grounds. NPO was then ordered and NG tube placed. He had 200-600 cc of stomach fluid suctioned out per shift on 08/10. His CT abd done at admission was reviewed. It showed a dilated stomach w/ air fluid levels, no other intestinal obstruction was reported. Gen Surg consult done yesterday 08/10, and Dr Castellanos advised repeating CT abd using barium given per ng. This CT did show some dye entering all the way to colon. Thus the Gen Surgeon's impression was that pt has an ileus. Plan: Will change order of ng tube for decompression at low intermittent wall suction, to order for clamp ng and check residual, to see if it can be remove. (2) Aspiration PNA Today his O2 needs have increased and he is tachypneic. Thus a CXR was ordered and it shows a new aspiration PNA. This probably happened when he had all the episodes of vomiting 2 days ago. Plan: Will start Unasyn iv (3) Acute on chronic respiratory failure with hypoxemia Assessment/Plan: He has Home O2, but unclear if this is for CHF or COPD and if it is prn or to use when. He claims it was ordered for COPD, but his only med for COPD is Respimat inhaler. He was admitted with marked desats, temporarily needed up to 15 L/min in ED and the cause appears to be his COVID pulmoinary infection. The CXR did not show any changes, but that was before he received significant fluids in the ED, given for hypotension and dehydration. Today his O2 needs have increased and he is tachypneic. Thius a CXR was ordered and it shows a new aspiration PNA Plan: Cont suppl O2, target sat 88%. We are treating the probable underlying Covid pneumonia and stopped iv fluids when we saw rise in BNP. Will add Unasyn iv today (4) COVID-19 virus infection Conclusion/Plan: He first got a cough, then malaise and a poor appetite, then weakness and SOB. When he presented to ER he was tachypneic and in severe resp distress, and also described GI bloating and mild abd pain. Plan: Infectious isolation He has been started on Remdesivir and Decadron Because of his poor appetite and abdominal cramping, bloating and distention, we ordered clear liquid diet, then ordered ng tube for decompression (5) Hypernatremia He is NPO and was getting iv NS at TKO, since iv NS was decreased when abn CXR. Plan: Will stop NS Will change to D5 1/2NS at 50 cc/hr. Follow BMP daily (6) History of CHF (congestive heart failure) Conclusion/Plan: We have no record if this is a systolic or diastolic heart failure history. BNP was normal at 45, on his first labwork. Then BNP elevated at 256. His repeat CXR showed either fluid or infiltrate. Echo was done yesterday 08/10 and it showed LVEF of 55% and diastolic dysfunction could not be ruled out. Plan: We ordered continuation with his usual cardiac meds, adding hold parameters if BP low. We will follow BNP intermittently Will change NS at TKO to D5 1/2NS at 50 cc/hr. (7) Uncontrolled type 2 diabetes mellitus with insulin therapy Conclusion/Plan: (E11.65) The patient says he was on oral medicines for DM for years and has just been put on insulin 1 week ago. Then Pharmacy learned that he was on Insulin since May 2022, then for the past few days he was Hypoglycemic and they stopped the Insulin (that was probably when he had poor po intake as he developed his abdominal complaints and caught Covid). His glu here are running 300-400, probably from being on Decadron. His A1c came back at 8.6, indicating poor glu control. Plan: We started him on a clear liquid diet, now he is NPO because of N/V. When diet is advanced we will start carb controlled diet. Continue iv D5NS while NPO We ordered sliding scale insulin coverage and fingerstick checks and hypoglycemia protocol, will chenge to q6h now that he is NPO. (8) HARJINDER on CPAP Conclusion/Plan: As per history. Plan: Continue with his home CPAP device here or with O2 bled in (BIPAP) Target oxygen saturation will be 88% (9) COPD (chronic obstructive pulmonary disease) Conclusion/Plan: His medication list shows he is on Respimat. The patient's says his oxygen was ordered 6 years ago and it was for COPD Plan: Will continue with inhalers while here Continue steroids in the form of Decadron Will continue with supplemental O2, target saturation 88% (10) Acute kidney injury superimposed on CKD Conclusion/Plan: Likely from volume depletion when he had poor intake for 3 days before hospitalization, causing the acute elevation in BUN/creatinine Plan: Avoid nephrotoxins. He got iv hydration then we needed to stop it, given the CXR result and rise in BNP. Will restart slow iv fluids today Follow BMP daily (11) Near syncope Conclusion/Plan: He did have transient "soft" blood pressure that was documented. And, given the SUKHWINDER at admission, I suspect he had dehydration and was probably orthostatic which caused his near syncope before calling EMS. Telemetry has been stable, showing 100% paced rhythm Echo showed LVEF of 55% and diastolic dysfunction could not be ruled out. Plan: We stop iv fluids today, given the rise in BNP. We ordered orthostatic VS checks (12) Pacemaker Conclusion/Plan: On his resting EKG he has 100% ventricular paced rhythm. Unknown if this is an AICD pacemaker or a plain pacemaker. He thinks it is a plain pacemaker. Plan: He was on telemetry for and we saw stable paced rhythm. Can stop telemetry today. (13) Poor memory There were many details that he gave incorrectly about his medical history. He does live in an [place], but told me he alone is responsible for organizing and taking all his meds there. He thought Insulin was a new med x1 week, but he has been on it since May 2022 (3 mos). Unsure if he carries a Dx of Dementia or is on any meds for this. Plan: Will discuss with family or the [place]. - Current Meds Current Meds: Current Medications Generic Name Dose Route Start Last Admin Trade Name Teofiloq PRN Reason Stop Dose Admin Albuterol 2 puffs 08/07/22 22:00 08/11/22 05:59 Albuterol 1 Puff INH 2 puffs TID MEG Administration Carvedilol 25 mg 08/07/22 21:00 08/11/22 08:00 Carvedilol 12.5 Mg Tablet PO 25 mg BID MEG Administration Dexamethasone 6 mg 08/08/22 09:00 08/11/22 07:59 Dexamethasone 4 Mg/Ml Vial IVP 6 mg DAILY MEG Administration Enoxaparin Sodium 30 mg 08/08/22 09:00 08/11/22 08:00 Enoxaparin 30 Mg/0.3 Ml Syringe SUBQ 30 mg DAILY MEG Administration Guaifenesin 600 mg 08/07/22 21:00 08/11/22 08:00 Guaifenesin 600 Mg Tablet PO 600 mg BID MEG Administration Remdesivir 100 mg/ Sodium 100 mls @ 200 mls/hr 08/08/22 16:00 08/10/22 11:24 Chloride IV 08/11/22 09:29 Infused DAILY MEG Infusion Insulin Glargine-yfgn 10 unit 08/09/22 21:00 08/10/22 20:59 Insulin Glargine-Yfgn 300 Unit/3 Ml Pen SUBQ 10 unit QPM MEG Administration Insulin Human Regular 1 - 9 unit 08/09/22 09:00 08/11/22 06:03 Insulin Regular Human 300 Unit/3 Ml Vial SUBQ 3 unit Q6HR MEG Administration Protocol Ipratropium [place] 0.5 mg 08/09/22 13:00 08/11/22 05:58 Ipratropium 0.2 Mg/Ml Neb INH 0.5 mg RTQ6H MEG Administration Loratadine 10 mg 08/08/22 09:00 08/11/22 08:00 Loratadine 10 Mg Tablet PO 10 mg DAILY MEG Administration Ondansetron HCl 4 mg 08/07/22 16:43 08/09/22 09:32 Ondansetron 4 Mg/2 Ml Vial IVP 4 mg Q6HR PRN Administration Nausea / Vomiting Pravastatin Sodium 10 mg 08/07/22 21:00 08/10/22 21:01 Pravastatin 10 Mg Tablet PO 10 mg QPM MEG Administration Simethicone 80 mg 08/08/22 07:25 08/08/22 11:28 Simethicone Chew 80 Mg Tablet PO 80 mg Q6HR PRN Administration Gas Sodium Chloride 10 ml 08/07/22 16:43 08/09/22 14:51 Sodium Chloride Flush 0.9% 10 Ml Syringe IVP 10 ml PRN PRN Administration NEEDED PER PROVIDER ORDERS Sodium Chloride 10 ml 08/07/22 17:00 08/11/22 07:59 Sodium Chloride Flush 0.9% 10 Ml Syringe IVP 10 ml 0100,0900,1700 MEG Administration Tamsulosin HCl 0.4 mg 08/08/22 09:00 08/11/22 08:00 Tamsulosin 0.4 Mg Capsule PO 0.4 mg DAILY MEG Administration - Lab Result Fish Bone Diagrams: 08/11/22 04:34 08/11/22 04:34 - Additional Planning My Orders: My Active Orders 08/10/22 17:31 Echo Transthoracic Complete [ECHO] Routine 08/11/22 09:00 Dextrose 5%-0.45% NaCl [D5.45ns] 1,000 ml IV 50 mls/hr Subjective - Subjective Patient Reports: Shortness of Breath (More SOB and tachypneic. RT had to increase his FIO2 to 40L, 70% HiFlow.) Objective Vital Signs: Vital Signs - 24 hr 08/10/22 08/10/22 08/10/22 09:18 09:20 11:20 Temperature 36.7 C Heart Rate 79 Heart Rate [ 83 Brachial] Respiratory 19 18 Rate Blood Pressure 123/58 L [Left Brachial artery] O2 Saturation 90 L If not protocol 15 15 15 : Oxygen Flow, liters/minute 08/10/22 08/10/22 08/10/22 13:53 16:57 21:00 Temperature 37.0 C 36.5 C Heart Rate 79 Heart Rate [ 60 94 Brachial] Respiratory 19 18 18 Rate Blood Pressure 128/50 L 131/67 H [Left Brachial artery] O2 Saturation 98 94 If not protocol 15 15 15 : Oxygen Flow, liters/minute 08/10/22 08/11/22 08/11/22 23:15 00:22 04:22 Temperature 36.7 C 36.3 C L Heart Rate 70 Heart Rate [ 90 50 L Brachial] Respiratory 22 16 18 Rate Blood Pressure 156/56 H 140/39 H [Left Brachial artery] O2 Saturation 95 94 If not protocol 15 15 15 : Oxygen Flow, liters/minute 08/11/22 08/11/22 05:59 07:51 Temperature 36.5 C Heart Rate 43 L Heart Rate [ 82 Brachial] Respiratory 18 16 Rate Blood Pressure 125/57 L [Left Brachial artery] O2 Saturation 96 If not protocol 15 15 : Oxygen Flow, liters/minute Oxygen O2 Source Oxymizer I&O (Last 24 Hrs): Intake and Output Totals x24h 08/09/22 08/10/22 08/11/22 23:59 23:59 23:59 Intake Total 505 632 5975 Output Total 1150 3600 1575 Balance -1010 -0200 455 General: Mild distress (Is tachypneic and diaphoretic, but lying nearly supine. Has on HiFlow mask and ng tube in place) HEENT: Other (Cannt eval with HiFlow mask on face, large coles and ng tube in place.) Neck: Other (Cannot eval JVP with mask, ng tube and large coles) Neuro: Alert, Non Focal Cardiovascular: Regular rate Respiratory: Rhonchi Abdomen: Soft (has ng tube in place) Extremities: Other (Trace edema) - Results Results: Laboratory Results WBC 6.8 x10^3/uL (4.8-10.8) 08/11/22 04:34 RBC 3.92 10^6/uL (4.70-6.10) L 08/11/22 04:34 Hgb 11.5 g/dL (14.0-18.0) L 08/11/22 04:34 Hct 38.0 % (42.0-52.0) L 08/11/22 04:34 MCV 96.9 fL (80.0-94.0) H 08/11/22 04:34 MCH 29.3 pg (27.0-31.0) 08/11/22 04:34 MCHC 30.3 g/dL (32.0-36.0) L 08/11/22 04:34 RDW 13.4 % (12.0-15.0) 08/11/22 04:34 Plt Count 220 10^3/uL (130-450) 08/11/22 04:34 MPV 9.8 fL (7.4-11.4) 08/11/22 04:34 Neut # (Auto) 5.6 10^3/uL (1.5-6.6) 08/11/22 04:34 Lymph # (Auto) 0.4 10^3/uL (1.5-3.5) L 08/11/22 04:34 [place] # (Auto) 0.9 10^3/uL (0.0-1.0) 08/11/22 04:34 Eos # (Auto) 0.0 10^3/uL (0.0-0.7) 08/11/22 04:34 Baso # (Auto) 0.0 10^3/uL (0.0-0.1) 08/11/22 04:34 Absolute Nucleated RBC 0.00 x10^3/uL 08/11/22 04:34 Nucleated RBC % 0.0 /100WBC 08/11/22 04:34 Sodium 153 mmol/L (135-145) H 08/11/22 04:34 Potassium 3.8 mmol/L (3.5-5.0) 08/11/22 04:34 Chloride 101 mmol/L (101-111) 08/11/22 04:34 Carbon Dioxide 40 mmol/L (21-32) H* 08/11/22 04:34 Anion Gap 12.0 (6-13) 08/11/22 04:34 BUN 85 mg/dL (6-20) H* 08/11/22 04:34 Creatinine 2.0 mg/dL (0.6-1.2) H 08/11/22 04:34 Estimated GFR (MDRD) 32 (>89) L 08/11/22 04:34 Glucose 227 mg/dL (70-100) H 08/11/22 04:34 Estimat Average Glucose 200 mg/dL (70-100) H 08/09/22 06:32 Hemoglobin A1c % 8.6 % (4.27-6.07) H 08/09/22 06:32 Calcium 8.9 mg/dL (8.5-10.3) 08/11/22 04:34 Magnesium 2.6 mg/dL (1.7-2.8) 08/07/22 10:11 Total Bilirubin 0.9 mg/dL (0.2-1.0) 08/07/22 10:11 AST 14 IU/L (10-42) 08/07/22 10:11 ALT 23 IU/L (10-60) 08/07/22 10:11 Alkaline Phosphatase 53 IU/L (42-121) 08/07/22 10:11 B-Natriuretic Peptide 151 pg/mL (5-100) H 08/10/22 04:34 Total Protein 7.1 g/dL (6.7-8.2) 08/07/22 10:11 Albumin 3.3 g/dL (3.2-5.5) 08/07/22 10:11 Globulin 3.8 g/dL (2.1-4.2) 08/07/22 10:11 Albumin/Globulin Ratio 0.9 (1.0-2.2) L 08/07/22 10:11 Lipase 83 U/L (22-51) H 08/07/22 10:11 Nasal Adenovirus (PCR) NOT DETECTED 08/07/22 13:32 Nasal B. parapertussis DNA (PCR) NOT DETECTED 08/07/22 13:32 Nasal Coronavir 229E PCR NOT DETECTED 08/07/22 13:32 Nasal Coronavir HKU1 PCR NOT DETECTED 08/07/22 13:32 Nasal Coronavir NL63 PCR NOT DETECTED 08/07/22 13:32 Nasal Coronavir OC43 PCR NOT DETECTED 08/07/22 13:32 Nasal Enterovir/Rhinovir PCR NOT DETECTED 08/07/22 13:32 Nasal Influenza B PCR NOT DETECTED 08/07/22 13:32 Nasal Influenza A PCR NOT DETECTED 08/07/22 13:32 Nasal Parainfluen 1 PCR NOT DETECTED 08/07/22 13:32 Nasal Parainfluen 2 PCR NOT DETECTED 08/07/22 13:32 Nasal Parainfluen 3 PCR NOT DETECTED 08/07/22 13:32 Nasal Parainfluen 4 PCR NOT DETECTED 08/07/22 13:32 Nasal RSV (PCR) NOT DETECTED 08/07/22 13:32 Nasal B.pertussis DNA PCR NOT DETECTED 08/07/22 13:32 Nasal C.pneumoniae (PCR) NOT DETECTED 08/07/22 13:32 Storm Human Metapneumo PCR NOT DETECTED 08/07/22 13:32 Nasal M.pneumoniae (PCR) NOT DETECTED 08/07/22 13:32 Nasal SARS-CoV-2 (PCR) DETECTED A 08/07/22 13:32
[2022-08-11] MEDS: ACETAMINOPHEN 325 MG TABLET PO PRN (09:03)
[2022-08-11] MEDS: DEXTROSE 5%-0.45% NACL 1,000 ML IV SCH (09:05)
[2022-08-11] MEDS: REMDESIVIR 100MG VIAL 100 MG in SODIUM CHLORIDE 0.9% 100ML 100 ML IV SCH (09:06)
--- NOTE | 2022-08-11 10:07 | PROVIDER PROGRESS NOTE ---
Subjective - Subjective Pt reports feeling: No change Objective - Vital Signs/Intake & Output Reviewed Vital Signs: Yes Vital Signs: Vital Signs x48h Temp Pulse Pulse Resp BP Pulse Ox O2 Flow Rate 08/11/22 07:51 36.5 C 82 16 125/57 L 96 15 08/11/22 05:59 43 L 18 15 08/11/22 04:22 36.3 C L 50 L 18 140/39 H 94 15 Intake & Output: Intake & Output 08/08/22 08/09/22 08/10/22 08/11/22 23:59 23:59 23:59 23:59 Intake Total 1531.333 390 341 3081 Output Total 1050 1150 3600 1575 Balance 481.369 -7400 -1966 455 - Objective General Appearance: positive: No acute distress, Alert Respiratory: positive: No respiratory distress Abdomen: positive: No distention, Other (continues with significant amount thin ngt output no bm recorded) - Lab Results Fish Bones: 08/11/22 04:34 08/11/22 04:34 Other Labs: Lab Results x24hrs 08/11/22 08/11/22 Range/Units 04:34 04:34 WBC 6.8 (4.8-10.8) x10^3/uL RBC 3.92 L (4.70-6.10) 10^6/uL Hgb 11.5 L (14.0-18.0) g/dL Hct 38.0 L (42.0-52.0) % MCV 96.9 H (80.0-94.0) fL MCH 29.3 (27.0-31.0) pg MCHC 30.3 L (32.0-36.0) g/dL RDW 13.4 (12.0-15.0) % Plt Count 220 (130-450) 10^3/uL MPV 9.8 (7.4-11.4) fL Neut # (Auto) 5.6 (1.5-6.6) 10^3/uL Lymph # (Auto) 0.4 L (1.5-3.5) 10^3/uL [place] # (Auto) 0.9 (0.0-1.0) 10^3/uL Eos # (Auto) 0.0 (0.0-0.7) 10^3/uL Baso # (Auto) 0.0 (0.0-0.1) 10^3/uL Absolute Nucleated RBC 0.00 x10^3/uL Nucleated RBC % 0.0 /100WBC Sodium 153 H (135-145) mmol/L Potassium 3.8 (3.5-5.0) mmol/L Chloride 101 (101-111) mmol/L Carbon Dioxide 40 H* (21-32) mmol/L Anion Gap 12.0 (6-13) BUN 85 H* (6-20) mg/dL Creatinine 2.0 H (0.6-1.2) mg/dL Estimated GFR (MDRD) 32 L (>89) Glucose 227 H (70-100) mg/dL Calcium 8.9 (8.5-10.3) mg/dL Assessment/Plan - Problem List (1) N&V (nausea and vomiting) Impression: ileus. agree with care and plan. no obstruction clinically or by imaging ok to clamp ngt and check residuals. hopefully ngt can come out by tomorrow and very slowly advance diet
--- NOTE | 2022-08-11 11:48 | XRAY Report ---
PROCEDURE: Chest 1 View X-Ray INDICATIONS: Worsening SOB hypoxia, Covid pneumonia TECHNIQUE: One view of the chest was acquired. COMPARISON: Single view the chest dated 08/09/2022 FINDINGS: Surgical changes and devices: NG tube and cardiac pacer are unchanged. Lungs and pleura: Lung volumes are low. Linear radiopacities are present at the bilateral lung bases . Small effusions cannot be excluded. Mediastinum: Mediastinal contours appear normal. Heart size is normal. Bones and chest wall: No suspicious bony lesions. Overlying soft tissues appear unremarkable. IMPRESSION: Lung volumes and probable basilar atelectasis although aspiration/infection could also be considered in the differential. Reviewed by: Patricia Rahman MD on 08/11/2022 11:46 AM PST Approved by: Patricia Rahman MD on 08/11/2022 11:46 AM PST Station ID: [id number]
[2022-08-11] MEDS: AMPICILLIN/SULBACTAM 3 GM in SODIUM CHLORIDE 0.9% MINIBAG 100 ML IV SCH (18:07)
[2022-08-11] MEDS: INSULIN GLARGINE-YFGN 300 UNIT/3 ML PEN SUBQ SCH (21:12)
[2022-08-11] MEDS: PRAVASTATIN 10 MG TABLET PO SCH (21:15)
[2022-08-12] MEDS: INSULIN REGULAR HUMAN 300 UNIT/3 ML VIAL SUBQ SCH ×4 (00:37→18:07)
[2022-08-12] MEDS: ACETAMINOPHEN 325 MG TABLET PO PRN (01:31)
[2022-08-12] MEDS: SODIUM CHLORIDE FLUSH 0.9% 10 ML SYRINGE IVP SCH ×3 (01:38→18:17)
[2022-08-12] MEDS: DEXTROSE 5%-0.45% NACL 1,000 ML IV SCH ×2 (06:34→10:01)
[2022-08-12] MEDS: AMPICILLIN/SULBACTAM 3 GM in SODIUM CHLORIDE 0.9% MINIBAG 100 ML IV SCH ×2 (06:35→17:09)
[2022-08-12] MEDS: SODIUM CHLORIDE FLUSH 0.9% 10 ML SYRINGE IVP PRN (06:35)
[2022-08-12 08:06] LABS: BASOPHILS % (AUTO) 0.1 %; HCT - HEMATOCRIT 40.7 % (42.0-52.0); HGB - HEMOGLOBIN 12.2 g/dL (14.0-18.0); LYMPHOCYTES # (AUTO) 0.4 10^3/uL (1.5-3.5); LYMPHOCYTES % (AUTO) 4.8 %; MEAN CORPUSCULAR HEMOGLOBIN 29.5 pg (27.0-31.0); MEAN CORPUSCULAR VOLUME 98.5 fL (80.0-94.0); MONOCYTES # (AUTO) 0.8 10^3/uL (0.0-1.0); MONOCYTES % (AUTO) 9.9 %; NEUTROPHILS # (AUTO) 7.1 10^3/uL (1.5-6.6); NEUTROPHILS % (AUTO) 84.7 %; PLT - PLATELET COUNT 237 10^3/uL (130-450); RED BLOOD COUNT 4.13 10^6/uL (4.70-6.10); RED CELL DISTRIBUTION WIDTH 13.5 % (12.0-15.0); WHITE BLOOD COUNT 8.4 x10^3/uL (4.8-10.8)
[2022-08-12 08:17] LABS: CALCIUM 8.4 mg/dL (8.5-10.3); CHLORIDE 97 mmol/L (101-111); CREATININE 2.3 mg/dL (0.6-1.2); GFR - MDRD 27 (>89); GLUCOSE 282 mg/dL (70-100); POTASSIUM 3.3 mmol/L (3.5-5.0); SODIUM 153 mmol/L (135-145)
[2022-08-12 08:21] LABS: BUN - BLOOD UREA NITROGEN 91 mg/dL (6-20); CARBON DIOXIDE - CO2 > 45 mmol/L (21-32)
[2022-08-12] MEDS: IPRATROPIUM 0.2 MG/ML NEB INH SCH ×2 (09:17→14:35)
[2022-08-12] MEDS: ONDANSETRON 4 MG/2 ML VIAL IVP PRN (09:55)
[2022-08-12] MEDS: carvediloL 12.5 MG TABLET PO SCH ×2 (09:57→20:52)
[2022-08-12] MEDS: DEXAMETHASONE 4 MG/ML VIAL IVP SCH (09:57)
[2022-08-12] MEDS: CHLORHEXIDINE GLUCONATE 15 ML UDC PO SCH ×2 (09:57→20:51)
[2022-08-12] MEDS: guaiFENesin 600 MG TABLET PO SCH ×2 (09:57→21:52)
[2022-08-12] MEDS: ENOXAPARIN 30 MG/0.3 ML SYRINGE SUBQ SCH (09:59)
[2022-08-12] MEDS: LORATADINE 10 MG TABLET PO SCH (10:02)
[2022-08-12] MEDS: TAMSULOSIN 0.4 MG CAPSULE PO SCH (10:03)
[2022-08-12] MEDS ORDERED: DEXTROSE 5%-0.45% NACL 1,000 ML IV SCH (12:26)
[2022-08-12] MEDS: ALBUTEROL 1 PUFF INH SCH ×2 (14:34→14:35)
[2022-08-12] MEDS: METOCLOPRAMIDE 10 MG/2 ML VIAL IVP SCH (17:08)
--- NOTE | 2022-08-12 19:43 | PROVIDER PROGRESS NOTE ---
Subjective - Subjective Pt reports feeling: Worse (His O2 saturations worsened after midnight last night despite being on high flow supplemental O2. He was moved into the ICU at 04 100 and started on BiPAP, still has his NG tube which is draining up to 400 cc per shift) Objective - Vital Signs/Intake & Output Reviewed Vital Signs: Yes Vital Signs: Vital Signs Pulse Pulse Resp BP Pulse Ox 08/12/22 19:15 90 08/12/22 19:00 86 19 99/50 L 94 08/12/22 18:00 87 19 114/16 L 94 08/12/22 17:00 90 20 95/41 L 95 08/12/22 16:00 82 18 114/45 L 94 Intake & Output: Intake & Output 08/09/22 08/10/22 08/11/22 08/12/22 23:59 23:59 23:59 23:59 Intake Total 390 858 5039 1290 Output Total 1150 3600 3200 1600 Balance -1010 -2730 -1070 -310 - Objective General Appearance: positive: Mild distress, Other (He appears disheveled and has a large coles.) Eyes Bilateral: positive: Normal inspection ENT: positive: Other (Cannot eval with BIPAP mask on, ng tube in, and large coles) Neck: positive: Other (Cannot eval JVP with BIPAP mask and ng tube in place) Respiratory: positive: Other (Diminished) Cardiovascular: positive: Regular rate & rhythm Abdomen: positive: Nml bowel sounds Skin: positive: Warm Extremities: positive: Non-tender, No pedal edema Neurologic/Psychiatric: positive: Weakness (of R arm from old stroke) - Lab Results Fish Bones: 08/12/22 07:58 08/12/22 07:58 Other Labs: Lab Results x24hrs 08/12/22 08/12/22 08/12/22 Range/Units 07:58 07:58 04:20 WBC 8.4 (4.8-10.8) x10^3/uL RBC 4.13 L (4.70-6.10) 10^6/uL Hgb 12.2 L (14.0-18.0) g/dL Hct 40.7 L (42.0-52.0) % MCV 98.5 H (80.0-94.0) fL MCH 29.5 (27.0-31.0) pg MCHC 30.0 L (32.0-36.0) g/dL RDW 13.5 (12.0-15.0) % Plt Count 237 (130-450) 10^3/uL MPV 10.0 (7.4-11.4) fL Neut # (Auto) 7.1 H (1.5-6.6) 10^3/uL Lymph # (Auto) 0.4 L (1.5-3.5) 10^3/uL [place] # (Auto) 0.8 (0.0-1.0) 10^3/uL Eos # (Auto) 0.0 (0.0-0.7) 10^3/uL Baso # (Auto) 0.0 (0.0-0.1) 10^3/uL Absolute Nucleated RBC 0.00 x10^3/uL Nucleated RBC % 0.0 /100WBC Sodium 153 H (135-145) mmol/L Potassium 3.3 L (3.5-5.0) mmol/L Chloride 97 L (101-111) mmol/L Carbon Dioxide > 45 H* (21-32) mmol/L Anion Gap 11.0 (6-13) BUN 91 H* (6-20) mg/dL Creatinine 2.3 H (0.6-1.2) mg/dL Estimated GFR (MDRD) 27 L (>89) Glucose 282 H (70-100) mg/dL Calcium 8.4 L (8.5-10.3) mg/dL Nasal Screen MRSA (PCR) NEGATIVE (NEGATIVE) Assessment/Plan - Problem List (1) Acute on chronic respiratory failure with hypoxemia Impression: He has Home O2, but unclear if this was for CHF or COPD and if it is prn or to use when. He claims it was ordered for COPD, but his only med for COPD is Respimat inhaler. He was admitted with marked desats, needed suppl O2 and the cause appeared to be his COVID pulmonary infection. The CXR did not show any changes, but that was before he received significant fluids in the ED, which were given for hypotension and dehydration. The next CXR suggested volume overload. The next CXR was read as aspiration pneumonia. Since he is now needing BIPAP and in the ICU, I called his daughter Kiara, and updated her that he is in critical condition. She confirmed that he is a DNR and DNI. Plan: Cont suppl O2, target sat 88%. We are treating the underlying Covid pneumonia and stopped iv fluids when we saw rise in BNP, and we are now treating the aspiration pneumonia. No ventilator or intubation will be used. (2) Aspiration PNA On 08/10 his O2 needs increased and he was tachypneic and a CXR showed a new aspiration PNA. This probably happened when he had all the episodes of vomiting several days ago. On 08/11, he needed even higher FIO2 to HiFlow and then at 040 today, he was desating more and needed to be transferred into the ICU to be put on BIPAP and 100% FIO2. Plan: We started Unasyn iv (3) COVID-19 virus infection Conclusion/Plan: He first got a cough, then malaise and a poor appetite, then weakness and SOB. When he presented to ER he was tachypneic and in severe resp distress, and also described GI bloating and mild abd pain. Plan: Infectious isolation to continue He has been started on Remdesivir and Decadron Because of his poor appetite and abdominal cramping, bloating and distention, we ordered clear liquid diet, but then ordered ng tube for decompression, which continues (see #4) (4) Ileus Assessment/Plan: When he felt sick at the [facility] with 3 days of cough (and was COVIDpos), he also had bloating, generalized abd pain and poor appetite but no nausea or vomiting. Then after admission, he had 7 episodes of nausea and vomiting several days ago. Emesis was brown, had no coffee grounds. NPO ordered and NG tube placed. He had 200-600 cc of stomach fluid suctioned out per shift on 08/10. On 08/11 the output was slightly lower. Today it is again about 400 cc per shift. His CT abd done at admission showed a dilated stomach w/ air fluid levels, no other intestinal obstruction was reported. Gen Surg consult done 08/10, and Dr Castellanos advised repeating CT of abd using barium given per ng. That CT did reveal dye entering the colon. Thus the Gen Surgeon's impression was that pt has an ileus. Today I learned from the daughter by phone that he should have been on Insulin for mos and was refusing it and is a poorly controlled Diabetic. I suspect he has Diabetic gastroparesis, therefore. Plan: Will start scheduled Reglan iv. Continue ng tube decompression of his large gastric volume, for comfort. (5) Hypernatremia He is NPO but his iv NS was decreased when CXR suggested volume overload. Plan: Continue D5 1/2NS at 50 cc/hr, not faster due to CHF on CXR several days ago. Follow BMP daily (6) History of CHF (congestive heart failure) Conclusion/Plan: BNP was normal at 45, on his first labwork. Then BNP elevated to 256. A repeat CXR showed either fluid or infiltrate. Echo was done 08/10 and it showed LVEF of 55% and diastolic dysfunction probably present (could not be ruled out). Plan: We ordered continuation of his usual cardiac meds, adding hold parameters if BP low. Now will change these to iv form, due to continued need for ng tube decompression. We will follow BNP intermittently (7) Uncontrolled type 2 diabetes mellitus with insulin therapy Conclusion/Plan: (E11.65) The patient told me at admission that he was on oral medicines for DM for years and has just been put on insulin 1 week ago. Then Pharmacy reported that he was on Insulin since May 2022. Today, I spoke to the daughter Kiara by phone and asked about DM: He was prescribed to take Insulin since May 2022 and has refused, then inally agreed and staff at his [facility] started giving his sq Insulin just 4-5 days before admission. His glu here are running 300-400, probably from being on Decadron. His A1c came back at 8.6, indicating poor glu control. Plan: He is NPO because of needing ng tube decompression. When diet is advanced we will start carb controlled diet. Continue iv D5NS while NPO We ordered sliding scale insulin coverage and fingerstick checks and hypoglycemia protocol, will change to q6h now that he is NPO. (8) HARJINDER on CPAP Conclusion/Plan: As per history. Plan: Continue with BIPAP Target oxygen saturation will be 88% (9) COPD (chronic obstructive pulmonary disease) Conclusion/Plan: His medication list shows he is on Respimat. The patient's says his oxygen was ordered 6 years ago and it was for COPD. When I spoke to the daughter by phone today, she could not remember when and for what Dx it was ordered. Plan: Will continue with inhalers while here Continue steroids in the form of Decadron Will continue with supplemental O2, target saturation 88% (10) Acute kidney injury superimposed on CKD Conclusion/Plan: We thought his elevated creat was from volume depletion (when he had poor intake for 3 days before hospitalization), causing the elevation in BUN/creatinine. But today I learned from the daughter by phone that he has had CKD for several years and is followed by a [employer], and no discussion was ever had about hemodialysis. Plan: Avoid nephrotoxins. Continue slow iv fluids Follow BMP daily (11) Near syncope Conclusion/Plan: He did have transient "soft" blood pressure that was documented. And, given the SUKHWINDER at admission, I suspect he had dehydration and was probably orthostatic which caused his near syncope before he called EMS. Telemetry has been stable, showing 100% paced rhythm Echo showed LVEF of 55% and diastolic dysfunction probably is present. Plan: Continue slow iv fluids We ordered orthostatic VS checks, but will cancel that while he is in critical condition in the ICU (12) Pacemaker Conclusion/Plan: On his resting EKG he was 100% ventricular paced rhythm. Unknown if this is an AICD. He thinks it is a plain pacemaker. Plan: He is on telemetry in the ICU. (13) Hx of CVA Daughter gave me details about a stroke many years ago that left him with severe R arm weakness and he has learned to be Left handed therefore. He moved into [facility] 5 years ago to get meals, laundry and housecleaning. He has a good memory, she said, and he can still drive. Plan: Will continue his cardiovascular meds. (14) Poor memory Inaccurate and will be removed. Today the daughter confirmed that all the information he gave at admission was correct, which we thought was incorrect.
[2022-08-12] MEDS: PRAVASTATIN 10 MG TABLET PO SCH (20:51)
[2022-08-12] MEDS: INSULIN GLARGINE-YFGN 300 UNIT/3 ML PEN SUBQ SCH (20:53)
[2022-08-13] MEDS: METOCLOPRAMIDE 10 MG/2 ML VIAL IVP SCH ×5 (00:19→23:32)
[2022-08-13] MEDS: INSULIN REGULAR HUMAN 300 UNIT/3 ML VIAL SUBQ SCH ×5 (00:20→23:36)
[2022-08-13] MEDS: SODIUM CHLORIDE FLUSH 0.9% 10 ML SYRINGE IVP SCH ×3 (00:20→19:20)
[2022-08-13 05:15] LABS: BASOPHILS % (AUTO) 0.1 %; HCT - HEMATOCRIT 42.3 % (42.0-52.0); HGB - HEMOGLOBIN 12.4 g/dL (14.0-18.0); LYMPHOCYTES # (AUTO) 0.5 10^3/uL (1.5-3.5); LYMPHOCYTES % (AUTO) 4.8 %; MEAN CORPUSCULAR HEMOGLOBIN 29.2 pg (27.0-31.0); MEAN CORPUSCULAR HGB CONC 29.3 g/dL (32.0-36.0); MEAN CORPUSCULAR VOLUME 99.5 fL (80.0-94.0); MEAN PLATELET VOLUME 10.2 fL (7.4-11.4); MONOCYTES # (AUTO) 0.9 10^3/uL (0.0-1.0); MONOCYTES % (AUTO) 9.2 %; NEUTROPHILS # (AUTO) 8.7 10^3/uL (1.5-6.6); NEUTROPHILS % (AUTO) 85.1 %; PLT - PLATELET COUNT 256 10^3/uL (130-450); RED BLOOD COUNT 4.25 10^6/uL (4.70-6.10); RED CELL DISTRIBUTION WIDTH 13.6 % (12.0-15.0); WHITE BLOOD COUNT 10.2 x10^3/uL (4.8-10.8)
[2022-08-13 05:58] LABS: CALCIUM 8.5 mg/dL (8.5-10.3); CREATININE 3.2 mg/dL (0.6-1.2); POTASSIUM 3.4 mmol/L (3.5-5.0)
[2022-08-13] MEDS: SODIUM CHLORIDE FLUSH 0.9% 10 ML SYRINGE IVP PRN ×3 (06:21→14:36)
[2022-08-13] MEDS: AMPICILLIN/SULBACTAM 3 GM in SODIUM CHLORIDE 0.9% MINIBAG 100 ML IV SCH ×2 (06:21→18:50)
[2022-08-13] MEDS: ALBUTEROL 1 PUFF INH SCH ×3 (07:22→14:23)
[2022-08-13] MEDS: IPRATROPIUM 0.2 MG/ML NEB INH SCH ×5 (07:25→19:17)
[2022-08-13] MEDS ORDERED: LIDOCAINE 2% URO-JET 5 ML SYRINGE UR ONE (08:11)
[2022-08-13 08:23] LABS: ALBUMIN 2.1 g/dL (3.2-5.5); MAGNESIUM 2.8 mg/dL (1.7-2.8)
[2022-08-13] MEDS ORDERED: ALBUMIN 25% 12.5 GM/50 ML VIAL IV STA (08:56)
[2022-08-13] MEDS ORDERED: FUROSEMIDE 40 MG TABLET PO SCH (09:00)
[2022-08-13] MEDS ORDERED: DEXTROSE 5%-LACTATED RINGERS 1,000 ML IV SCH (09:00)
--- NOTE | 2022-08-13 09:02 | XRAY Report ---
PROCEDURE: Chest 1 View X-Ray INDICATIONS: F/U Covid pneumonia vs CHF TECHNIQUE: One view of the chest was acquired. COMPARISON: 08/11/2022. FINDINGS: Surgical changes and devices: Pacemaker, NG tube Lungs and pleura: No pleural effusions or pneumothorax. Submaximal inspiration. Patchy bibasilar ate lectasis. Question small bilateral pleural effusions. No significant change. Mediastinum: Mediastinal contours appear normal. Heart size is normal. Bones and chest wall: No suspicious bony lesions. Overlying soft tissues appear unremarkable. IMPRESSION: No significant change, patchy bibasilar atelectasis and question small pleural effusions. Reviewed by: Dimitrios Mcneal MD on 08/13/2022 9:01 AM PST Approved by: Dimitrios Mcneal MD on 08/13/2022 9:01 AM PST Station ID: [id number]
[2022-08-13] MEDS ORDERED: SODIUM CHLORIDE 0.45% 1,000 ML IV SCH (10:00)
[2022-08-13] MEDS: DEXAMETHASONE 4 MG/ML VIAL IVP SCH (10:03)
[2022-08-13] MEDS: ENOXAPARIN 30 MG/0.3 ML SYRINGE SUBQ SCH (10:03)
[2022-08-13] MEDS: guaiFENesin 600 MG TABLET PO SCH ×3 (13:54→23:50)
[2022-08-13] MEDS: LORATADINE 10 MG TABLET PO SCH (13:54)
[2022-08-13] MEDS: TAMSULOSIN 0.4 MG CAPSULE PO SCH (13:55)
[2022-08-13] MEDS: CHLORHEXIDINE GLUCONATE 15 ML UDC PO SCH ×2 (14:14→23:13)
--- NOTE | 2022-08-13 17:41 | PROVIDER PROGRESS NOTE ---
Subjective - Subjective Pt reports feeling: Worse (2 hours of NG clamping to assess residual, has caused him to have abdominal pain again. Shortness of breath is unchanged, he is tolerating his BiPAP, and comes off of it briefly. RN reported that he was very obtunded with a low blood pressure which improved as BP came back up.) Objective - Vital Signs/Intake & Output Vital Signs: Vital Signs Pulse Pulse Resp BP Pulse Ox 08/13/22 16:00 85 24 109/41 L 98 08/13/22 15:00 84 22 93/42 L 94 08/13/22 14:25 86 20 08/13/22 14:21 86 08/13/22 14:00 84 19 106/47 L 96 Intake & Output: Intake & Output 08/10/22 08/11/22 08/12/22 08/13/22 23:59 23:59 23:59 23:59 Intake Total 870 2130 1530 1870.832 Output Total 3600 3200 1600 1585 Balance -2730 -1070 -70 285.832 - Objective General Appearance: positive: Mild distress (Abd discomfort) Eyes Bilateral: positive: Normal inspection ENT: positive: Other (Cannot evaluate due to BiPAP mask on and OG tube in place and has a large coles) Neck: positive: Other (Cannot evaluate due to BiPAP mask on and OG tube in place and has a large coles) Respiratory: positive: Other (Diminished) Cardiovascular: positive: Other (Distant heart sound) Abdomen: positive: Other (Distention, no guarding) Skin: positive: Warm, Dry Extremities: positive: Non-tender, No pedal edema Neurologic/Psychiatric: positive: Oriented x3 - Lab Results Fish Bones: 08/14/22 04:12 08/14/22 04:12 Other Labs: Lab Results x24hrs 08/13/22 08/13/22 08/13/22 Range/Units 15:55 10:56 04:47 WBC (4.8-10.8) x10^3/uL RBC (4.70-6.10) 10^6/uL Hgb (14.0-18.0) g/dL Hct (42.0-52.0) % MCV (80.0-94.0) fL MCH (27.0-31.0) pg MCHC (32.0-36.0) g/dL RDW (12.0-15.0) % Plt Count (130-450) 10^3/uL MPV (7.4-11.4) fL Neut # (Auto) (1.5-6.6) 10^3/uL Lymph # (Auto) (1.5-3.5) 10^3/uL Cocke # (Auto) (0.0-1.0) 10^3/uL Eos # (Auto) (0.0-0.7) 10^3/uL Baso # (Auto) (0.0-0.1) 10^3/uL Absolute Nucleated RBC x10^3/uL Nucleated RBC % /100WBC Sodium 160 H* (135-145) mmol/L Potassium (3.5-5.0) mmol/L Chloride (101-111) mmol/L Carbon Dioxide (21-32) mmol/L Anion Gap (6-13) BUN (6-20) mg/dL Creatinine (0.6-1.2) mg/dL Estimated GFR (MDRD) (>89) Glucose (70-100) mg/dL Lactic Acid 2.1 (0.5-2.2) mmol/L Calcium (8.5-10.3) mg/dL Magnesium 2.8 (1.7-2.8) mg/dL B-Natriuretic Peptide (5-100) pg/mL Albumin 2.1 L (3.2-5.5) g/dL 08/13/22 08/13/22 08/13/22 Range/Units 04:47 04:47 04:47 WBC 10.2 (4.8-10.8) x10^3/uL RBC 4.25 L (4.70-6.10) 10^6/uL Hgb 12.4 L (14.0-18.0) g/dL Hct 42.3 (42.0-52.0) % MCV 99.5 H (80.0-94.0) fL MCH 29.2 (27.0-31.0) pg MCHC 29.3 L (32.0-36.0) g/dL RDW 13.6 (12.0-15.0) % Plt Count 256 (130-450) 10^3/uL MPV 10.2 (7.4-11.4) fL Neut # (Auto) 8.7 H (1.5-6.6) 10^3/uL Lymph # (Auto) 0.5 L (1.5-3.5) 10^3/uL Cocke # (Auto) 0.9 (0.0-1.0) 10^3/uL Eos # (Auto) 0.0 (0.0-0.7) 10^3/uL Baso # (Auto) 0.0 (0.0-0.1) 10^3/uL Absolute Nucleated RBC 0.00 x10^3/uL Nucleated RBC % 0.0 /100WBC Sodium 160 H* (135-145) mmol/L Potassium 3.4 L (3.5-5.0) mmol/L Chloride 95 L (101-111) mmol/L Carbon Dioxide 51 H* (21-32) mmol/L Anion Gap 14.0 H (6-13) BUN 110 H* (6-20) mg/dL Creatinine 3.2 H (0.6-1.2) mg/dL Estimated GFR (MDRD) 18 L (>89) Glucose 298 H (70-100) mg/dL Lactic Acid (0.5-2.2) mmol/L Calcium 8.5 (8.5-10.3) mg/dL Magnesium (1.7-2.8) mg/dL B-Natriuretic Peptide 90 (5-100) pg/mL Albumin (3.2-5.5) g/dL Assessment/Plan - Problem List (1) Hypotension Impression: His blood pressures today are hypotensive all day between 70 and 90 systolic. This accompanies 2 days of hyponatremia with sodium of 160. He has been on Lasix because of hypoxia and CHF seen on chest x-ray. BNP has decreased by being on Lasix. Echo was done this admission that shows diastolic heart failure. Another chest x-ray was done today and it was not read as having CHF Plan: Will treat his hyponatremia by giving hypotonic solution Will also give IV albumin to help the blood pressure Will order a bolus of half NS for the low blood pressure Will recheck lactic acid for possible development of sepsis. Condition is critical CRITICAL CARE TIME SPENT: 90 min (Reviewing labs, ordering CXR and work-up for new hypotension, ordering albumin, fluid bolus and management of hypotension and shock, adjusting meds for SUKHWINDER and new hypernatremia, evaluating then reevaluating patient in ICU). (2) Hypernatremia He is NPO but his iv NS was decreased when CXR suggested volume overload. He has been on D5 1/2 NS. Plan: Will stop D5 1/2NS Will start Hypotonic solution using D5LR Will also Follow BMP daily and serum Sodium twice a day (3) Diabetic gastroparesis When he felt sick at the [facility] with 3 days of cough (and was COVIDpos), he also had bloating, generalized abd pain and poor appetite but no nausea or vomiting. Then after admission, he had 7 episodes of nausea and vomiting several days ago. Emesis was brown, had no coffee grounds. NPO ordered and NG tube placed. He had 200-600 cc of stomach fluid suctioned out per shift on 08/10. On 08/11 the output was slightly lower. Today it is again about 400 cc per shift. His CT abd done at admission showed a dilated stomach w/ air fluid levels, no other intestinal obstruction was reported. Gen Surg consult done 08/10, and Dr Castellanos advised repeating CT of abd using barium given per ng. That CT did reveal dye entering the colon. Thus the Gen Surgeon's impression was that pt has an ileus. Today I learned from the daughter by phone that he should have been on Insulin for mos and was refusing it and is a poorly controlled Diabetic. I suspect he has Diabetic gastroparesis, therefore. Plan: Will resume continuous wall suction for decompression of his large gastric volume, for comfort. (4) Acute on chronic respiratory failure with hypoxemia Impression: He has Home O2, but unclear if this was for CHF or COPD and if it is prn or to use when. He claims it was ordered for COPD, but his only med for COPD is Respimat inhaler. He was admitted with marked desats, needed suppl O2 and the cause appeared to be his COVID pulmonary infection. The CXR did not show any changes, but that was before he received significant fluids in the ED, which were given for hypotension and dehydration. The next CXR suggested volume overload. The next CXR was read as aspiration pneumonia. Since he is now needing BIPAP and in the ICU, I called his daughter Kiara, and updated her that he is in critical condition. She confirmed that he is a DNR and DNI. Plan: Cont suppl O2, target sat 88%. We are treating the underlying Covid pneumonia and stopped iv fluids when we saw rise in BNP, and we are now treating the aspiration pneumonia. No ventilator or intubation will be used. His prognosis is very poor. (5) Aspiration PNA On 08/10 his O2 needs increased and he was tachypneic and a CXR showed a new aspiration PNA. This probably happened when he had all the episodes of vomiting several days ago. On 08/11, he needed even higher FIO2 to HiFlow and then at 040 today, he was desating more and needed to be transferred into the ICU to be put on BIPAP and 100% FIO2. Plan: We started Unasyn iv (6) COVID-19 virus infection Conclusion/Plan: He first got a cough, then malaise and a poor appetite, then weakness and SOB. When he presented to ER he was tachypneic and in severe resp distress, and also described GI bloating and mild abd pain. Plan: Infectious isolation to continue He has been started on Remdesivir and Decadron Because of his poor appetite and abdominal cramping, bloating and distention, we ordered clear liquid diet, but then ordered ng tube for decompression, which continues (see #4) (7) COPD with exacerbation Conclusion/Plan: His medication list shows he is on Respimat. The patient's says his oxygen was ordered 6 years ago and it was for COPD. When I spoke to the daughter by phone today, she could not remember when and for what Dx it was ordered. Plan: Will continue with inhalers while here Continue steroids in the form of Decadron Will continue with supplemental O2, target saturation 88% (8) Acute kidney injury superimposed on CKD Conclusion/Plan: We thought his elevated creat was from volume depletion (when he had poor intake for 3 days before hospitalization), causing the elevation in BUN/creatinine. But today I learned from the daughter by phone that he has had CKD for several years and is followed by a [employer], and no discussion was ever had about hemodialysis. Plan: Avoid nephrotoxins. Continue slow iv fluids Follow BMP daily (9) Uncontrolled type 2 diabetes mellitus with insulin therapy (E11.65) Conclusion/Plan: The patient told me at admission that he was on oral medicines for DM for years and has just been put on insulin 1 week ago. Then Pharmacy reported that he was on Insulin since May 2022. Today, I spoke to the daughter Kiara by phone and asked about DM: He was prescribed to take Insulin since May 2022 and has refused, then inally agreed and staff at his [facility] started giving his sq Insulin just 4-5 days before admission. His glu here are running 300-400, probably from being on Decadron. His A1c came back at 8.6, indicating poor glu control. Plan: He is NPO because of needing ng tube decompression. When diet is advanced we will start carb controlled diet. Continue iv D5NS while NPO We ordered sliding scale insulin coverage and fingerstick checks and hypoglycemia protocol, will change to q6h now that he is NPO. (10) Chronic diastolic heart failure Conclusion/Plan: BNP was normal at 45, on his first labwork. Then BNP elevated to 256. A repeat CXR showed either fluid or infiltrate. Echo was done 08/10 and it showed LVEF of 55% and diastolic dysfunction probably present (could not be ruled out). Plan: We ordered continuation of his usual cardiac meds, adding hold parameters if BP low. Now will change these to iv form, due to continued need for ng tube decompression. We will follow BNP intermittently (11) HARJINDER on CPAP Conclusion/Plan: As per history. Plan: Continue with BIPAP Target oxygen saturation will be 88% (12) Near syncope Conclusion/Plan: He did have transient "soft" blood pressure that was documented. And, given the SUKHWINDER at admission, I suspect he had dehydration and was probably orthostatic which caused his near syncope before he called EMS. Telemetry has been stable, showing 100% paced rhythm Echo showed LVEF of 55% and diastolic dysfunction probably is present. Plan: Continue slow iv fluids We ordered orthostatic VS checks, but will cancel that while he is in critical condition in the ICU (13) Pacemaker Conclusion/Plan: On his resting EKG he was 100% ventricular paced rhythm. Unknown if this is an AICD. He thinks it is a plain pacemaker. Plan: He is on telemetry in the ICU. (14) Hx of CVA Daughter gave me details about a stroke many years ago that left him with severe R arm weakness and he has learned to be Left handed therefore. He moved into [facility] 5 years ago to get meals, laundry and housecleaning. He has a good memory, she said, and he can still drive. Plan: Will continue his cardiovascular meds.
[2022-08-13] MEDS ORDERED: PPN (CLINIMIX E 4.25/5) 2,000 ML with MULTIVITAMIN 10 ML, TRACE ELEMENTS 1 ML IV SCH ×6 (19:00)
[2022-08-13] MEDS: FAT EMULSION 20% 250 ML IV SCH (23:12)
[2022-08-13] MEDS: INSULIN GLARGINE-YFGN 300 UNIT/3 ML PEN SUBQ SCH (23:13)
[2022-08-14] MEDS: IPRATROPIUM 0.2 MG/ML NEB INH SCH ×3 (03:00→15:51)
[2022-08-14] MEDS: SODIUM CHLORIDE FLUSH 0.9% 10 ML SYRINGE IVP SCH ×4 (03:33→20:20)
[2022-08-14 04:35] LABS: BASOPHILS % (AUTO) 0.2 %; EOSINOPHILS % (AUTO) 0.1 %; HCT - HEMATOCRIT 38.7 % (42.0-52.0); HGB - HEMOGLOBIN 11.4 g/dL (14.0-18.0); LYMPHOCYTES # (AUTO) 0.4 10^3/uL (1.5-3.5); LYMPHOCYTES % (AUTO) 2.8 %; MEAN CORPUSCULAR HEMOGLOBIN 29.8 pg (27.0-31.0); MEAN CORPUSCULAR HGB CONC 29.5 g/dL (32.0-36.0); MEAN PLATELET VOLUME 10.4 fL (7.4-11.4); MONOCYTES # (AUTO) 0.8 10^3/uL (0.0-1.0); MONOCYTES % (AUTO) 5.5 %; NEUTROPHILS # (AUTO) 13.8 10^3/uL (1.5-6.6); NEUTROPHILS % (AUTO) 90.5 %; PLT - PLATELET COUNT 218 10^3/uL (130-450); RED BLOOD COUNT 3.83 10^6/uL (4.70-6.10); RED CELL DISTRIBUTION WIDTH 13.7 % (12.0-15.0); WHITE BLOOD COUNT 15.2 x10^3/uL (4.8-10.8)
[2022-08-14 05:20] LABS: ALBUMIN 2.1 g/dL (3.2-5.5); ALBUMIN/GLOBULIN RATIO 0.7 (1.0-2.2); BILIRUBIN,TOTAL 0.7 mg/dL (0.2-1.0); CALCIUM 7.9 mg/dL (8.5-10.3); PHOSPHORUS 6.4 mg/dL (2.5-4.6); POTASSIUM 3.3 mmol/L (3.5-5.0); TOTAL PROTEIN 5.1 g/dL (6.7-8.2)
[2022-08-14] MEDS: ALBUTEROL 1 PUFF INH SCH ×3 (06:02→14:49)
[2022-08-14] MEDS: AMPICILLIN/SULBACTAM 3 GM in SODIUM CHLORIDE 0.9% MINIBAG 100 ML IV SCH (06:11)
[2022-08-14] MEDS: METOCLOPRAMIDE 10 MG/2 ML VIAL IVP SCH ×3 (06:14→18:10)
[2022-08-14] MEDS: INSULIN REGULAR HUMAN 300 UNIT/3 ML VIAL SUBQ SCH ×3 (06:18→18:10)
[2022-08-14] MEDS: TAMSULOSIN 0.4 MG CAPSULE PO SCH (08:44)
[2022-08-14] MEDS: LORATADINE 10 MG TABLET PO SCH (08:45)
[2022-08-14] MEDS: guaiFENesin 600 MG TABLET PO SCH ×2 (08:45→23:04)
[2022-08-14] MEDS: ENOXAPARIN 30 MG/0.3 ML SYRINGE SUBQ SCH (09:09)
[2022-08-14] MEDS: CHLORHEXIDINE GLUCONATE 15 ML UDC PO SCH ×2 (09:09→20:20)
[2022-08-14] MEDS: DEXAMETHASONE 4 MG/ML VIAL IVP SCH (09:09)
[2022-08-14] MEDS ORDERED: ALBUMIN 25% 12.5 GM/50 ML VIAL IV STA (09:17)
[2022-08-14] MEDS ORDERED: ACETAMINOPHEN 1,000 MG/100 ML 1,000 MG/100 ML BAG IV PRN (10:31)
[2022-08-14] MEDS ORDERED: DEXTROSE 5%-LACTATED RINGERS 1,000 ML IV SCH (11:00)
--- NOTE | 2022-08-14 16:07 | PROVIDER PROGRESS NOTE ---
Subjective - Subjective Pt reports feeling: Worse (He is much more lethargic, speaks much less than 2 days ago and is less interested in food) Objective - Vital Signs/Intake & Output Vital Signs: Vital Signs Pulse Pulse Resp BP Pulse Ox 08/14/22 15:48 86 08/14/22 15:00 87 22 119/64 95 08/14/22 14:50 67 20 08/14/22 14:00 87 22 118/62 95 08/14/22 13:46 86 08/14/22 13:00 87 22 122/63 95 Intake & Output: Intake & Output 08/11/22 08/12/22 08/13/22 08/14/22 23:59 23:59 23:59 23:59 Intake Total 2130 1530 2377.000 400 Output Total 3200 1600 1649 895 Balance -1070 -70 728.000 -495 - Objective General Appearance: positive: Mild distress (He is on high flow BiPAP mask but is asleep) Eyes Bilateral: positive: Normal inspection Neck: positive: Nml inspection Respiratory: positive: Other (Diminished breath sound) Cardiovascular: positive: Regular rate & rhythm Abdomen: positive: Other (NG tube is to wall drainage and when the tube is clam ped, the tube fills up quickly with gastric fluid) Skin: positive: Dry Extremities: positive: Other (Trace edema) - Lab Results Fish Bones: 08/14/22 04:12 08/14/22 04:12 Other Labs: Lab Results x24hrs 08/14/22 08/14/22 08/13/22 Range/Units 04:12 04:12 15:55 WBC 15.2 H (4.8-10.8) x10^3/uL RBC 3.83 L (4.70-6.10) 10^6/uL Hgb 11.4 L (14.0-18.0) g/dL Hct 38.7 L (42.0-52.0) % MCV 101.0 H (80.0-94.0) fL MCH 29.8 (27.0-31.0) pg MCHC 29.5 L (32.0-36.0) g/dL RDW 13.7 (12.0-15.0) % Plt Count 218 (130-450) 10^3/uL MPV 10.4 (7.4-11.4) fL Neut # (Auto) 13.8 H (1.5-6.6) 10^3/uL Lymph # (Auto) 0.4 L (1.5-3.5) 10^3/uL [place] # (Auto) 0.8 (0.0-1.0) 10^3/uL Eos # (Auto) 0.0 (0.0-0.7) 10^3/uL Baso # (Auto) 0.0 (0.0-0.1) 10^3/uL Absolute Nucleated RBC 0.00 x10^3/uL Nucleated RBC % 0.0 /100WBC Sodium 156 H* 160 H* (135-145) mmol/L Potassium 3.3 L (3.5-5.0) mmol/L Chloride 91 L (101-111) mmol/L Carbon Dioxide 51 H* (21-32) mmol/L Anion Gap 14.0 H (6-13) BUN 144 H* (6-20) mg/dL Creatinine 5.0 H (0.6-1.2) mg/dL Estimated GFR (MDRD) 11 L (>89) Glucose 396 H (70-100) mg/dL Calcium 7.9 L (8.5-10.3) mg/dL Phosphorus 6.4 H (2.5-4.6) mg/dL Magnesium 3.0 H (1.7-2.8) mg/dL Total Bilirubin 0.7 (0.2-1.0) mg/dL AST 14 (10-42) IU/L ALT 16 (10-60) IU/L Alkaline Phosphatase 40 L (42-121) IU/L Total Protein 5.1 L (6.7-8.2) g/dL Albumin 2.1 L (3.2-5.5) g/dL Globulin 3.0 (2.1-4.2) g/dL Albumin/Globulin Ratio 0.7 L (1.0-2.2) Prealbumin 12 L (18-45) mg/dL Triglycerides 293 H ( - 149) mg/dL Assessment/Plan - Problem List (1) Hypotension Impression: His blood pressures today are "soft" but not as low as yesterday when the were 70 and 90 systolic. This accompanies 2 days of hypernatremia with sodium of 160. He had been on Lasix because of hypoxia and because CHF was reported on chest x-ray. BNP has decreased by being on Lasix. Echo was done this admission that shows diastolic heart failure. Another chest x-ray was done yestrday and it was not read as having CHF We rechecked lactic acid for possible development of sepsis and was not elevated. Troponins were done and he did not have an acute VA Plan: We changed iv fluids to treat his hyponatremia by giving hypotonic solution, continue D5Lr. We also gave IV albumin to help the blood pressure, and will order another bag of Albumen today Condition is critical Today the daughter and her arrived to visit him and I spoke to them extensively outside his room and told them he may not survive this hospitalization. (2) Acute kidney injury superimposed on CKD I learned from the daughter by phone several days ago, that he has had CKD for several years and is followed by a Networking Administrator. There was no discussion ever potter adrianne about hemodialysis. Despite improved blood pressure yesterday and minor correction of his hypernat remia today using fluids and stopping Lasix, his creatinine has increased to 5 today. He was overall oliguric with only 90 cc of total urine output yesterday, today he is already put out 230 cc. Plan: Avoid nephrotoxins. Continue giving iv fluids Follow BMP daily (3) Hypernatremia He is NPO but his iv NS was decreased when CXR suggested volume overload. He was then on D5 1/2 NS. Since yesterday he is getting no NS and fluids. He is on D5 LR. Yesterday evening he was also started on PPN Plan: Continue Hypotonic solutions using D5LR and/or PPN Follow BMP daily and serum Sodium twice a day (3) Diabetic gastroparesis When he felt sick at the [facility] with 3 days of cough (and was COVIDpos), he also had bloating, generalized abd pain and poor appetite but no nausea or vomiting. Then after admission, he had 7 episodes of nausea and vomiting several days ago. Emesis was brown, had no coffee grounds. NPO ordered and NG tube placed. He had 200-600 cc of stomach fluid suctioned out per shift on 08/10. On 08/11 the output was slightly lower. Today it is again about 400 cc per shift. His CT abd done at admission showed a dilated stomach w/ air fluid levels, no other intestinal obstruction was reported. Gen Surg consult done 08/10, and Dr Castellanos advised repeating CT of abd using barium given per ng. That CT did reveal dye entering the colon. Thus the Gen Surgeon's impression was that pt has an ileus. I learned from the daughter by phone that he should have been on Insulin for mos and was refusing it and is a poorly controlled Diabetic. I suspect he has Diabetic gastroparesis, therefore. Plan: Each day we try NG tube clamping for about 2 hours to check the residual and he either gets abdominal bloating and pain or there is immediate filling of the NG tube after it is clamped Will resume continuous wall suction for decompression of his large gastric volume, for comfort. (4) Acute on chronic respiratory failure with hypoxemia Impression: He has Home O2, but unclear if this was for CHF or COPD and if it is prn or to use when. He claims it was ordered for COPD, but his only med for COPD is Respimat inhaler. He was admitted with marked desats, needed suppl O2 and the cause appeared to be his COVID pulmonary infection. The CXR did not show any changes, but that was before he received significant fluids in the ED, which were given for hypotension and dehydration. The next CXR suggested volume overload. The next CXR was read as aspiration pneumonia. When he was moved to the ICU, I called his daughter Kiara, and updated her that he is in critical condition. She confirmed that he is a DNR and DNI. Plan: Cont suppl O2, target sat 88%. We are treating the underlying Covid pneumonia and stopped iv fluids when we saw rise in BNP, and we are now treating the aspiration pneumonia. No ventilator or intubation will be used. His prognosis is very poor. Today the daughter and her arrived to visit him and I spoke to them extensively outside his room and told them he may not survive this hospitalization. (5) Aspiration PNA On 08/10 his O2 needs increased and he was tachypneic and a CXR showed a new aspiration PNA. This probably happened when he had all the episodes of vomiting several days ago. On 08/11, he needed even higher FIO2 to HiFlow and then at 0400 today, he was desating more and needed to be transferred into the ICU to be put on BIPAP and 100% FIO2. Plan: We started Unasyn iv Will change that to Zosyn iv (6) COVID-19 virus infection Conclusion/Plan: He first got a cough, then malaise and a poor appetite, then weakness and SOB. When he presented to ER he was tachypneic and in severe resp distress, and also described GI bloating and mild abd pain. Plan: Infectious isolation to continue He has been started on Remdesivir and Decadron Because of his poor appetite and abdominal cramping, bloating and distention, we ordered clear liquid diet, but then ordered ng tube for decompression, which co ntinues (see #4) (7) COPD with exacerbation Conclusion/Plan: His medication list shows he is on Respimat. The patient's says his oxygen was ordered 6 years ago and it was for COPD. When I spoke to the daughter by phone today, she could not remember when and for what Dx it was ordered. Plan: Will continue with inhalers while here Continue steroids in the form of Decadron Will continue with supplemental O2, target saturation 88% (9) Uncontrolled type 2 diabetes mellitus with insulin therapy (E11.65) Conclusion/Plan: The patient told me at admission that he was on oral medicines for DM for years and has just been put on insulin 1 week ago. Then Pharmacy reported that he was on Insulin since May 2022. Today, I spoke to the daughter Kiara by phone and asked about DM: He was prescribed to take Insulin since May 2022 and has refused, then inally agreed and staff at his [facility] started giving his sq Insulin just 4-5 days before admission. His glu here are running 300-400, probably from being on Decadron. His A1c came back at 8.6, indicating poor glu control. Plan: He is NPO because of needing ng tube decompression. Continue PPN, started yesterday 08/13, while he is NPO We ordered sliding scale insulin coverage and fingerstick checks and hypoglycemia protocol, changed to q6h now that he is NPO. (10) Chronic diastolic heart failure Conclusion/Plan: BNP was normal at 45, on his first labwork. Then BNP elevated to 256. A repeat CXR showed either fluid or infiltrate. Echo was done 08/10 and it showed LVEF of 55% and diastolic dysfunction probably present (could not be ruled out). Plan: We ordered continuation of his usual cardiac meds, adding hold parameters if BP low.We have changed the essential meds to iv form, due to continued need for ng tube decompression. We will follow BNP intermittently (11) HARJINDER on CPAP Conclusion/Plan: As per history. Plan: Continue with BIPAP Target oxygen saturation will be 88% (12) Near syncope Conclusion/Plan: He did have transient "soft" blood pressure that was documented. And, given the SUKHWINDER at admission, I suspect he had dehydration and was probably orthostatic which caused his near syncope before he called EMS. Telemetry has been stable, showing 100% paced rhythm Echo showed LVEF of 55% and diastolic dysfunction probably is present. Plan: Continue iv fluids We ordered orthostatic VS checks, but those are cancelled while he is in critical condition in the ICU (13) Pacemaker Conclusion/Plan: On his resting EKG he was 100% ventricular paced rhythm. Unknown if this is an AICD. He thinks it is a plain pacemaker. Plan: He is on telemetry in the ICU. (14) Hx of CVA Daughter gave me details about a stroke many years ago that left him with severe R arm weakness and he has learned to be Left handed therefore. He moved into [facility] 5 years ago to get meals, laundry and housecleaning. He has a good memory, she said, and he can still drive. Plan: Will continue his cardiovascular meds.
[2022-08-14] MEDS ORDERED: AMPICILLIN/SULBACTAM 3 GM in SODIUM CHLORIDE 0.9% MINIBAG 100 ML IV SCH (16:42)
[2022-08-14] MEDS: PPN IV SCH ×4 (18:10)
[2022-08-14] MEDS: FAT EMULSION 20% 250 ML IV SCH (18:10)
[2022-08-14] MEDS: [UNRECOGNIZED DRUG - OTHER] IV SCH ×4 (18:10)
[2022-08-14] MEDS: TRACE ELEMENTS IV SCH ×4 (18:10)
[2022-08-14] MEDS: MULTIVITAMIN IV SCH ×4 (18:10)
[2022-08-14] MEDS: INSULIN GLARGINE-YFGN 300 UNIT/3 ML PEN SUBQ SCH (20:26)
[2022-08-15] MEDS: INSULIN REGULAR HUMAN 300 UNIT/3 ML VIAL SUBQ SCH ×4 (00:12→17:42)
[2022-08-15] MEDS: METOCLOPRAMIDE 10 MG/2 ML VIAL IVP SCH ×4 (00:14→17:43)
[2022-08-15] MEDS: ALBUTEROL 1 PUFF INH SCH ×3 (00:15→13:56)
[2022-08-15 04:24] LABS: BASOPHILS % (AUTO) 0.2 %; EOSINOPHILS % (AUTO) 0.3 %; HCT - HEMATOCRIT 39.3 % (42.0-52.0); HGB - HEMOGLOBIN 11.6 g/dL (14.0-18.0); LYMPHOCYTES % (AUTO) 2.2 %; MEAN CORPUSCULAR HEMOGLOBIN 29.8 pg (27.0-31.0); MEAN CORPUSCULAR HGB CONC 29.5 g/dL (32.0-36.0); MEAN PLATELET VOLUME 10.8 fL (7.4-11.4); NEUTROPHILS % (AUTO) 93.3 %; PLT - PLATELET COUNT 195 10^3/uL (130-450); RED BLOOD COUNT 3.89 10^6/uL (4.70-6.10); RED CELL DISTRIBUTION WIDTH 13.7 % (12.0-15.0); WHITE BLOOD COUNT 20.9 x10^3/uL (4.8-10.8)
[2022-08-15 04:31] LABS: ABNORMAL LYMPHS % (MANUAL) 0 %
[2022-08-15 05:02] LABS: CREATININE 5.3 mg/dL (0.6-1.2); GFR - MDRD 10 (>89)
[2022-08-15 05:03] LABS: CALCIUM 7.9 mg/dL (8.5-10.3); CHLORIDE 88 mmol/L (101-111); GLUCOSE 435 mg/dL (70-100); POTASSIUM 3.2 mmol/L (3.5-5.0)
[2022-08-15 05:21] LABS: BUN - BLOOD UREA NITROGEN 160 mg/dL (6-20); CARBON DIOXIDE - CO2 > 45 mmol/L (21-32); SODIUM 159 mmol/L (135-145)
[2022-08-15] MEDS ORDERED: INSULIN REGULAR HUMAN 300 UNIT/3 ML VIAL SUBQ ONE (06:16)
[2022-08-15 06:17] LABS: BAND NEUTROPHILS % (MANUAL) 2 %; DIFFERENTIAL COMMENT MANUAL DIFFERENTIAL; EOSINOPHILS # (MANUAL) 0.2 10^3/uL (0-0.7); LYMPHOCYTES # (MANUAL) 0.8 10^3/uL (1.5-3.5); LYMPHOCYTES % (MANUAL) 4 %; MONOCYTES # (MANUAL) 0.4 10^3/uL (0.0-1.0); NEUTROPHILS # (MANUAL) 19.4 10^3/uL (1.5-6.6); PLATELET ESTIMATE, MANUAL NORMAL (130-450,000) (NORMAL); RBC MORPHOLOGY (MULTIPLE) NORMAL APPEARANCE (NORMAL)
[2022-08-15] MEDS: AMPICILLIN/SULBACTAM 3 GM in SODIUM CHLORIDE 0.9% MINIBAG 100 ML IV SCH (06:19)
[2022-08-15] MEDS: DEXTROSE 5% 1,000 ML IV SCH (06:54)
[2022-08-15] MEDS: TAMSULOSIN 0.4 MG CAPSULE PO SCH (08:04)
[2022-08-15] MEDS: guaiFENesin 600 MG TABLET PO SCH ×2 (08:04→20:45)
[2022-08-15] MEDS: CHLORHEXIDINE GLUCONATE 15 ML UDC PO SCH ×2 (08:45→20:45)
[2022-08-15] MEDS: ENOXAPARIN 30 MG/0.3 ML SYRINGE SUBQ SCH (08:45)
[2022-08-15] MEDS: SODIUM CHLORIDE FLUSH 0.9% 10 ML SYRINGE IVP SCH ×2 (08:45→14:43)
[2022-08-15] MEDS: DEXAMETHASONE 4 MG/ML VIAL IVP SCH (08:45)
--- NOTE | 2022-08-15 15:04 | PROVIDER PROGRESS NOTE ---
Subjective - Subjective Pt reports feeling: No change (He was awake enough to communicate with daughter when she visited inside the room. Then he quickly fell asleep, he is asleep most of the day) Objective - Vital Signs/Intake & Output Reviewed Vital Signs: Yes Vital Signs: Vital Signs Temp Pulse Pulse Resp BP Pulse Ox 08/15/22 14:00 95 26 H 94/56 L 93 08/15/22 13:56 96 19 08/15/22 13:00 94 25 H 98/49 L 94 08/15/22 12:54 93 08/15/22 12:00 36.1 C L 93 24 95/55 L 92 Intake & Output: Intake & Output 08/12/22 08/13/22 08/14/22 08/15/22 23:59 23:59 23:59 23:59 Intake Total 1530 2377.000 2745.25 1097.5 Output Total 1600 1649 1780 2172 Balance -70 728.000 965.25 -1074.5 - Objective General Appearance: positive: No acute distress (Asleep, HOB elevated, wearing BIPAP equipment, has ng to suction) Eyes Bilateral: positive: No lid inflammation ENT: positive: Other (BIPAP mask on and has ng tube in place) Neck: positive: Other (CAnnot visualize due to BIPAP mask on, and long coles) Respiratory: positive: Other (distant (per report/remote eval)) Cardiovascular: positive: Regular rate & rhythm Abdomen: positive: Other (Minimally distnded, has ng to wall suction) Extremities: positive: Other ((+) edema) Neurologic/Psychiatric: positive: Other (Lethrgic, R arm weak) - Lab Results Fish Bones: 08/15/22 04:11 08/15/22 04:11 Other Labs: Lab Results x24hrs 08/15/22 08/15/22 Range/Units 04:11 04:11 WBC 20.9 H (4.8-10.8) x10^3/uL RBC 3.89 L (4.70-6.10) 10^6/uL Hgb 11.6 L (14.0-18.0) g/dL Hct 39.3 L (42.0-52.0) % MCV 101.0 H (80.0-94.0) fL MCH 29.8 (27.0-31.0) pg MCHC 29.5 L (32.0-36.0) g/dL RDW 13.7 (12.0-15.0) % Plt Count 195 (130-450) 10^3/uL MPV 10.8 (7.4-11.4) fL Neut # (Auto) Not Reportable Lymph # (Auto) Not Reportable [place] # (Auto) Not Reportable Eos # (Auto) Not Reportable Baso # (Auto) Not Reportable Absolute Nucleated RBC Not Reportable Total Counted 100 Band Neuts % (Manual) 2 (0 - 10) % Abnorm Lymph % (Manual) 0 % Nucleated RBC % Not Reportable Neutrophils # (Manual) 19.4 H (1.5-6.6) 10^3/uL Lymphocytes # (Manual) 0.8 L (1.5-3.5) 10^3/uL Monocytes # (Manual) 0.4 (0.0-1.0) 10^3/uL Eosinophils # (Manual) 0.2 (0-0.7) 10^3/uL Basophils # (Manual) 0.0 (0-0.1) 10^3/uL Differential Comment MANUAL DIFFERENTIAL Platelet Estimate NORMAL (130-450,000) (NORMAL) RBC Morph Micro Appear NORMAL APPEARANCE (NORMAL) Sodium 159 H* (135-145) mmol/L Potassium 3.2 L (3.5-5.0) mmol/L Chloride 88 L (101-111) mmol/L Carbon Dioxide > 45 H* (21-32) mmol/L Anion Gap 26.0 H (6-13) BUN 160 H* (6-20) mg/dL Creatinine 5.3 H (0.6-1.2) mg/dL Estimated GFR (MDRD) 10 L (>89) Glucose 435 H (70-100) mg/dL Calcium 7.9 L (8.5-10.3) mg/dL Assessment/Plan - Problem List (1) Hypotension Impression: His blood pressures today are still "soft" but not as low as yesterday when the were 70 and 90 systolic. This accompanies 3 days of hypernatremia with sodium of 160>> 157. He had been on Lasix here because of hypoxia and because CHF was reported on chest x-ray. BNP has decreased by being on Lasix. Echo was done this admission that shows diastolic heart failure. The last chest x-ray was not read as having CHF We rechecked lactic acid for possible development of sepsis and was not elevated. Troponins were done and he did not have an acute NM Plan: We changed iv fluids 2 days ago to treat his hypernatremia by giving hypotonic solution using D5Lr. Today changed to D5, to eliminate LR due to SUKHWINDER. We also gave IV albumin to help the blood pressure and promote renal perfusion, for the last 2 days. Condition is critical Today the daughter visited him and I spoke to her by phone later in the day today, updated her on all his diagnoses. (2) Acute kidney injury superimposed on CKD I learned from the daughter by phone several days ago, that he has had CKD for several years and is followed by a Blasting Entry Specialist. There was no discussion ever had about hemodialysis. Despite improved blood pressure yesterday and minor correction of his hypernatremia today using fluids and stopping Lasix, his creatinine has increased to 5.6 today. He was overall oliguric with only 90 cc of total urine output on 08/13, then urine output improved to 800 cc yesterday and is already 900 cc today at midday Plan: Avoid nephrotoxins. Continue giving iv fluids, now in the form of PPN and D5. Follow BMP daily (3) Hypernatremia He has been NPO and was on iv NS. Then CXR was read as CHF and NS was decreased. When Na started climbing, he was changed to D5 1/2 NS, then D5 LR and today D5 and PPN for 3rd day today. Plan: Continue Hypotonic solutions using D5 and PPN Follow BMP daily and serum Sodium twice a day, to make adjustment in fluids (3) Diabetic gastroparesis vs Ileus When he felt sick at the [facility] with 3 days of cough (and was COVIDpos), he also had bloating, generalized abd pain and poor appetite but no nausea or vomiting. Then after admission, he had 7 episodes of nausea and vomiting several days ago. Emesis was brown, had no coffee grounds. NPO ordered and NG tube placed. He had 200-600 cc of stomach fluid suctioned out per shift since started. His CT abd done at admission showed a dilated stomach w/ air fluid levels, no other intestinal obstruction was reported. Gen Surg consult done 08/10, and Dr Castellanos advised repeating CT of abd using barium given per ng. That CT did reveal dye entering the colon. Thus the Gen Surgeon's impression was that pt has an ileus. I learned from the daughter by phone that he should have been on Insulin for mos and was refusing it and is a poorly controlled Diabetic. I suspect he has Diabetic gastroparesis, therefore. Plan: Reglan iv scheduled was started 3 days ago, continue this. Each day that we try NG tube clamping for about 2 hours to check the residual, he either gets abdominal bloating and pain or there is immediate filling of the NG tube after it is clamped Remain on continuous wall suction for decompression of his large gastric volume, for comfort. (4) Acute on chronic respiratory failure with hypoxemia Impression: He has Home O2, but unclear if this was for CHF or COPD and if it is prn or to use when. He claims it was ordered for COPD, but his only med for COPD is Respimat inhaler. He was admitted with marked desats, needed suppl O2 and the cause appeared to be his COVID pulmonary infection. The CXR did not show any changes, but that was b efore he received significant fluids in the ED, which were given for hypotension and dehydration. The next CXR suggested volume overload. The next CXR was read as aspiration pneumonia. When he was moved to the ICU, I called his daughter Kiara, and updated her that he is in critical condition. She confirmed that he is a DNR and DNI. Plan: Cont suppl O2, target sat 88%. We are treating the underlying Covid pneumonia and we are now treating the aspiration pneumonia. No ventilator or intubation will be used, is not desired. His prognosis is very poor. Yesterday when I spoke to the daughter and her , I told them he may not survive this hospitalization. Today with better urine output, I told the daughter he may have started to turn around. (5) Aspiration PNA On 08/10 his O2 needs increased and he was tachypneic and a CXR showed a new aspiration PNA. This probably happened when he had all the episodes of vomiting several days ago. On 08/11, he needed even higher FIO2 to HiFlow and then at 0400, he was desating more and needed to be transferred into the ICU to be put on BIPAP and 100% FIO2. Blood cultures are negative to date Plan: Continue empiric Zosyn iv Await blood cultures that were drawn when he had a fever spike, to tailor antibiotics (6) COVID-19 virus infection Conclusion/Plan: He first got a cough, then malaise and a poor appetite, then weakness and SOB. When he presented to ER he was tachypneic and in severe resp distress, and also described GI bloating and mild abd pain. Plan: Infectious isolation to continue He completed a course of Remdesivir and is on day 9 of 10 days of Decadron Because of his poor appetite and abdominal cramping, bloating and distention, we ordered clear liquid diet, but then ordered ng tube for decompression after vomiting began, which continues (see #3) (7) COPD with exacerbation Conclusion/Plan: His medication list shows he is on Respimat. The patient's told me his oxygen was ordered 6 years ago and it was for COPD. When I spoke to the daughter the first time, she could not remember when and for what Dx O2 was ordered. Plan: Will continue with inhalers while in isolation Continue steroids in the form of Decadron Will continue with supplemental O2, target saturation 88% (8) Uncontrolled type 2 diabetes mellitus with insulin therapy (E11.65) Conclusion/Plan: The patient told me at admission that he was on oral medicines for DM for years and has just been put on insulin 1 week ago. Then Pharmacy reported that he was on Insulin since May 2022. Today, I spoke to the daughter Kiara by phone and asked about DM: He was prescribed to take Insulin since May 2022 and has refused, then inally agreed and staff at his [facility] started giving his sq Insulin just 4-5 days before admission. His glu here are running 300-400, probably from being on Decadron. His A1c came back at 8.6, indicating poor glu control. Plan: He is NPO because of needing ng tube decompression. Continue PPN, started 08/13, while he is NPO We ordered sliding scale insulin coverage and fingerstick checks and hyp oglycemia protocol, changed to q6h now that he is NPO. (10) Chronic diastolic heart failure Conclusion/Plan: BNP was normal at 45, on his first labwork. Then BNP elevated to 256. A repeat CXR showed either fluid or infiltrate. Echo was done 08/10 and it showed LVEF of 55% and diastolic dysfunction probably present (could not be ruled out). Plan: We ordered continuation of his usual cardiac meds, adding hold parameters if BP low. We have changed the essential meds to iv form, due to continued need for ng tube decompression. We will follow BNP intermittently (11) HARJINDER on CPAP Conclusion/Plan: As per history. Plan: Continue with BIPAP Target oxygen saturation will be 88% (12) Near syncope Conclusion/Plan: He did have transient "soft" blood pressure that was documented. And, given the SUKHWINDER at admission, I suspect he had dehydration and was probably orthostatic which caused his near syncope before he called EMS. Telemetry has been stable, showing 100% paced rhythm Echo showed LVEF of 55% and diastolic dysfunction probably is present. Plan: Continue iv fluids We ordered orthostatic VS checks, but those are cancelled while he is in critical condition in the ICU (13) Pacemaker Conclusion/Plan: On his resting EKG he was 100% ventricular paced rhythm. Unknown if this is an AICD. He thinks it is a plain pacemaker. Plan: He is on telemetry in the ICU. (14) Hx of CVA Daughter gave me details about a stroke many years ago that left him with severe R arm weakness and he has learned to be Left handed therefore. He moved into [facility] 5 years ago to get meals, laundry and housecleaning. He has a good memory, she said, and he could still drive. Plan: Will continue his cardiovascular meds.
--- NOTE | 2022-08-15 15:09 | ADVANCE CARE PLANNING NOTE ---
Advance Care Planning - Planning Encounter Date: 08/15/22 Time: 14:30 Purpose: To determine the daughter's wishes going forward regarding the patient's care. Parties in Attendance: I spoke to the daughter by phone today, I have met with her in person on previous days. Decisional Capacity of the Patient: Patient cannot make decisions for himself currently: He is on BiPAP for COVID- pneumonia, and is lethargic from uremia from acute on chronic kidney disease. - Diagnosis for Encounter (1) Acute kidney injury superimposed on CKD Summary: Patient has had CKD for years, he is followed by library clerk. There has never been discussion about hemodialysis, this was documented on previous discussions with this daughter. Since being admitted the patient's creatinine went from 3 then after diuresis increased as high as 5 and then despite no further volume overload and being rehydrated, he became nanuric and creatinine has increased to 5.6. The annuria has resolved however and he is now making urine with the current management he is on. Patient is also critically ill from a COVID- pneumonia requiring maximum settings on BiPAP, never wanted to be on a v entilator. He is also in significant distress from an ileus and diabetic gastroparesis which are causing gastric fluid retention and he needs NG drainage, has failed clamping of the NG tube. - Encounter Subjective/Patient's Story: Patient is a , lost his many years ago. Approximately 5 years ago he suffered a stroke that left him with right arm weakness, he has learned to be left-handed. He does need help with some articles of clothing with dressing. He moved into assisted living 5 years ago to get help with meals, laundry and housekeeping. Otherwise he is independent and is in charge of his own pills. He has been ordered to get oxygen many years ago and he cannot remember from what diagnosis, neither can the daughter, it is either for COPD or CHF. He developed chronic kidney failure years ago and has been followed by a library clerk and the GFR has been abnormal but stable. They never had a discussion about what hemodialysis would be like. He is a DNR/DNI. Objective/Medical Story: Patient suffered a stroke about 5 years ago which left him with right arm weakness. He moved into assisted living then to get help with meals housekeeping and laundry. Otherwise he is in charge of his own medications. The patient has CKD and creat runs 3. He has COPD on oxygen and CHF with diastolic heart failure. He is a diabetic and has refused to take insulin for nearly a year, was only on oral meds. Just in the last week before this admission he agreed to start getting insulin injections, which was done by the staff at his [facility]. He then suffered URI symptoms and abdominal discomfort and tested positive for COVID, and was isolated in his room at [facility] for 3 days, was hardly eating. Then he became dizzy and himself called EMS and was brought to the ER. He was found to have severe hypoxia, gastric distention on CT imaging and has been hospitalized for COVID-pneumonia and a COPD exacerbation. He was started on Remdesivir and Decadron. He has been getting worsening hypoxia, has been moved to the ICU to get BiPAP. Has worsening gastric distention causing vomiting, had an NG tube placed for decompression and repeat testing showed an ileus and/or diabetic gastroparesis. After the vomiting, he developed a fever and has been diagnosed with an aspiration pneumonia. His chest x-ray had also suggested CHF and he was getting diuretics. The creatinine then increased from 3 to 5 and he became hypotensive and anuric. His sodium james to 160. Management was entirely altered and after starting hypotonic fluid replacement he is starting to make urine, blood pressure and sodium have improved but his NG drainage, respiratory status and renal function have made no progress. I have been updating the daughter about all his systems nearly every day. She visits him nearly daily and noticed that yesterday he was very somnolent, which I told her was likely from uremia. Today he has slightly more energy. She asked me if he has a long to live. I answered that if we stop all treatment today he probably would only survive 2 days. If we keep everything going, he has a chance of recovery, now that he is making urine but this could be very slow with many organs affected at his age of 86. The daughter then stated that she does not want him to be so debilitated that he would need to be in a wheelchair and getting renal dialysis, because she thinks that is a poor quality of life, which he would not want. I offered that a Palliative Care consult be done to help the daughter make decisions as the case progresses and she requested this. She has not yet requested that we start ordering comfort care or withdrawing medical management. At admission, we already knew he was a DNR/DNI. Goals of Care: The daughter says that she would like him to have a reasonable quality of life. Also she does not want him "to suffer". The patient already has DNR/DNI requested and ordered. Plan: The daughter very much would like the input of palliative care, therefore a palliative care consult will be ordered. We will continue with current aggressive management in the ICU. Code Status: Do Not Attempt Resuscitation Time spent on advance care plannin min
[2022-08-15] MEDS: [UNRECOGNIZED DRUG - OTHER] IV SCH ×4 (18:13)
[2022-08-15] MEDS: MULTIVITAMIN IV SCH ×4 (18:13)
[2022-08-15] MEDS: TRACE ELEMENTS IV SCH ×4 (18:13)
[2022-08-15] MEDS: PPN IV SCH ×4 (18:13)
[2022-08-15] MEDS: FAT EMULSION 20% 250 ML IV SCH (18:13)
[2022-08-15] MEDS: INSULIN GLARGINE-YFGN 300 UNIT/3 ML PEN SUBQ SCH (20:46)
[2022-08-16] MEDS ORDERED: INSULIN REGULAR HUMAN 300 UNIT/3 ML VIAL IVP ONE (00:05)
[2022-08-16] MEDS: METOCLOPRAMIDE 10 MG/2 ML VIAL IVP SCH ×4 (00:18→18:04)
[2022-08-16] MEDS: INSULIN REGULAR HUMAN 300 UNIT/3 ML VIAL SUBQ SCH ×3 (00:19→12:04)
[2022-08-16] MEDS: SODIUM CHLORIDE FLUSH 0.9% 10 ML SYRINGE IVP SCH ×2 (00:19→08:51)
[2022-08-16] MEDS: DEXTROSE 5% 1,000 ML IV SCH (03:31)
[2022-08-16] MEDS: ALBUTEROL 1 PUFF INH SCH ×3 (04:01→17:35)
[2022-08-16 05:58] LABS: BASOPHILS % (AUTO) 0.2 %; EOSINOPHILS % (AUTO) 0.2 %; HCT - HEMATOCRIT 36.3 % (42.0-52.0); HGB - HEMOGLOBIN 10.8 g/dL (14.0-18.0); LYMPHOCYTES % (AUTO) 2.2 %; MEAN CORPUSCULAR HEMOGLOBIN 30.1 pg (27.0-31.0); MEAN CORPUSCULAR HGB CONC 29.8 g/dL (32.0-36.0); MEAN CORPUSCULAR VOLUME 101.1 fL (80.0-94.0); MEAN PLATELET VOLUME 11.1 fL (7.4-11.4); MONOCYTES % (AUTO) 3.8 %; NEUTROPHILS % (AUTO) 92.5 %; PLT - PLATELET COUNT 154 10^3/uL (130-450); RED BLOOD COUNT 3.59 10^6/uL (4.70-6.10); RED CELL DISTRIBUTION WIDTH 13.6 % (12.0-15.0); WHITE BLOOD COUNT 24.3 x10^3/uL (4.8-10.8)
[2022-08-16] MEDS: AMPICILLIN/SULBACTAM 3 GM in SODIUM CHLORIDE 0.9% MINIBAG 100 ML IV SCH (06:00)
[2022-08-16 06:03] LABS: ABNORMAL LYMPHS % (MANUAL) 0 %
[2022-08-16 06:20] LABS: BAND NEUTROPHILS % (MANUAL) 3 %; LYMPHOCYTES # (MANUAL) 0.7 10^3/uL (1.5-3.5); LYMPHOCYTES % (MANUAL) 3 %; MONOCYTES # (MANUAL) 0.5 10^3/uL (0.0-1.0); NEUTROPHILS # (MANUAL) 23.1 10^3/uL (1.5-6.6)
[2022-08-16 06:21] LABS: DIFFERENTIAL COMMENT MANUAL DIFFERENTIAL; PLATELET ESTIMATE, MANUAL NORMAL (130-450,000) (NORMAL); PLATELET MORPHOLOGY NORMAL APPEARANCE (NORMAL); RBC MORPHOLOGY (MULTIPLE) 1+ ANISOCYTOSIS (NORMAL); WBC MORPHOLOGY (MULTIPLE) NORMAL APPEARANCE (NORMAL)
[2022-08-16 06:23] LABS: ALBUMIN 1.9 g/dL (3.2-5.5); ALBUMIN/GLOBULIN RATIO 0.6 (1.0-2.2); ALKALINE PHOSPHATASE 45 IU/L (42-121); ALT ALANINE AMINOTRANSFERASE 11 IU/L (10-60); AST ASPARTATE AMINOTRANSFERASE 14 IU/L (10-42); BILIRUBIN,TOTAL 0.7 mg/dL (0.2-1.0); CALCIUM 7.6 mg/dL (8.5-10.3); CREATININE 6.1 mg/dL (0.6-1.2); GFR - MDRD 9 (>89); GLUCOSE 431 mg/dL (70-100); MAGNESIUM 2.6 mg/dL (1.7-2.8); PHOSPHORUS 4.9 mg/dL (2.5-4.6); POTASSIUM 3.2 mmol/L (3.5-5.0); PREALBUMIN 12 mg/dL (18-45); SODIUM 154 mmol/L (135-145); TOTAL PROTEIN 5.2 g/dL (6.7-8.2); TRIGLYCERIDES 265 mg/dL
[2022-08-16 06:25] LABS: BUN - BLOOD UREA NITROGEN 186 mg/dL (6-20); CARBON DIOXIDE - CO2 > 45 mmol/L (21-32); CHLORIDE 79 mmol/L (101-111)
[2022-08-16] MEDS ORDERED: INSULIN REGULAR HUMAN 100 UNIT/1 ML 10 ML MDV SUBQ STA (06:27)
[2022-08-16] MEDS ORDERED: INSULIN REGULAR HUMAN 300 UNIT/3 ML VIAL SUBQ STA (06:35)
[2022-08-16] MEDS: guaiFENesin 600 MG TABLET PO SCH (08:51)
[2022-08-16] MEDS: ENOXAPARIN 30 MG/0.3 ML SYRINGE SUBQ SCH (08:51)
[2022-08-16] MEDS: DEXAMETHASONE 4 MG/ML VIAL IVP SCH (08:51)
[2022-08-16] MEDS: CHLORHEXIDINE GLUCONATE 15 ML UDC PO SCH ×2 (08:51→20:27)
[2022-08-16] MEDS: TAMSULOSIN 0.4 MG CAPSULE PO SCH (09:00)
[2022-08-16] MEDS ORDERED: GLYCOPYRROLATE 1 MG/5 ML VIAL SUBQ PRN (15:09)
[2022-08-16] MEDS ORDERED: HALOPERIDOL 5 MG/ML VIAL IVP PRN (15:09)
--- NOTE | 2022-08-16 15:18 | ADVANCE CARE PLANNING NOTE ---
Advance Care Planning - Planning Encounter Date: 08/16/22 Time: 14:30 Purpose: To determine family's wishes regarding direction of his care, possibly to transition to comfort care. Parties in Attendance: I spoke to the daughter Kiara and her outside of the patient's room. Decisional Capacity of the Patient: He is currently uremic and lethargic and cannot make any medical decisions for himself. - Diagnosis for Encounter (1) Hypotension Summary: For the last several days his blood pressure has been dropping despite receiving IV hydration and maximum support for his COVID-pneumonia, COPD exacerbation, ileus with gastric retention, hypernatremia, and his acute on chronic kidney disease. He is in the ICU on BIPAP at maximum settings. - Encounter Subjective/Patient's Story: The patient lost his many years ago. When he suffered a stroke 5 years ago and developed severe weakness of the right arm and needed to move into [facility] for help with showering and meals and laundry. Otherwise he is independent, takes his own medicines. He has had CKD and has had a administrative asst monitor him, labs are abnormal but stable and there was never a discussion about what hemodialysis is or his choices for that. He is on home oxygen and he thinks it was ordered for COPD, the daughter can not remember if it was possibly for CHF. He is a diabetic who has refused to take insulin for nearly a year. He finally agreed 1 week before this hospitalization. Several weeks or months ago the daughter made her father state what his choices are for resuscitation because he never wanted to broach that subject. The patient decided to be a DNR/DNI and a POLST form was completed. Recently, when he started to get a cough and abdominal pain, he tested (+) for Covid 3 days before this admissin, and isolated in his apartment at the [facility] for 3 days, did not eat, got weak and called EMS himself. Objective/Medical Story: The patient presented with a COVID-pneumonia, COPD exacerbation, CHF Exacerbation, CKD with a stable creatinine of 3, diabetes with an elevated glucose and elevated A1c. His oxygen needs worsened and he developed gastric fluid retention, needed NG tube placed for decompression which is never improved. Possibly he has a diabetic gastroparesis, was started on Reglan. He needed to be moved to the ICU to have BiPAP and is on maximum settings for this. His diuresis had helped his CHF but then he developed hypernatremia and needed free water hypotonic fluids administered. His creatinine slowly has increased during this hospitalization and in the last 3 days has risen by 1 g daily. He was anuric then had improvement in urine output and today is an uric again and creatinine is 6.1. With low blood pressure in the last 2 days and the above multi organ failures, I called the daughter this morning to tell her that he is probably terminal. The daughter and her arrived and have visited with this patient for 3 hours today. He has been lethargic for the last 2 days, but awakens and is aware. They have done FaceTime with another daughter and the patient's son. He can only nod for communication now. Goals of Care: The daughter clearly stated that her father would not want to linger on and this type of condition. Even if he does somehow survive if she said she can only foresee him being in a wheelchair or needing tube feedings and needing continued oxygen or possibly hemodialysis. The daughter therefore has asked that we change his aggressive and full medical management to comfort measures, to include giving morphine as needed, antiemetics, medications for excessive phlegm and fluids, continue suppl O2, continue ng tube to suction, and to withdraw other medical treatments, such as IV PPN fluids and IV antibiotics. She wants him to be comfortable and not to suffer and not to linger. Kiara and her are aware that he will not survive. The daughter mentioned that when her father did finally fill out the POLST form recently, and made his choices known, he verbalized "I have had a good life". The daughter stated that her sister and her brother are in complete agreement with this decision. Plan: Comfort measures will be ordered. Continue supplemental O2 Continue NG tube to continuous drainage Continue with DNR/DNI Code Status: Do Not Attempt Resuscitation Time spent on advance care plannin min
[2022-08-16] MEDS ORDERED: SCOPOLAMINE PATCH TOP SCH (16:00)
[2022-08-16] MEDS: MORPHINE 2 MG/ML CARPUJECT IVP PRN ×2 (16:06→18:03)
[2022-08-16] MEDS ORDERED: INSULIN REGULAR HUMAN 300 UNIT/3 ML VIAL SUBQ SCH (18:00)
--- NOTE | 2022-08-16 18:51 | PROVIDER PROGRESS NOTE ---
Assessment/Plan - Problem List (1) Hypotension Assessment/Plan: His blood pressures today are "soft" again as low as 70 systolic. This accompanies several days of hypernatremia with sodium of 160>> 156. He had been on Lasix here because of hypoxia and because CHF was reported on chest x-ray. BNP has decreased by being on Lasix. Echo was done this admission that shows diastolic heart failure. The last chest x-ray was not read as having CHF We rechecked lactic acid for possible development of sepsis and was not elevated. Troponins were done and he did not have an acute CT Plan: We changed iv fluids 2 days ago to treat his hypernatremia by giving hypotonic solution using D5Lr, then to D5, to eliminate LR due to SUKHWINDER. We also gave IV albumin to help the blood pressure and promote renal perfusion, for the last 2 days. Condition is critical Today the daughter visited him and an ACP was done and we will be transitioning him to Comfort Care. He will be moved to [facility] status, out of ICU. is imminent in the next 1- 2 days. (2) Acute kidney injury superimposed on CKD I learned from the daughter by phone several days ago, that he has had CKD for several years and is followed by a [employer]. There was no discussion ever had about hemodialysis. Despite improved blood pressure and minor correction of his hypernatremia using fluids and stopping Lasix, his creatinine has increased to 6.1 today. He is again oliguric Plan: We are transitioning him to Comfort Care. (3) Hypernatremia He has been NPO and was on iv NS. Then CXR was read as CHF and NS was decreased. When Na started climbing, he was changed to D5 1/2 NS, then D5 LR and then D5 and PPN Plan: iv fluids will be stopped. Lab draws stopped (3) Diabetic gastroparesis vs Ileus When he felt sick at the [facility] with 3 days of cough (and was COVIDpos), he also had bloating, generalized abd pain and poor appetite but no nausea or vomiting. Then after admission, he had 7 episodes of nausea and vomiting several days ago. Emesis was brown, had no coffee grounds. NPO ordered and NG tube placed. He had 200-600 cc of stomach fluid suctioned out per shift since started. His CT abd done at admission showed a dilated stomach w/ air fluid levels, no other intestinal obstruction was reported. Gen Surg consult done 08/10, and Dr Castellanos advised repeating CT of abd using barium given per ng. That CT did reveal dye entering the colon. Thus the Gen Surgeon's impression was that pt has an ileus. I learned from the daughter by phone that he should have been on Insulin for mos and was refusing it and is a poorly controlled Diabetic. I suspect he has Diabet ic gastroparesis, therefore. Reglan iv scheduled was started 3 days ago Each day that we try NG tube clamping for about 2 hours to check the residual, he either gets abdominal bloating and pain or there is immediate filling of the NG tube after it is clamped Plan: Remain on continuous wall suction for decompression of his large gastric volume, for comfort. (4) Acute on chronic respiratory failure with hypoxemia Impression: He has Home O2, but unclear if this was for CHF or COPD and if it is prn or to use when. He claims it was ordered for COPD, but his only med for COPD is Respimat inhaler. He was admitted with marked desats, needed suppl O2 and the cause appeared to be his COVID pulmonary infection. The CXR did not show any changes, but that was before he received significant fluids in the ED, which were given for hypotension and dehydration. The next CXR suggested volume overload. The next CXR was read as aspiration pneumonia. When he was moved to the ICU, I called his daughter Kiara, and updated her that he is in critical condition. She confirmed that he is a DNR and DNI. Plan: Cont suppl O2, target sat 88%. No ventilator or intubation will be used, is not desired. is imminent in the next 1-2 days. (5) Aspiration PNA On 08/10 his O2 needs increased and he was tachypneic and a CXR showed a new aspiration PNA. This probably happened when he had all the episodes of vomiting several days ago. On 08/11, he needed even higher FIO2 to HiFlow and then at 0400, he was desating more and needed to be transferred into the ICU to be put on BIPAP and 100% FIO2. Blood cultures are negative to date Plan: Comfort packet ordered (6) COVID-19 virus infection Conclusion/Plan: He first got a cough, then malaise and a poor appetite, then weakness and SOB. When he presented to ER he was tachypneic and in severe resp distress, and also described GI bloating and mild abd pain. He completed Remdesivir and Decadron courses Plan: Infectious isolation to continue (7) COPD with exacerbation Conclusion/Plan: His medication list shows he is on Respimat. The patient's told me his oxygen was ordered 6 years ago and it was for COPD. When I spoke to the daughter the first time, she could not remember when and for what Dx O2 was ordered. Plan: Continue O2 and will start giving Morphine for dyspnea. (8) Uncontrolled type 2 diabetes mellitus with insulin therapy (E11.65) Conclusion/Plan: The patient told me at admission that he was on oral medicines for DM for years and has just been put on insulin 1 week ago. Then Pharmacy reported that he was on Insulin since May 2022. Today, I spoke to the daughter Kiara by phone and asked about DM: He was prescribed to take Insulin since May 2022 and has re fused, then inally agreed and staff at his [facility] started giving his sq Insulin just 4-5 days before admission. His glu here are running 300-400, probably from being on Decadron. His A1c came back at 8.6, indicating poor glu control. Plan: He is NPO because of needing ng tube decompression. (10) Chronic diastolic heart failure Conclusion/Plan: BNP was normal at 45, on his first labwork. Then BNP elevated to 256. A repeat CXR showed either fluid or infiltrate. Echo was done 08/10 and it showed LVEF of 55% and diastolic dysfunction probably present (could not be ruled out). Plan: Meds will be stopped. (11) HARJINDER on CPAP Conclusion/Plan: As per history. Plan: Continue with BIPAP and suppl O2 (12) Near syncope Conclusion/Plan: He did have transient "soft" blood pressure that was documented. And, given the SUKHWINDER at admission, I suspect he had dehydration and was probably orthostatic which caused his near syncope before he called EMS. Telemetry has been stable, showing 100% paced rhythm Echo showed LVEF of 55% and diastolic dysfunction probably is present. (13) Pacemaker Conclusion/Plan: On his resting EKG he was 100% ventricular paced rhythm. Unknown if this is an AICD. He thinks it is a plain pacemaker. (14) Hx of CVA Daughter gave me details about a stroke many years ago that left him with severe R arm weakness and he has learned to be Left handed therefore. He moved into [facility] 5 years ago to get meals, laundry and housecleaning. He has a good memory, she said, and he could still drive. - Current Meds Current Meds: Current Medications Generic Name Dose Route Start Last Admin Trade Name Freq PRN Reason Stop Dose Admin Chlorhexidine Gluconate 15 ml 08/12/22 09:00 08/16/22 08:51 Chlorhexidine Gluconate 15 Ml Udc PO 15 ml BID MEG Administration Metoclopramide HCl 5 mg 08/12/22 18:00 08/16/22 18:04 Metoclopramide 10 Mg/2 Ml Vial IVP 5 mg Q6HR MEG Administration Morphine Sulfate 2 mg 08/16/22 15:09 08/16/22 18:03 Morphine 2 Mg/Ml Carpuject IVP 2 mg Q2HR PRN Administration Pain or Shortness of air Ondansetron HCl 4 mg 08/07/22 16:43 08/12/22 09:55 Ondansetron 4 Mg/2 Ml Vial IVP 4 mg Q6HR PRN Administration Nausea / Vomiting Scopolamine HBr 1 patch 08/16/22 16:00 08/16/22 16:04 Scopolamine Patch TOP 1 patch Q3D MEG Administration Sodium Chloride 10 ml 08/07/22 16:43 08/13/22 14:36 Sodium Chloride Flush 0.9% 10 Ml Syringe IVP 10 ml PRN PRN Administration NEEDED PER PROVIDER ORDERS - Lab Result Fish Bone Diagrams: 08/16/22 05:49 08/16/22 05:49 - Additional Planning My Orders: My Active Orders 08/16/22 15:09 Cooling Unit [RC] PRN Warming Unit [RC] PRN Glycopyrrolate [Robinul] 0.2 mg SUBQ Q4H PRN Haloperidol Inj [Haldol Inj] 0.5 mg IVP Q6H PRN Morphine Inj (Carpuject) [Morphine (Carpuject)] 2 mg IVP Q2HR PRN 08/16/22 15:10 Comfort Care [RC] QSHIFT 08/16/22 16:00 Scopolamine Patch [Transderm-Scop] 1 patch TOP Q3D Subjective - Subjective Nursing Reports: Other (He is lethargic, awakens and is aware, only communicates by nodding. He does not appear in distress.) Objective Vital Signs: Vital Signs - 24 hr 08/15/22 08/15/22 08/15/22 19:00 20:00 21:00 Temperature 36.8 C Heart Rate Heart Rate [ 97 97 95 Monitoring electrodes] Respiratory 24 22 23 Rate Blood Pressure 89/44 L 95/47 L 87/45 L [Right Brachial artery] O2 Saturation 93 92 92 If not protocol : Oxygen Flow, liters/minute 08/15/22 08/15/22 08/15/22 22:00 22:30 23:00 Temperature Heart Rate 94 Heart Rate [ 93 96 Monitoring electrodes] Respiratory 24 25 H Rate Blood Pressure 95/43 L 95/48 L [Right Brachial artery] O2 Saturation 92 90 L If not protocol : Oxygen Flow, liters/minute 08/16/22 08/16/22 08/16/22 00:00 01:00 02:00 Temperature Heart Rate Heart Rate [ 95 96 98 Monitoring electrodes] Respiratory 22 24 21 Rate Blood Pressure 95/40 L 97/42 L 103/56 L [Right Brachial artery] O2 Saturation 91 L 92 94 If not protocol : Oxygen Flow, liters/minute 08/16/22 08/16/22 08/16/22 02:40 03:00 04:00 Temperature 37.0 C Heart Rate 95 Heart Rate [ 97 96 Monitoring electrodes] Respiratory 21 25 H Rate Blood Pressure 92/57 L 86/48 L [Right Brachial artery] O2 Saturation 92 92 If not protocol : Oxygen Flow, liters/minute 08/16/22 08/16/22 08/16/22 05:00 06:00 07:00 Temperature Heart Rate 104 H Heart Rate [ 89 102 H 98 Monitoring electrodes] Respiratory 22 18 20 Rate Blood Pressure 99/56 L 101/48 L 82/43 L [Right Brachial artery] O2 Saturation 92 92 92 If not protocol : Oxygen Flow, liters/minute 08/16/22 08/16/22 08/16/22 08:00 09:00 10:00 Temperature 36.7 C Heart Rate Heart Rate [ 97 99 100 Monitoring electrodes] Respiratory 23 21 25 H Rate Blood Pressure 78/45 L 104/69 80/39 L [Right Brachial artery] O2 Saturation 90 L 91 L 89 L If not protocol 10 : Oxygen Flow, liters/minute 08/16/22 08/16/22 08/16/22 11:00 12:00 13:00 Temperature 37.1 C Heart Rate 70 Heart Rate [ 106 H 103 H 70 Monitoring electrodes] Respiratory 27 H 18 20 Rate Blood Pressure 91/41 L 85/39 L 80/44 L [Right Brachial artery] O2 Saturation 89 L 92 90 L If not protocol : Oxygen Flow, liters/minute 08/16/22 08/16/22 08/16/22 14:00 15:00 16:00 Temperature Heart Rate Heart Rate [ 70 70 70 Monitoring electrodes] Respiratory 26 H 30 H 16 Rate Blood Pressure 72/42 L 71/36 L 71/42 L [Right Brachial artery] O2 Saturation 90 L 91 L 92 If not protocol : Oxygen Flow, liters/minute 08/16/22 18:00 Temperature Heart Rate Heart Rate [ 70 Monitoring electrodes] Respiratory 19 Rate Blood Pressure 67/42 L [Right Brachial artery] O2 Saturation 94 If not protocol : Oxygen Flow, liters/minute Oxygen O2 Source BIPAP I&O (Last 24 Hrs): Intake and Output Totals x24h 08/14/22 08/15/22 08/16/22 23:59 23:59 23:59 Intake Total 2745.25 2938.75 2085.667 Output Total 1780 3454 1719 Balance 965.25 -515.25 366.667 General: Other (Lethargic) HEENT: Other (On BIPAP and with NG tube to drainage) Neuro: Other (Lethargic) Cardiovascular: Regular rate Respiratory: Other (diminished, by report) Abdomen: No tenderness - Results Results: Laboratory Results WBC 24.3 x10^3/uL (4.8-10.8) H 08/16/22 05:49 RBC 3.59 10^6/uL (4.70-6.10) L 08/16/22 05:49 Hgb 10.8 g/dL (14.0-18.0) L 08/16/22 05:49 Hct 36.3 % (42.0-52.0) L 08/16/22 05:49 MCV 101.1 fL (80.0-94.0) H 08/16/22 05:49 MCH 30.1 pg (27.0-31.0) 08/16/22 05:49 MCHC 29.8 g/dL (32.0-36.0) L 08/16/22 05:49 RDW 13.6 % (12.0-15.0) 08/16/22 05:49 Plt Count 154 10^3/uL (130-450) 08/16/22 05:49 MPV 11.1 fL (7.4-11.4) 08/16/22 05:49 Neut # (Auto) Not Reportable 08/16/22 05:49 Lymph # (Auto) Not Reportable 08/16/22 05:49 [place] # (Auto) Not Reportable 08/16/22 05:49 Eos # (Auto) Not Reportable 08/16/22 05:49 Baso # (Auto) Not Reportable 08/16/22 05:49 Absolute Nucleated RBC Not Reportable 08/16/22 05:49 Total Counted 100 08/16/22 05:49 Band Neuts % (Manual) 3 % (0-10) 08/16/22 05:49 Abnorm Lymph % (Manual) 0 % 08/16/22 05:49 Nucleated RBC % Not Reportable 08/16/22 05:49 Neutrophils # (Manual) 23.1 10^3/uL (1.5-6.6) H 08/16/22 05:49 Lymphocytes # (Manual) 0.7 10^3/uL (1.5-3.5) L 08/16/22 05:49 Monocytes # (Manual) 0.5 10^3/uL (0.0-1.0) 08/16/22 05:49 Eosinophils # (Manual) 0.0 10^3/uL (0-0.7) 08/16/22 05:49 Basophils # (Manual) 0.0 10^3/uL (0-0.1) 08/16/22 05:49 Differential Comment MANUAL DIFFERENTIAL 08/16/22 05:49 WBC Morphology NORMAL APPEARANCE (NORMAL) 08/16/22 05:49 Platelet Estimate NORMAL (130-450,000) (NORMAL) 08/16/22 05:49 Platelet Morphology NORMAL APPEARANCE (NORMAL) 08/16/22 05:49 RBC Morph Micro Appear 1+ ANISOCYTOSIS (NORMAL) 08/16/22 05:49 Sodium 154 mmol/L (135-145) H 08/16/22 05:49 Potassium 3.2 mmol/L (3.5-5.0) L 08/16/22 05:49 Chloride 79 mmol/L (101-111) L* 08/16/22 05:49 Carbon Dioxide > 45 mmol/L (21-32) H* 08/16/22 05:49 Anion Gap 30.0 (6-13) H 08/16/22 05:49 BUN 186 mg/dL (6-20) H* 08/16/22 05:49 Creatinine 6.1 mg/dL (0.6-1.2) H 08/16/22 05:49 Estimated GFR (MDRD) 9 (>89) L 08/16/22 05:49 Glucose 431 mg/dL (70-100) H 08/16/22 05:49 Estimat Average Glucose 200 mg/dL (70-100) H 08/09/22 06:32 Hemoglobin A1c % 8.6 % (4.27-6.07) H 08/09/22 06:32 Lactic Acid 2.1 mmol/L (0.5-2.2) 08/13/22 10:56 Calcium 7.6 mg/dL (8.5-10.3) L 08/16/22 05:49 Phosphorus 4.9 mg/dL (2.5-4.6) H 08/16/22 05:49 Magnesium 2.6 mg/dL (1.7-2.8) 08/16/22 05:49 Total Bilirubin 0.7 mg/dL (0.2-1.0) 08/16/22 05:49 AST 14 IU/L (10-42) 08/16/22 05:49 ALT 11 IU/L (10-60) 08/16/22 05:49 Alkaline Phosphatase 45 IU/L (42-121) 08/16/22 05:49 B-Natriuretic Peptide 90 pg/mL (5-100) 08/13/22 04:47 Total Protein 5.2 g/dL (6.7-8.2) L 08/16/22 05:49 Albumin 1.9 g/dL (3.2-5.5) L 08/16/22 05:49 Globulin 3.3 g/dL (2.1-4.2) 08/16/22 05:49 Albumin/Globulin Ratio 0.6 (1.0-2.2) L 08/16/22 05:49 Prealbumin 12 mg/dL (18-45) L 08/16/22 05:49 Triglycerides 265 mg/dL (-149) H 08/16/22 05:49 Lipase 83 U/L (22-51) H 08/07/22 10:11 Nasal Adenovirus (PCR) NOT DETECTED 08/07/22 13:32 Nasal B. parapertussis DNA (PCR) NOT DETECTED 08/07/22 13:32 Nasal Coronavir 229E PCR NOT DETECTED 08/07/22 13:32 Nasal Coronavir HKU1 PCR NOT DETECTED 08/07/22 13:32 Nasal Coronavir NL63 PCR NOT DETECTED 08/07/22 13:32 Nasal Coronavir OC43 PCR NOT DETECTED 08/07/22 13:32 Nasal Enterovir/Rhinovir PCR NOT DETECTED 08/07/22 13:32 Nasal Influenza B PCR NOT DETECTED 08/07/22 13:32 Nasal Influenza A PCR NOT DETECTED 08/07/22 13:32 Nasal Parainfluen 1 PCR NOT DETECTED 08/07/22 13:32 Nasal Parainfluen 2 PCR NOT DETECTED 08/07/22 13:32 Nasal Parainfluen 3 PCR NOT DETECTED 08/07/22 13:32 Nasal Parainfluen 4 PCR NOT DETECTED 08/07/22 13:32 Nasal RSV (PCR) NOT DETECTED 08/07/22 13:32 Nasal Screen MRSA (PCR) NEGATIVE (NEGATIVE) 08/12/22 04:20 Nasal B.pertussis DNA PCR NOT DETECTED 08/07/22 13:32 Nasal C.pneumoniae (PCR) NOT DETECTED 08/07/22 13:32 Storm Human Metapneumo PCR NOT DETECTED 08/07/22 13:32 Nasal M.pneumoniae (PCR) NOT DETECTED 08/07/22 13:32 Nasal SARS-CoV-2 (PCR) DETECTED A 08/07/22 13:32
[2022-08-17] MEDS: METOCLOPRAMIDE 10 MG/2 ML VIAL IVP SCH ×2 (00:29→06:39)
[2022-08-17] MEDS: MORPHINE 2 MG/ML CARPUJECT IVP PRN ×2 (02:22→10:27)
[2022-08-17 09:00] VITALS: BP 38/26
[2022-08-17] MEDS: SODIUM CHLORIDE FLUSH 0.9% 10 ML SYRINGE IVP PRN (09:24)
[2022-08-17] MEDS: CHLORHEXIDINE GLUCONATE 15 ML UDC PO SCH (09:25)
--- NOTE | 2022-08-17 11:32 | Discharge Plan ---
Discharge Plan Problem Reviewed?: Yes Disposition: 20 Condition: Serious No Smoking: If you smoke, Please STOP! Call for help.
--- NOTE | 2022-08-18 17:31 | DISCHARGE SUMMARY ---
Discharge Summary Admit Date: 08/07/22 Discharge Date: 08/17/22 Code Status: Do Not Attempt Resuscitation Discharge Disposition: 20 - DIAGNOSES Admission Diagnoses: Acute on chronic hypoxic respiratory failure COVID 19 infection Near syncope CHF, unknown if systolic or diastolic Uncontrolled DM2, insulin requiring HARJINDER on CPAP COPD SUKHWINDER in CKD s/p pacemaker placement - HPI History of Present Illness: Per H&P: This is an 86 y/o WM who lives in [facility] at [facility]. He has a "Hx of CHF" unknown if systolic or diatolic heart failure, CKD, has a pacemaker, HARJINDER on CPAP and is on Home O2 set at 2L/min for "COPD" per the pt and daughter says he uses it prn or at night. He has a Hx of bilateral carotid surgeries and Hx of a CVA with residual R arm weakness. For 4-5 days he has had malaise, weakness, no appetite and a cough. He then tested Covid (+) 3 days ago, and has been in isolation and eating very little. Today he felt lightheaded when stood up and called EMS. At the scene, his BP was 147/65, HR 94, O2 sat 89% on room air and 100% sat on 2L/min O2 per n.c. He received iv fluids en route. In the ED, he dropped his BP to 113 syst and was continued on iv fluids and also continued on suppl O2. His work-up shows creat 3.1 (is usually 2.4), WBC 9.7, Lactic Acid was not done, BNP 45 and CXR was without infiltrate or CHF, EKG is 100% ventr. paced, Covid re-test is (+) today. He has rhonchi and wheezing and his O2 needs have worsened while in ED, and he has most recently needed 15 L/min of O2 via oximizer. BP is now hypertensive at 180 systolic. He also c/o abd crampy pain in ED and a CT abd was done that showed alot of gas, no obstruction or other findin gs. His CODE BLUE status is Full Code, and specifically the ED provider asked if he would be OK if he needed a ventilator and he said yes. Then later, when the daughter arrived to the ED at bedside, Dr Kwan reviewed in detail what intubation and vent use entails, and the Pt does not want to be intubated. - HOSPITAL COURSE Hospital Course: Pt was admitted with acute hypoxic respiratory failure d/t COVID 19 infection. He was initiated on appropriate therapy and care was escalated to the ICU as he was requiring BIPAP. He developed worsening renal dysfunction and was felt to be encephalopathic d/t uremia. Care conference occurred on 08/15/22. Plans were in place for a Palliative Care consult, but that was not available on the holiday. On 08/16/22, dtr elected to transition to comfort care. He peacefully on the morning of 08/17/22. - ALLERGIES Allergies/Adverse Reactions: Allergies Allergy/AdvReac Type Severity Reaction Status Date / Time No Known Drug Allergies Allergy Verified 08/07/22 10:02 - LABS Result Diagrams: 08/16/22 05:49 08/16/22 05:49
== END 2022-08-17 10:37 | disposition expired | DRG 177 ==
LOC: EDUNIT# → ED 09:28 → MS2 16:43 → ICU 08-12 04:05
PROVIDERS: ADMIT Internal Medicine; ATTEND Family Medicine
PROC: XW033E5 Introduction of Remdesivir Anti-infective into Peripheral Vein, Percutaneous Approach, New Technology Group 5 (ICD-10-PCS; principal; 2022-08-07)
PROC: 3E0333Z Introduction of Anti-inflammatory into Peripheral Vein, Percutaneous Approach (ICD-10-PCS; 2022-08-07)
DX: U07.1 COVID-19 (principal); J12.82 Pneumonia due to coronavirus disease 2019; R09.02 Hypoxemia; R55 Syncope and collapse; I50.9 Heart failure, unspecified; R10.9 Unspecified abdominal pain; J96.21 Acute and chronic respiratory failure with hypoxia; J69.0 Pneumonitis due to inhalation of food and vomit; N17.9 Acute kidney failure, unspecified; K56.7 Ileus, unspecified; E87.0 Hyperosmolality and hypernatremia; J44.1 Chronic obstructive pulmonary disease with (acute) exacerbation; I50.32 Chronic diastolic (congestive) heart failure; E87.1 Hypo-osmolality and hyponatremia; E86.0 Dehydration; E11.65 Type 2 diabetes mellitus with hyperglycemia; G47.33 Obstructive sleep apnea (adult) (pediatric); E11.22 Type 2 diabetes mellitus with diabetic chronic kidney disease; N18.9 Chronic kidney disease, unspecified; I95.9 Hypotension, unspecified; K40.90 Unilateral inguinal hernia, without obstruction or gangrene, not specified as recurrent; R11.2 Nausea with vomiting, unspecified; R63.0 Anorexia; E11.43 Type 2 diabetes mellitus with diabetic autonomic (poly)neuropathy; K31.84 Gastroparesis; Z66 Do not resuscitate; I69.331 Monoplegia of upper limb following cerebral infarction affecting right dominant side; Z95.0 Presence of cardiac pacemaker; Z79.84 Long term (current) use of oral hypoglycemic drugs; Z99.81 Dependence on supplemental oxygen; Z87.891 Personal history of nicotine dependence; Z51.5 Encounter for palliative care
CPT/HCPCS: 36415; 71045; 74150; 74176; 80048; 80053; 82040; 83036; 83605; 83690; 83735; 83880; 84100; 84134; 84295; 84478; 85025; 87150; 87633; 93005; 93308; 94640; 94660; 96374; 96375; 99285; 99291; A9270; J1170; J1650; J1815; J2765; J3490; P9047; Q9963